=== PATIENT | female | born 1945 | race Caucasian/White ===

== ENCOUNTER 2018-11-07 14:18 | Inpatient (IN) | payer MEDICARE, OTHER ==
[2018-11-07] MEDS ORDERED: DIMETHICONE TP PRN (17:11)
[2018-11-07] MEDS ORDERED: NON-FORMULARY ITEM (Hydrocodone/Apap 5-325 Tab^^^ 1 TAB) PO PRN (17:11)
[2018-11-07] MEDS ORDERED: Oxy-IR 5 MG PO PRN (17:11)
[2018-11-07] MEDS ORDERED: NORCO 5/325 MG PO PRN (17:18)
[2018-11-07] MEDS: VITAMIN D2 PO SCH (17:22)
[2018-11-07] MEDS ORDERED: MEDICATION INTERVENTION PO SCH (17:30)
[2018-11-07] MEDS ORDERED: MEDICATION INTERVENTION MC SCH (17:30)
[2018-11-07] MEDS: Toprol Xl 50 MG PO SCH (21:30)
[2018-11-07] MEDS: Vitamin C 500 MG PO SCH (21:30)
[2018-11-07] MEDS: Apresoline 25 MG TABLET PO SCH (21:30)
[2018-11-07] MEDS: xanAX 0.5 MG PO SCH (21:30)
[2018-11-07] MEDS: TYLENOL EXTRA STRENGTH 500 MG PO PRN (21:32)
[2018-11-08] MEDS: TYLENOL EXTRA STRENGTH 500 MG PO PRN ×2 (05:37→15:08)
[2018-11-08] MEDS: Vitamin C 500 MG PO SCH ×3 (05:37→21:11)
[2018-11-08] MEDS: Cyclobenzaprine 10 MG PO PRN (08:18)
[2018-11-08] MEDS ORDERED: ANASTROZOLE 1 MG PO SCH (10:00)
[2018-11-08] MEDS ORDERED: Aplisol ID ONE (10:00)
[2018-11-08] MEDS ORDERED: NON-FORMULARY ITEM (Potassium Chloride [K-Dur] 20 MEQ) PO SCH (10:00)
[2018-11-08] MEDS: Apresoline 25 MG TABLET PO SCH ×3 (10:24→21:11)
[2018-11-08] MEDS: MAG-OX 400 PO SCH (10:24)
[2018-11-08] MEDS: Colace 100 MG PO SCH ×2 (10:24→21:11)
[2018-11-08] MEDS: ULTRAM 50 MG PO PRN ×3 (10:24→23:24)
[2018-11-08] MEDS: Klor Con 10 MEQ PO SCH (10:25)
[2018-11-08] MEDS: Toprol Xl 50 MG PO SCH ×2 (10:25→21:11)
[2018-11-08] MEDS: ECOTRIN 81 MG PO SCH (10:25)
[2018-11-08] MEDS: Lasix 40 MG PO SCH (10:25)
[2018-11-08] MEDS: xanAX 0.5 MG PO SCH ×2 (10:25→21:11)
[2018-11-08] MEDS: NORVASC 5 MG PO SCH (10:25)
[2018-11-09] MEDS: Vitamin C 500 MG PO SCH ×3 (04:44→21:34)
[2018-11-09] MEDS: ULTRAM 50 MG PO PRN ×2 (04:44→21:34)
--- NOTE | 2018-11-09 08:03 | HP ---
HISTORY OF PRESENT ILLNESS: This is a 73 year-old patient of mine transferred from [facility] to a swing-bed after having a fall outside her house when she was trying to climb up onto the lawnmower. She reports she does not think she lifted her foot up enough and tumbled backwards. She was found to have a right radius fracture which she had surgery on 11/03/2018 as well as a left fifth metatarsal fracture and a lumbar compression fracture. She is right-handed and lives alone. She has a brother and [id number] that [place]. She reports that she is having some trouble with the opioid pain medication as it makes her nauseated. She is asking about having a shoe that she can put on instead of a whole boot when she has to get up and use the bathroom in the middle of the night. She reports she has not had a bowel movement since she went into the hospital at [facility] on and had some abdominal pain from constipation. She reports a good appetite. When she fell she denied hitting her head or any loss of consciousness. She was actually able to get up and walk to the house to call for help as there was no one nearby that saw her fall and she did not have her cell phone with her. REVIEW OF SYSTEMS: No chest pain. No shortness of breath. No nausea. She has constipation. No diarrhea. No dysuria. No rash. No fever. MEDICATIONS: Please see the home medication reconciliation form which I have reviewed. ALLERGIES: CODEINE, MORPHINE, OLMESARTAN MEDOXOMIL. PAST MEDICAL HISTORY: Hypertension. Anxiety. Stage I breast cancer in 2015 [address] follows with [address] Espinosa. PAST SURGICAL HISTORY: Left breast surgery. Tonsillectomy. Left knee surgery with Dr. Moody [place]ay[place]. Colonoscopy in 2013. Hysterectomy for left ovarian cyst and fibroid. Right wrist surgery with Dr. Brand. SOCIAL HISTORY: She lives alone. No tobacco or alcohol use. FAMILY HISTORY: Her mother had congestive heart failure, father had mitral valve regurgitation. Her sister had a malignant tumor of the breast. PHYSICAL EXAMINATION: VITAL SIGNS: Temperature current 98.1F, heart rate 86, respiratory rate 18, blood pressure 118/75, weight 81.7 kg. Oxygen saturation 94% on room air. GENERAL: The patient is a pleasant talkative lady sitting up in no acute distress. CVS: She has a regular rate and rhythm. No murmurs, gallops or rubs are appreciated. CHEST: Clear to auscultation bilaterally. ABDOMEN: Soft, nontender, nondistended with normal bowel sounds. EXTREMITIES: No clubbing, cyanosis or edema. SKIN: She has bruising over her left foot and ankle. She has a splint in place around her right wrist. The soft part of the splint is causing some swelling of her right thumb. She has good capillary refill in all five fingers. LABORATORY DATA AND TESTS: None here although reviewed her labs from [facility]. Her creatinine was very slightly elevated. ASSESSMENT AND PLAN: 1) RIGHT RADIAL FRACTURE: She has a splint in place and follow up scheduled with the orthopedic surgeon that did her surgery. 2) LEFT FIFTH METATARSAL FRACTURE: She has a boot that she is to wear. 3) LUMBAR SPINE COMPRESSION FRACTURE: She is to see neurosurgery in about six weeks. 4) GAIT INSTABILITY: She has PT and OT working with her while here in rehab. 5) HYPERTENSION: Will continue her home antihypertensive. 6) ANXIETY: Will continue her home medication. 7) DEEP VENOUS THROMBOSIS PROPHYLAXIS: Will start Lovenox as it is hard to wear SCD and ALFIE hose with a fracture of her left fifth metatarsal. I discussed this with the patient this morning.
[2018-11-09] MEDS: Toprol Xl 50 MG PO SCH ×2 (08:21→21:34)
[2018-11-09] MEDS: xanAX 0.5 MG PO SCH ×2 (08:21→21:34)
[2018-11-09] MEDS: Colace 100 MG PO SCH ×2 (08:21→21:34)
[2018-11-09] MEDS: TYLENOL EXTRA STRENGTH 500 MG PO PRN ×2 (08:21→14:35)
[2018-11-09] MEDS: Klor Con 10 MEQ PO SCH (08:21)
[2018-11-09] MEDS: MAG-OX 400 PO SCH (08:21)
[2018-11-09] MEDS: Lasix 40 MG PO SCH (08:22)
[2018-11-09] MEDS: ENOXAPARIN SODIUM SQ SCH (08:22)
[2018-11-09] MEDS: NORVASC 5 MG PO SCH (08:22)
[2018-11-09] MEDS: Apresoline 25 MG TABLET PO SCH ×3 (08:22→21:34)
[2018-11-09] MEDS: ECOTRIN 81 MG PO SCH (08:22)
[2018-11-09] MEDS: SENOKOT 8.6 MG PO PRN (08:23)
[2018-11-10] MEDS: Vitamin C 500 MG PO SCH ×3 (06:11→21:32)
--- NOTE | 2018-11-10 08:25 | PCM.NOTE ---
Date and Time: 11/10/18818 Subjective Assessment: Patient reports continued trouble getting packages open like her brown sugar for her oatmeal this AM. She reports back pain this AM after being in bed for 3 hours. She reports sleeping well. She was able to have a stool yesterday but not much. She has a walker with a arm rest for her right arm and states this is working well for her. She is anxious to know when she can go home. - Review of Systems Constitutional: No Symptoms Eyes: No Symptoms Ears, Nose, & Throat: No Symptoms Respiratory: No Symptoms, No Short Of Breath Cardiac: No Symptoms Abdominal/Gastrointestinal: Constipation Genitourinary Symptoms: No Symptoms Musculoskeletal: Other (back pain) Objective Exam General Appearance: no apparent distress, alert Neurologic Exam: alert, cooperative, normal mood/affect Skin Exam: normal color, warm, dry Wound Assessment: Skin/Wound Assessment Wound/Incision Assessment Start: 11/07/18 17: 30 Text: Status: Active Freq: Q12H Protocol: Document 11/09/18 20:00 BW (Rec: 11/09/18 20:46 BW [id number]) Wound/Incision Assessment Left Distal Toe Wound Assessment Shift Assessment Wound Type left 5th toe fracture Wound Stage Non Pressure Wound Drainage Amount None General Appearance Open to air Clean/Dry Comment bruising to bottom lateral aspect of toe-greenish brown in color Right Lower Arm Wound Assessment Shift Assessment Wound Type fracture with splinting Dressing Status Dry & Intact Drainage Amount None Drainage Odor None/Absent Comment Right wrist/arm wrapped in splint/cast Wound Photo Photo Taken No Respiratory Exam: normal breath sounds, lungs clear, No crackles/rales, No rhonchi, No wheezing Cardiovascular Exam: regular rate/rhythm, normal heart sounds, No murmur, No friction rub, No gallop Gastrointestinal/Abdomen Exam: soft, normal bowel sounds, No tenderness, No distention Extremity Exam: other (no c/c/e; brusing over left foot and ankle; right wrist/ forearm in splint) OBJECTIVE DATA Vital Signs: Vital Signs - 24 hr Temp Pulse Resp BP Pulse Ox 11/10/18 07:00 97 11/09/18 19:49 97.9 F 87 18 136/82 96 Oxygen-Last 24 hours O2 Percentage 2 Liters = 28% Pain Assessment - Last Documented Pain Intensity 3 Pain Scale Used 0-10 Pain Scale,FLACC Intake and Output: Intake & Output 11/08/18 11/09/18 11/10/18 11/11/18 06:59 06:59 06:59 06:59 Intake Total 456 877 1118 Balance 558 423 5189 Weight 81.7 kg 81.7 kg Assessment/Plan (1) Right radial fracture Current Visit: Yes Status: Acute Qualifiers: Encounter type: subsequent encounter Assessment & Plan: Management per ortho/trauma surgeon whom patient will follow up with as an outpatient. S/p surgery on 11/03/18. Code(s): S52.91XA - UNSP FRACTURE OF RIGHT FOREARM, INIT FOR CLOS FX (2) Metatarsal fracture Current Visit: Yes Status: Acute Qualifiers: Metatarsal bone: fifth Fracture type: closed Laterality: left Fracture healing: with routine healing Assessment & Plan: Continue boot; follow up with ortho/trauma surgeon as outpatient. (3) Compression fx, lumbar spine Current Visit: Yes Status: Acute Assessment & Plan: Follow up scheduled with neurosurgery. Continue tramadol as needed for pain. (4) Gait instability Current Visit: Yes Status: Acute Assessment & Plan: Has walker with arm rest in room; PT/OT following and treating. Code(s): R26.81 - UNSTEADINESS ON FEET (5) Hypertension Current Visit: Yes Status: Acute Assessment & Plan: well controlled. Code(s): I10 - ESSENTIAL (PRIMARY) HYPERTENSION (6) Anxiety Current Visit: Yes Status: Acute Assessment & Plan: Continue home medication. Code(s): F41.9 - ANXIETY DISORDER, UNSPECIFIED (7) DVT prophylaxis Current Visit: Yes Status: Acute Assessment & Plan: Continue lovenox as SCD And blayne hose difficult to use with 5th metatarsal fx. Code(s): Z29.9 - ENCOUNTER FOR PROPHYLACTIC MEASURES, UNSPECIFIED
[2018-11-10] MEDS: Klor Con 10 MEQ PO SCH (10:10)
[2018-11-10] MEDS: ECOTRIN 81 MG PO SCH (10:11)
[2018-11-10] MEDS: ENOXAPARIN SODIUM SQ SCH (10:11)
[2018-11-10] MEDS: MAG-OX 400 PO SCH (10:11)
[2018-11-10] MEDS: xanAX 0.5 MG PO SCH ×2 (10:11→21:32)
[2018-11-10] MEDS: ULTRAM 50 MG PO PRN (10:11)
[2018-11-10] MEDS: Toprol Xl 50 MG PO SCH ×2 (10:11→21:32)
[2018-11-10] MEDS: Apresoline 25 MG TABLET PO SCH ×3 (10:11→21:32)
[2018-11-10] MEDS: Colace 100 MG PO SCH ×2 (10:11→21:32)
[2018-11-10] MEDS: Lasix 40 MG PO SCH (10:11)
[2018-11-10] MEDS: NORVASC 5 MG PO SCH (10:11)
[2018-11-10] MEDS: TYLENOL EXTRA STRENGTH 500 MG PO PRN ×2 (12:09→21:32)
[2018-11-11] MEDS: Vitamin C 500 MG PO SCH ×3 (06:40→21:01)
[2018-11-11] MEDS: ULTRAM 50 MG PO PRN ×3 (06:40→21:01)
--- NOTE | 2018-11-11 08:20 | PCM.NOTE ---
Date and Time: 11/11/18818 Subjective Assessment: doing ok, stable - Review of Systems Constitutional: No Fever, No Chills Eyes: No Symptoms Ears, Nose, & Throat: No Symptoms Respiratory: No Cough, No Short Of Breath Cardiac: No Chest Pain, No Edema, No Syncope Abdominal/Gastrointestinal: No Abdominal Pain, No Nausea, No Vomiting, No Diarrhea Genitourinary Symptoms: No Dysuria Musculoskeletal: No Back Pain, No Neck Pain Skin: No Rash Neurological: No Dizziness, No Focal Weakness, No Sensory Changes Psychological: No Symptoms Endocrine: No Symptoms Hematologic/Lymphatic: No Symptoms Immunological/Allergic: No Symptoms Objective Exam General Appearance: no apparent distress, alert Neurologic Exam: alert, oriented x 3, cooperative, normal mood/affect, nml cerebellar function, sensation nml, No motor deficits Skin Exam: normal color, warm, dry Wound Assessment: Skin/Wound Assessment Wound/Incision Assessment Start: 11/07/18 17: 30 Text: Status: Active Freq: Q12H Protocol: Document 11/10/18 20:00 MG (Rec: 11/10/18 21:46 MG [id number]) Wound/Incision Assessment Left Distal Toe Wound Assessment Shift Assessment Wound Type left 5th toe fracture Wound Stage Non Pressure Wound Drainage Amount None General Appearance Open to air Clean/Dry Comment bruising to bottom lateral aspect of toe-greenish brown in color Right Lower Arm Wound Assessment Shift Assessment Wound Type fracture with splinting Dressing Status Dry & Intact Drainage Amount None Drainage Odor None/Absent Comment Right wrist/arm wrapped in splint/cast Eye Exam: PERRL, EOMI, eyes nml inspection Ears, Nose, Throat Exam: normal ENT inspection, pharynx normal, moist mucous membranes Neck Exam: normal inspection, non-tender, supple, full range of motion Respiratory Exam: normal breath sounds, lungs clear, No respiratory distress Cardiovascular Exam: regular rate/rhythm, normal heart sounds Gastrointestinal/Abdomen Exam: soft, No tenderness, No mass Extremity Exam: normal inspection, normal range of motion Back Exam: normal inspection, normal range of motion, No CVA tenderness, No vertebral tenderness Pelvic Exam: deferred Rectal Exam: deferred OBJECTIVE DATA Vital Signs: Vital Signs - 24 hr Temp Pulse Resp BP Pulse Ox 11/11/18 08:12 96 11/11/18 07:29 98.6 F 81 18 131/89 92 L 11/10/18 20:00 98.2 F 96 H 18 125/69 92 L 11/10/18 19:52 89 L 11/10/18 15:04 94 L 11/10/18 11:01 93 L Oxygen-Last 24 hours O2 Percentage 2 Liters = 28% Pain Assessment - Last Documented Pain Intensity 3 Pain Scale Used [facility] Intake and Output: Intake & Output 11/08/18 11/09/18 11/10/18 11/11/18 11:59 11:59 11:59 11:59 Intake Total 517 962 1270 800 Balance 905 670 0483 800 Weight 81.7 kg 81.7 kg Multi-Disciplinary Progress Notes: Multi-Disciplinary Progress Notes 11/10/18 15:13 Case Management Note by Adore Hayward VISITED WITH PT AND REVIEWED DISCHARGE PLAN, WANTS TO MAXIMIZE SWING BED DAYS FOR PT AND OT. AGAIN, DISCUSSED HOME WITH [facility] VS HOME WITH OUTPATIENT PT/OT. HOPING FOR OUTPATIENT, BUT WANTS TO WAIT UNTIL CLOSER TO DC TIME TO MAKE DECISION. NO ADDNL NEEDS IDENTIFIED AT PRESENT. WILL FOLLOW. Initialized on 11/10/18 15:13 - END OF NOTE Assessment/Plan (1) Compression fx, lumbar spine Current Visit: Yes Status: Chronic Qualifiers: Encounter type: subsequent encounter Fracture healing: with routine healing Assessment & Plan: Last Vital Signs Temp 98.6 F 11/11/18 07:29 Pulse 81 11/11/18 07:29 Resp 18 11/11/18 07:29 BP 131/89 11/11/18 07:29 Pulse Ox 96 11/11/18 08:12 Allergies codeine [Codeine] Allergy (Severe, Verified 02/16/18 08:50) Nausea morphine Allergy (Intermediate, Verified 02/16/18 08:50) Vomiting olmesartan medoxomil [From Benicar] Allergy (Verified 02/16/18 08:50) Active Medications Acetaminophen (Tylenol Extra Strength 500 Mg) 1,000 mg PO Q6HPRN PRN PRN Reason: PAIN Stop: 12/08/18 08:53 Last Admin: 11/10/18 21:32 Dose: 1,000 mg Hydrocodone Bitart/Acetaminophen ([place] 5/325 Mg) 1 tab PO Q4H PRN PRN PRN Reason: PAIN Stop: 11/12/18 17:17 Alprazolam (Xanax 0.5 Mg) 0.5 mg PO BID [facility] Stop: 12/07/18 21:59 Last Admin: 11/10/18 21:32 Dose: 0.5 mg Amlodipine Besylate (Norvasc 5 Mg) 5 mg PO DAILY [facility] Stop: 12/08/18 09:59 Last Admin: 11/10/18 10:11 Dose: 5 mg Ascorbic Acid (Vitamin C 500 Mg) 500 mg PO Q8HT LANIE Stop: 12/07/18 21:59 Last Admin: 11/11/18 06:40 Dose: 500 mg Aspirin (Ecotrin 81 Mg) 81 mg PO DAILY [facility] Stop: 12/08/18 09:59 Last Admin: 11/10/18 10:11 Dose: 81 mg Cyclobenzaprine HCl (Cyclobenzaprine 10 Mg) 5 mg PO BID PRN PRN PRN Reason: pain Stop: 12/07/18 17:10 Last Admin: 11/08/18 08:18 Dose: 5 mg Docusate Sodium (Colace 100 Mg) 100 mg PO BID [facility] Stop: 12/08/18 09:59 Last Admin: 11/10/18 21:32 Dose: 100 mg Enoxaparin Sodium (Enoxaparin Sodium) 40 mg SQ DAILY [facility] Stop: 12/09/18 09:59 Last Admin: 11/10/18 10:11 Dose: 40 mg Ergocalciferol (Vitamin D2) 50,000 unit PO Q7D [facility] Stop: 12/14/18 09:59 Last Admin: 11/07/18 17:22 Dose: Not Given Furosemide (Lasix 40 Mg) 40 mg PO DAILY [facility] Stop: 12/08/18 09:59 Last Admin: 11/10/18 10:11 Dose: 40 mg Hydralazine HCl (Apresoline 25 Mg Tablet) 25 mg PO TID [facility] Stop: 12/07/18 21:59 Last Admin: 11/10/18 21:32 Dose: 25 mg Magnesium Oxide (Mag-Ox 400) 400 mg PO DAILY [facility] Stop: 12/08/18 09:59 Last Admin: 11/10/18 10:11 Dose: 400 mg Metoprolol Succinate (Toprol Xl 50 Mg) 50 mg PO BID [facility] Stop: 12/07/18 21:59 Last Admin: 11/10/18 21:32 Dose: 50 mg Miscellaneous Information (Medication Intervention) 1 each PO .RN TO CHECK ON LANIE Stop: 12/07/18 17:29 Miscellaneous Information (Medication Intervention) 1 each MC .RN TO CHECK ON LANIE Stop: 12/07/18 17:29 Potassium Chloride (Klor Con 10 Meq) 20 meq PO DAILY LANIE Stop: 12/08/18 09:59 Last Admin: 11/10/18 10:10 Dose: 20 meq Senna (Senokot 8.6 Mg) 8.6 mg PO DAILY PRN PRN PRN Reason: CONSTIPATION Stop: 12/08/18 08:53 Last Admin: 11/09/18 08:23 Dose: 8.6 mg Tramadol HCl (Ultram 50 Mg) 50 mg PO Q6H PRN PRN PRN Reason: PAIN Stop: 12/08/18 08:53 Last Admin: 11/11/18 06:40 Dose: 50 mg Intake & Output 11/10/18 11/11/18 11:59 11:59 Intake Total 1700 800 Balance 1700 800 (2) Gait instability Current Visit: Yes Status: Acute Code(s): R26.81 - UNSTEADINESS ON FEET (3) Hypertension Current Visit: Yes Status: Acute Code(s): I10 - ESSENTIAL (PRIMARY) HYPERTENSION (4) Metatarsal fracture Current Visit: Yes Status: Acute Qualifiers: Metatarsal bone: fifth Fracture type: closed Laterality: left Fracture healing: with routine healing
[2018-11-11] MEDS: TYLENOL EXTRA STRENGTH 500 MG PO PRN (09:04)
[2018-11-11] MEDS: MAG-OX 400 PO SCH (09:24)
[2018-11-11] MEDS: NORVASC 5 MG PO SCH (09:24)
[2018-11-11] MEDS: ENOXAPARIN SODIUM SQ SCH (09:25)
[2018-11-11] MEDS: Colace 100 MG PO SCH ×2 (09:25→21:01)
[2018-11-11] MEDS: ECOTRIN 81 MG PO SCH (09:25)
[2018-11-11] MEDS: xanAX 0.5 MG PO SCH ×2 (09:25→21:01)
[2018-11-11] MEDS: Klor Con 10 MEQ PO SCH (09:26)
[2018-11-11] MEDS: Toprol Xl 50 MG PO SCH ×2 (09:27→21:01)
[2018-11-11] MEDS: Lasix 40 MG PO SCH (09:27)
[2018-11-11] MEDS: Apresoline 25 MG TABLET PO SCH ×3 (09:27→21:00)
[2018-11-12] MEDS: ULTRAM 50 MG PO PRN ×3 (04:33→20:17)
[2018-11-12] MEDS: Vitamin C 500 MG PO SCH ×3 (06:42→21:45)
[2018-11-12] MEDS: Cyclobenzaprine 10 MG PO PRN (08:33)
[2018-11-12] MEDS: ENOXAPARIN SODIUM SQ SCH (09:27)
[2018-11-12] MEDS: xanAX 0.5 MG PO SCH ×2 (09:28→21:39)
[2018-11-12] MEDS: Lasix 40 MG PO SCH (09:28)
[2018-11-12] MEDS: Klor Con 10 MEQ PO SCH (09:28)
[2018-11-12] MEDS: Colace 100 MG PO SCH ×2 (09:28→21:39)
[2018-11-12] MEDS: Toprol Xl 50 MG PO SCH ×2 (09:28→21:40)
[2018-11-12] MEDS: Apresoline 25 MG TABLET PO SCH ×3 (09:28→21:39)
[2018-11-12] MEDS: ECOTRIN 81 MG PO SCH (09:28)
[2018-11-12] MEDS: NORVASC 5 MG PO SCH (09:28)
[2018-11-12] MEDS: MAG-OX 400 PO SCH (09:28)
--- NOTE | 2018-11-12 09:47 | PCM.NOTE ---
Date and Time: 11/12/18946 Subjective Assessment: doing better - Review of Systems Constitutional: No Fever, No Chills Eyes: No Symptoms Ears, Nose, & Throat: No Symptoms Respiratory: No Cough, No Short Of Breath Cardiac: No Chest Pain, No Edema, No Syncope Abdominal/Gastrointestinal: No Abdominal Pain, No Nausea, No Vomiting, No Diarrhea Genitourinary Symptoms: No Dysuria Musculoskeletal: No Back Pain, No Neck Pain Skin: No Rash Neurological: No Dizziness, No Focal Weakness, No Sensory Changes Psychological: No Symptoms Endocrine: No Symptoms Hematologic/Lymphatic: No Symptoms Immunological/Allergic: No Symptoms Objective Exam General Appearance: no apparent distress, alert Neurologic Exam: alert, oriented x 3, cooperative, normal mood/affect, nml cerebellar function, sensation nml, No motor deficits Skin Exam: normal color, warm, dry Wound Assessment: Skin/Wound Assessment Wound/Incision Assessment Start: 11/07/18 17: 30 Text: Status: Active Freq: Q12H Protocol: Document 11/12/18 08:00 [facility] (Rec: 11/12/18 09:06 [id number]) Wound/Incision Assessment Left Distal Toe Wound Assessment Shift Assessment Wound Type left 5th toe fracture Wound Stage Non Pressure Wound Drainage Amount None General Appearance Open to air Clean/Dry Comment bruising to bottom lateral aspect of toe-greenish brown in color, no change noted. Right Lower Arm Wound Assessment Shift Assessment Wound Type fracture with splinting Dressing Status Dry & Intact Drainage Amount None Drainage Odor None/Absent Comment Right wrist/arm wrapped in splint/cast, no change noted. Wound Photo Photo Taken No Eye Exam: PERRL, EOMI, eyes nml inspection Ears, Nose, Throat Exam: normal ENT inspection, pharynx normal, moist mucous membranes Neck Exam: normal inspection, non-tender, supple, full range of motion Respiratory Exam: normal breath sounds, lungs clear, No respiratory distress Cardiovascular Exam: regular rate/rhythm, normal heart sounds Gastrointestinal/Abdomen Exam: soft, No tenderness, No mass Extremity Exam: normal inspection, normal range of motion Back Exam: normal inspection, normal range of motion, No CVA tenderness, No vertebral tenderness Pelvic Exam: deferred Rectal Exam: deferred OBJECTIVE DATA Vital Signs: Vital Signs - 24 hr Temp Pulse Resp BP Pulse Ox 11/12/18 07:56 98.7 F 79 17 149/84 93 L 11/12/18 07:10 93 L 11/11/18 20:10 93 L 11/11/18 19:31 98.4 F 84 18 139/78 93 L 11/11/18 17:00 92 L Pain Assessment - Last Documented Pain Intensity 6 Pain Scale Used 0-10 Pain Scale Intake and Output: Intake & Output 11/09/18 11/10/18 11/11/18 11/12/18 11:59 11:59 11:59 11:59 Intake Total 960 1700 800 660 Balance 960 1700 800 660 Weight 81.7 kg Assessment/Plan (1) Compression fx, lumbar spine Current Visit: Yes Status: Chronic Qualifiers: Encounter type: subsequent encounter Fracture healing: with routine healing Assessment & Plan: Chief Complaint Diagnosis deconditioning r/t fall Allergies Allergy/AdvReac Type Severity Reaction Status Date / Time codeine [Codeine] Allergy Severe Nausea Verified 02/16/18 08:50 morphine Allergy Intermediate Vomiting Verified 02/16/18 08:50 olmesartan medoxomil Allergy Verified 02/16/18 08:50 [facility] Vital Signs (Last 24 hours) Temp Pulse Resp BP Pulse Ox 11/12/18 07:56 98.7 F 79 17 149/84 93 L 11/12/18 07:10 93 L 11/11/18 20:10 93 L 11/11/18 19:31 98.4 F 84 18 139/78 93 L 11/11/18 17:00 92 L Home Medications Medication Instructions Recorded Confirmed Last Taken Type Acetaminophen 325 mg [Tylenol 650 mg PO Q8H 11/07/18 11/07/18 11/07/18 History 325 mg] Acetaminophen [Tylenol Extra 1,000 mg PO Q8H PRN 11/07/18 11/07/18 11/07/18 History Strength] Alprazolam 0.25 mg [xanAX 0.25 0.5 mg PO BID 11/07/18 11/07/18 11/07/18 History MG] Amlodipine Besylate 5 mg 5 mg PO DAILY 11/07/18 11/07/18 11/07/18 History [Norvasc 5 mg] Anastrozole [Arimidex] 1 mg PO DAILY 11/07/18 11/07/1811/07/19 History Ascorbic Acid 500 mg [Vitamin C 500 mg PO Q8H 11/07/18 11/07/18 11/07/18 History 500 MG] Aspirin EC 81 mg [Ecotrin 81 81 mg PO DAILY 11/07/18 11/07/18 11/07/18 History mg] Cyclobenzaprine HCl 10 mg 5 mg PO BID PRN 11/07/18 11/07/18 11/07/18 History [Cyclobenzaprine 10 MG] Dimethicone [Monistat Soothing 42 gm TP BID PRN 11/07/18 11/07/18 Unknown History Care] Ergocalciferol (Vitamin D2) 50,000 unit PO Q7D 11/07/18 11/07/18 11/07/18 History [Vitamin D2] Furosemide 40 mg [Lasix 40 40 mg PO DAILY 11/07/18 11/07/18 11/07/18 History MG] HydrALAzine HCL 25 MG TAB 1 tab PO TID 11/07/18 11/07/18 11/07/18 History [Apresoline 25 MG TABLET] Hydrocodone/APAP 5-325 Tab^^^ 1 tab PO Q4H PRN MDD 6 11/07/18 11/07/18 Unknown History [[place] 5-325 Tablet^^^] Magnesium Oxide 400 mg [Mag-Ox 400 mg PO DAILY 11/07/18 11/07/18 11/07/18 History 400] Metoprolol Succinate 50 mg 1 tab PO BID 11/07/18 11/07/18 11/07/18 History [Toprol Xl 50 MG] Oxycodone HCl 5 mg Ir [Oxy-IR 5 5 mg PO Q6H PRN 11/07/18 11/07/18 11/06/18 History MG] Potassium Chloride [K-Dur] 20 meq PO DAILY 11/07/18 11/07/18 11/07/18 History Current Medications Generic Name Dose Route Start Last Admin Trade Name Freq PRN Reason Stop Dose Admin Acetaminophen 1,000 mg 11/08/18 08:57 11/11/18 09:04 Tylenol Extra Strength 500 Mg PO 12/08/18 08:53 1,000 mg Q6HPRN PRN Administration PAIN Hydrocodone Bitart/Acetaminophen 1 tab 11/07/18 17:18 [place] 5/325 Mg PO 11/12/18 17:17 Q4H PRN PRN PAIN Alprazolam 0.5 mg 11/07/18 22:00 11/12/18 09:28 Xanax 0.5 Mg PO 12/07/18 21:59 0.5 mg BID LANIE Administration Amlodipine Besylate 5 mg 11/08/18 10:00 11/12/18 09:28 Norvasc 5 Mg PO 12/08/18 09:59 5 mg DAILY LANIE Administration Ascorbic Acid 500 mg 11/07/18 22:00 11/12/18 06:42 Vitamin C 500 Mg PO 12/07/18 21:59 500 mg Q8HT LANIE Administration Aspirin 81 mg 11/08/18 10:00 11/12/18 09:28 Ecotrin 81 Mg PO 12/08/18 09:59 81 mg DAILY LANIE Administration Cyclobenzaprine HCl 5 mg 11/07/18 17:11 11/12/18 08:33 Cyclobenzaprine 10 Mg PO 12/07/18 17:10 5 mg BID PRN PRN Administration pain Docusate Sodium 100 mg 11/08/18 10:00 11/12/18 09:28 Colace 100 Mg PO 12/08/18 09:59 100 mg BID LANIE Administration Enoxaparin Sodium 40 mg 11/09/18 10:00 11/12/18 09:27 Enoxaparin Sodium SQ 12/09/18 09:59 40 mg DAILY LANIE Administration Ergocalciferol 50,000 unit 11/14/18 10:00 11/07/18 17:22 Vitamin D2 PO 12/14/18 09:59 Not Given Q7D LANIE Furosemide 40 mg 11/08/18 10:00 11/12/18 09:28 Lasix 40 Mg PO 12/08/18 09:59 40 mg DAILY LANIE Administration Hydralazine HCl 25 mg 11/07/18 22:00 11/12/18 09:28 Apresoline 25 Mg Tablet PO 12/07/18 21:59 25 mg TID LANIE Administration Magnesium Oxide 400 mg 11/08/18 10:00 11/12/18 09:28 Mag-Ox 400 PO 12/08/18 09:59 400 mg DAILY LANIE Administration Metoprolol Succinate 50 mg 11/07/18 22:00 11/12/18 09:28 Toprol Xl 50 Mg PO 12/07/18 21:59 50 mg BID LANIE Administration Miscellaneous Information 1 each 11/07/18 17:30 Medication Intervention PO 12/07/18 17:29 .RN TO CHECK ON LANIE Miscellaneous Information 1 each 11/07/18 17:30 Medication Intervention MC 12/07/18 17:29 .RN TO CHECK ON LANIE Potassium Chloride 20 meq 11/08/18 10:00 11/12/18 09:28 Klor Con 10 Meq PO 12/08/18 09:59 20 meq DAILY LANIE Administration Senna 8.6 mg 11/08/18 08:54 11/09/18 08:23 Senokot 8.6 Mg PO 12/08/18 08:53 8.6 mg DAILY PRN PRN Administration CONSTIPATION Tramadol HCl 50 mg 11/08/18 08:54 11/12/18 04:33 Ultram 50 Mg PO 12/08/18 08:53 50 mg Q6H PRN PRN Administration PAIN Discontinued Medications Generic Name Dose Route Start Last Admin Trade Name Freq PRN Reason Stop Dose Admin Acetaminophen 1,000 mg 11/07/18 17:11 11/08/18 05:37 Tylenol Extra Strength 500 Mg PO 12/07/18 17:10 1,000 mg Q8H/PRN PRN Administration PAIN Oxycodone HCl 5 mg 11/07/18 17:11 Oxy-Ir 5 Mg PO 11/12/18 17:10 Q6H/PRN PRN PAIN Tuberculin PPD 5 unit 11/08/18 10:00 11/08/18 15:37 Aplisol ID 11/08/18 10:01 5 unit ONCE ONE Administration Intake & Output (Last 24 hours) 11/09/18 11/10/18 11/11/18 11/12/18 11:59 11:59 11:59 11:59 Intake Total 960 1700 800 660 Balance 960 1700 800 660 Weight 81.7 kg Orders (Last 24 hours) Category Date Time Status BMP Routine Lab 11/21/18 05:00 Ordered Ergocalciferol (Vitamin D2) [Vitamin D2] Med 11/14/18 10:00 Active 50,000 unit PO Q7D (2) Gait instability Current Visit: Yes Status: Acute Code(s): R26.81 - UNSTEADINESS ON FEET (3) Hypertension Current Visit: Yes Status: Acute Code(s): I10 - ESSENTIAL (PRIMARY) HYPERTENSION (4) Metatarsal fracture Current Visit: Yes Status: Acute Qualifiers: Metatarsal bone: fifth Fracture type: closed Laterality: left Fracture healing: with routine healing
[2018-11-13] MEDS: ULTRAM 50 MG PO PRN (04:43)
[2018-11-13] MEDS: Vitamin C 500 MG PO SCH ×3 (04:46→21:47)
--- NOTE | 2018-11-13 08:15 | PCM.NOTE ---
Date and Time: 11/13/18 08 Subjective Assessment: She reports a small stool yesterday and day before. Offered to add miralax to what she is taking but wants to wait and see how today goes. She reports not sleeping well due to lower back pain from compression fracture. Tramadol does help some. Discussed scheduling tramadol and still having it where she could ask for some too. She is agreeable to this. Occasional sharp pain in her right arm but doesn't bother her much and left foot not bothering her at all. - Review of Systems Constitutional: Other (trouble sleeping due to back pain) Respiratory: No Symptoms Cardiac: No Symptoms Abdominal/Gastrointestinal: Constipation Genitourinary Symptoms: No Symptoms Musculoskeletal: Back Pain Objective Exam General Appearance: no apparent distress, alert, other (right arm in splint; bruising around left ankle) Neurologic Exam: alert, cooperative, normal mood/affect Skin Exam: normal color, warm, dry Respiratory Exam: normal breath sounds, lungs clear, No crackles/rales, No rhonchi, No wheezing Cardiovascular Exam: regular rate/rhythm, normal heart sounds, No murmur, No friction rub, No gallop Gastrointestinal/Abdomen Exam: soft, normal bowel sounds, No tenderness, No distention, No mass Extremity Exam: normal inspection, other (no c/c/e) OBJECTIVE DATA Vital Signs: Vital Signs - 24 hr Temp Pulse Resp BP Pulse Ox 11/13/18 07:13 98.0 F 82 18 134/73 91 L 11/12/18 20:08 91 L 11/12/18 19:26 98.7 F 90 18 132/77 92 L Pain Assessment - Last Documented Pain Intensity 0 Pain Scale Used [facility] Intake and Output: Intake & Output 11/11/18 11/12/18 11/13/18 11/14/18 06:59 06:59 06:59 06:59 Intake Total 1300 660 660 Balance 1300 660 660 Assessment/Plan (1) Compression fx, lumbar spine Current Visit: Yes Status: Chronic Qualifiers: Encounter type: subsequent encounter Fracture healing: with routine healing Assessment & Plan: Will schedule tramadol and then also have tramadol prn. She reports this does not adversely affect her like other pain medication has in the past. Follow up already scheduled as outpatient with Neurosurgery. Continue PT. Ice as needed to help with pain also. (2) Right radial fracture Current Visit: Yes Status: Acute Qualifiers: Encounter type: subsequent encounter Assessment & Plan: s/p surgery. Follow up scheduled with ortho. Continue PT/OT. Code(s): S52.91XA - UNSP FRACTURE OF RIGHT FOREARM, INIT FOR CLOS FX (3) Metatarsal fracture Current Visit: Yes Status: Acute Qualifiers: Metatarsal bone: fifth Fracture type: closed Laterality: left Fracture healing: with routine healing Assessment & Plan: Continue boot when up walking. OK to use foot splint if just getting up to the bathroom at night. (4) Gait instability Current Visit: Yes Status: Acute Assessment & Plan: Continue PT. Code(s): R26.81 - UNSTEADINESS ON FEET (5) Hypertension Current Visit: Yes Status: Acute Assessment & Plan: Well controlled. Continue current medication. Code(s): I10 - ESSENTIAL (PRIMARY) HYPERTENSION (6) Anxiety Current Visit: Yes Status: Acute Assessment & Plan: well controlled. Code(s): F41.9 - ANXIETY DISORDER, UNSPECIFIED (7) DVT prophylaxis Current Visit: Yes Status: Acute Assessment & Plan: Continue lovenox. Code(s): Z29.9 - ENCOUNTER FOR PROPHYLACTIC MEASURES, UNSPECIFIED
[2018-11-13] MEDS: Colace 100 MG PO SCH ×2 (10:18→21:47)
[2018-11-13] MEDS: Klor Con 10 MEQ PO SCH (10:18)
[2018-11-13] MEDS: Lasix 40 MG PO SCH (10:18)
[2018-11-13] MEDS: Apresoline 25 MG TABLET PO SCH ×3 (10:18→21:48)
[2018-11-13] MEDS: NORVASC 5 MG PO SCH (10:18)
[2018-11-13] MEDS: xanAX 0.5 MG PO SCH ×2 (10:18→21:47)
[2018-11-13] MEDS: MAG-OX 400 PO SCH (10:18)
[2018-11-13] MEDS: ENOXAPARIN SODIUM SQ SCH (10:19)
[2018-11-13] MEDS: Toprol Xl 50 MG PO SCH ×2 (10:19→21:47)
[2018-11-13] MEDS: ECOTRIN 81 MG PO SCH (10:19)
[2018-11-13] MEDS: ULTRAM 50 MG PO SCH ×4 (10:19→21:47)
[2018-11-13] MEDS: PATIENT OWN MEDICATION PO SCH (10:20)
[2018-11-13] MEDS: TYLENOL EXTRA STRENGTH 500 MG PO PRN (12:20)
[2018-11-14] MEDS: ULTRAM 50 MG PO PRN ×2 (02:35→06:53)
[2018-11-14] MEDS: Vitamin C 500 MG PO SCH ×3 (05:27→21:36)
[2018-11-14] MEDS: Colace 100 MG PO SCH ×2 (10:46→21:35)
[2018-11-14] MEDS: Apresoline 25 MG TABLET PO SCH ×3 (10:47→21:35)
[2018-11-14] MEDS: NORVASC 5 MG PO SCH (10:47)
[2018-11-14] MEDS: ECOTRIN 81 MG PO SCH (10:47)
[2018-11-14] MEDS: MAG-OX 400 PO SCH (10:47)
[2018-11-14] MEDS: xanAX 0.5 MG PO SCH ×2 (10:47→21:36)
[2018-11-14] MEDS: Toprol Xl 50 MG PO SCH ×2 (10:47→21:36)
[2018-11-14] MEDS: ULTRAM 50 MG PO SCH ×4 (10:47→21:36)
[2018-11-14] MEDS: Lasix 40 MG PO SCH (10:47)
[2018-11-14] MEDS: Klor Con 10 MEQ PO SCH (10:47)
[2018-11-14] MEDS: PATIENT OWN MEDICATION PO SCH (10:48)
[2018-11-14] MEDS: ENOXAPARIN SODIUM SQ SCH (10:48)
[2018-11-14] MEDS: VITAMIN D2 PO SCH (13:48)
[2018-11-14] MEDS: TYLENOL EXTRA STRENGTH 500 MG PO PRN (21:36)
[2018-11-15] MEDS: Vitamin C 500 MG PO SCH ×3 (05:45→21:15)
[2018-11-15] MEDS: TYLENOL EXTRA STRENGTH 500 MG PO PRN ×3 (05:48→21:15)
[2018-11-15] MEDS: Klor Con 10 MEQ PO SCH (09:33)
[2018-11-15] MEDS: Apresoline 25 MG TABLET PO SCH ×3 (09:33→21:14)
[2018-11-15] MEDS: PATIENT OWN MEDICATION PO SCH (09:33)
[2018-11-15] MEDS: ENOXAPARIN SODIUM SQ SCH (09:33)
[2018-11-15] MEDS: MAG-OX 400 PO SCH (09:33)
[2018-11-15] MEDS: Colace 100 MG PO SCH ×2 (09:33→21:15)
[2018-11-15] MEDS: Toprol Xl 50 MG PO SCH ×2 (09:33→21:15)
[2018-11-15] MEDS: NORVASC 5 MG PO SCH (09:33)
[2018-11-15] MEDS: ECOTRIN 81 MG PO SCH (09:33)
[2018-11-15] MEDS: xanAX 0.5 MG PO SCH ×2 (09:34→21:15)
[2018-11-15] MEDS: Lasix 40 MG PO SCH (09:34)
[2018-11-15] MEDS: ULTRAM 50 MG PO SCH ×4 (09:39→21:15)
[2018-11-16] MEDS: Cyclobenzaprine 10 MG PO PRN ×2 (01:57→23:33)
[2018-11-16] MEDS: TYLENOL EXTRA STRENGTH 500 MG PO PRN ×3 (03:11→23:33)
[2018-11-16] MEDS: Vitamin C 500 MG PO SCH ×3 (06:47→20:36)
[2018-11-16] MEDS: MOTRIN 400 MG PO PRN (08:21)
[2018-11-16] MEDS: ENOXAPARIN SODIUM SQ SCH (09:08)
[2018-11-16] MEDS: Lasix 40 MG PO SCH (09:08)
[2018-11-16] MEDS: NORVASC 5 MG PO SCH (09:08)
[2018-11-16] MEDS: MAG-OX 400 PO SCH (09:09)
[2018-11-16] MEDS: PATIENT OWN MEDICATION PO SCH (09:09)
[2018-11-16] MEDS: Colace 100 MG PO SCH ×2 (09:09→20:35)
[2018-11-16] MEDS: Toprol Xl 50 MG PO SCH ×2 (09:09→20:35)
[2018-11-16] MEDS: xanAX 0.5 MG PO SCH ×2 (09:09→20:35)
[2018-11-16] MEDS: Apresoline 25 MG TABLET PO SCH ×3 (09:09→20:36)
[2018-11-16] MEDS: ECOTRIN 81 MG PO SCH (09:09)
[2018-11-16] MEDS: Klor Con 10 MEQ PO SCH (09:09)
[2018-11-16] MEDS: ULTRAM 50 MG PO SCH ×4 (09:10→20:32)
[2018-11-16] MEDS: Protonix 40MG Tablet PO SCH (18:03)
[2018-11-17] MEDS: Vitamin C 500 MG PO SCH ×3 (08:10→22:17)
[2018-11-17] MEDS: Cyclobenzaprine 10 MG PO PRN ×2 (08:14→22:18)
[2018-11-17] MEDS: MOTRIN 400 MG PO PRN ×2 (08:14→22:16)
--- NOTE | 2018-11-17 08:58 | PCM.NOTE ---
Date and Time: 11/17/18 0853 Subjective Assessment: Patient reports nausea with tramadol; pain from her back down her left leg to her knee. She is asking how long the pain will last. She is using a crutch now for ambulation as she reports she almost fell with the walker. Discussed with PT over the phone as they write notes once a week on swing bed patients. They report she is moving well despite the pain but her bathroom is small at home. Patient reports still having some trouble wiping after toileting. Patient reports vomiting yesterday and generally feeling down. Reviewed [facility] notes she had CT scan of lumbar spine that read as compression fracture and also retropulsed fragment that reduces spinal canal. Tried to call Dr. Encinas office and had to leave voicemail from him to call back as no one answered. His office number is [phone] and her appointment with him for follow up is not until 12/21/18. His note mentions possible kyphoplasty and patient states he did talk to her about this option but that he told her he didn't think it was a good option for her. His note states she not a canidate for bracing due to large body habitus. She also reports developing a cough since yesterday. Objective Exam General Appearance: no apparent distress, alert Neurologic Exam: alert, cooperative, normal mood/affect Skin Exam: normal color, warm, dry, other (bruising on left ankle) Respiratory Exam: normal breath sounds, lungs clear, No crackles/rales, No rhonchi, No wheezing Cardiovascular Exam: regular rate/rhythm, No murmur, No friction rub, No gallop Gastrointestinal/Abdomen Exam: soft, normal bowel sounds, No tenderness, No distention, No mass Extremity Exam: other (no c/c/e) OBJECTIVE DATA Vital Signs: Vital Signs - 24 hr Temp Pulse Resp BP Pulse Ox 11/17/18 07:30 97.9 F 90 20 146/86 95 11/16/18 19:11 98.0 F 87 18 140/78 94 L 11/16/18 18:30 94 L Pain Assessment - Last Documented Pain Intensity 3 Pain Scale Used 0-10 Pain Scale Intake and Output: Intake & Output 11/15/18 11/16/18 11/17/18 11/18/18 06:59 06:59 06:59 06:59 Intake Total 100 1060 1080 Balance 100 1060 1080 Weight 82 kg Assessment/Plan (1) Compression fx, lumbar spine Current Visit: Yes Status: Chronic Qualifiers: Encounter type: subsequent encounter Fracture healing: with routine healing Assessment & Plan: Call placed to Dr. Sanabria's office to discuss patient and see about sooner follow up. Will start cymbalta. I was going to start 20 mg but that dose is not available here so will start 30 mg. Continue tylenol. (2) Right radial fracture Current Visit: Yes Status: Acute Qualifiers: Encounter type: subsequent encounter Assessment & Plan: Continue splint and follow up planned with ortho. Code(s): S52.91XA - UNSP FRACTURE OF RIGHT FOREARM, INIT FOR CLOS FX (3) Metatarsal fracture Current Visit: Yes Status: Acute Qualifiers: Metatarsal bone: fifth Fracture type: closed Laterality: left Fracture healing: with routine healing Assessment & Plan: Continue boot and follow up with othro. (4) Gait instability Current Visit: Yes Status: Acute Assessment & Plan: Continue PT/OT. Code(s): R26.81 - UNSTEADINESS ON FEET (5) Hypertension Current Visit: Yes Status: Acute Assessment & Plan: Continue home medication. Code(s): I10 - ESSENTIAL (PRIMARY) HYPERTENSION (6) Anxiety Current Visit: Yes Status: Acute Assessment & Plan: Continue home medication. Code(s): F41.9 - ANXIETY DISORDER, UNSPECIFIED (7) DVT prophylaxis Current Visit: Yes Status: Acute Assessment & Plan: on lovenox. Code(s): Z29.9 - ENCOUNTER FOR PROPHYLACTIC MEASURES, UNSPECIFIED
[2018-11-17] MEDS: Klor Con 10 MEQ PO SCH (09:54)
[2018-11-17] MEDS: Cymbalta 30 MG Capsule PO SCH (09:54)
[2018-11-17] MEDS: Lasix 40 MG PO SCH (09:54)
[2018-11-17] MEDS: Protonix 40MG Tablet PO SCH (09:55)
[2018-11-17] MEDS: MAG-OX 400 PO SCH (09:55)
[2018-11-17] MEDS: ECOTRIN 81 MG PO SCH (09:55)
[2018-11-17] MEDS: NORVASC 5 MG PO SCH (09:55)
[2018-11-17] MEDS: Colace 100 MG PO SCH ×2 (09:55→22:17)
[2018-11-17] MEDS: Toprol Xl 50 MG PO SCH ×2 (09:55→22:17)
[2018-11-17] MEDS: Apresoline 25 MG TABLET PO SCH ×3 (09:55→22:16)
[2018-11-17] MEDS: xanAX 0.5 MG PO SCH ×2 (09:55→22:18)
[2018-11-17] MEDS: PATIENT OWN MEDICATION PO SCH (09:56)
[2018-11-17] MEDS: ENOXAPARIN SODIUM SQ SCH (10:04)
[2018-11-17] MEDS: ULTRAM 50 MG PO SCH ×3 (10:18→16:03)
[2018-11-17] MEDS ORDERED: Zofran 4 MG/2 ML VIAL IV PRN (13:46)
[2018-11-17] MEDS: ZOFRAN ODT 4 MG PO PRN ×2 (14:36→19:39)
[2018-11-18] MEDS: ULTRAM 50 MG PO SCH ×5 (01:47→21:46)
[2018-11-18] MEDS: Vitamin C 500 MG PO SCH ×3 (06:52→21:45)
[2018-11-18] MEDS: MOTRIN 400 MG PO PRN ×2 (07:08→21:45)
[2018-11-18] MEDS: ENOXAPARIN SODIUM SQ SCH (09:20)
[2018-11-18] MEDS: ZOFRAN ODT 4 MG PO PRN ×3 (09:20→21:45)
[2018-11-18] MEDS: Cymbalta 30 MG Capsule PO SCH (09:21)
[2018-11-18] MEDS: Apresoline 25 MG TABLET PO SCH ×3 (09:21→21:44)
[2018-11-18] MEDS: Protonix 40MG Tablet PO SCH (09:21)
[2018-11-18] MEDS: NORVASC 5 MG PO SCH (09:21)
[2018-11-18] MEDS: ECOTRIN 81 MG PO SCH (09:21)
[2018-11-18] MEDS: MAG-OX 400 PO SCH (09:21)
[2018-11-18] MEDS: xanAX 0.5 MG PO SCH ×2 (09:21→21:45)
[2018-11-18] MEDS: Klor Con 10 MEQ PO SCH (09:21)
[2018-11-18] MEDS: Toprol Xl 50 MG PO SCH ×2 (09:22→21:44)
[2018-11-18] MEDS: Colace 100 MG PO SCH ×2 (09:22→21:44)
[2018-11-18] MEDS: PATIENT OWN MEDICATION PO SCH (09:22)
[2018-11-18] MEDS: Lasix 40 MG PO SCH (09:22)
[2018-11-19] MEDS: Vitamin C 500 MG PO SCH ×3 (06:25→21:28)
[2018-11-19] MEDS: ZOFRAN ODT 4 MG PO PRN ×2 (07:53→14:51)
[2018-11-19] MEDS: MOTRIN 400 MG PO PRN ×3 (07:55→21:34)
[2018-11-19] MEDS: Cymbalta 30 MG Capsule PO SCH (09:20)
[2018-11-19] MEDS: Colace 100 MG PO SCH ×2 (09:20→21:29)
[2018-11-19] MEDS: Protonix 40MG Tablet PO SCH (09:20)
[2018-11-19] MEDS: Toprol Xl 50 MG PO SCH ×2 (09:20→21:28)
[2018-11-19] MEDS: Klor Con 10 MEQ PO SCH (09:20)
[2018-11-19] MEDS: xanAX 0.5 MG PO SCH ×2 (09:20→21:28)
[2018-11-19] MEDS: NORVASC 5 MG PO SCH (09:20)
[2018-11-19] MEDS: MAG-OX 400 PO SCH (09:20)
[2018-11-19] MEDS: Apresoline 25 MG TABLET PO SCH ×3 (09:20→21:28)
[2018-11-19] MEDS: Lasix 40 MG PO SCH (09:20)
[2018-11-19] MEDS: ENOXAPARIN SODIUM SQ SCH (09:21)
[2018-11-19] MEDS: ECOTRIN 81 MG PO SCH (09:28)
[2018-11-19] MEDS: PATIENT OWN MEDICATION PO SCH (09:29)
[2018-11-19] MEDS: ULTRAM 50 MG PO SCH ×4 (09:31→21:29)
[2018-11-19] MEDS: Cyclobenzaprine 10 MG PO PRN (21:34)
[2018-11-20] MEDS: Vitamin C 500 MG PO SCH ×3 (06:16→21:39)
[2018-11-20] MEDS: MOTRIN 400 MG PO PRN ×3 (06:19→21:39)
[2018-11-20] MEDS: ZOFRAN ODT 4 MG PO PRN ×3 (06:19→21:41)
--- NOTE | 2018-11-20 08:59 | PCM.NOTE ---
Date and Time: 11/20/18 0855 Subjective Assessment: PT note from Tuesday notes progress. She feels like the cymbalta is helping.She reports she is also taking ibuprofen and zofran and this helps with the pain. She continues to have pain from her left lower back down the lateral aspect of her leg to her knee which is worse first thing in the morning. She reports no pain her now as she just had pain medication. I left a message with Dr. Sanabria' s office Tuesday and Tuesday to see if he could see her sooner than 12/21/18 for follow up as she continues to have back pain. Objective Exam General Appearance: no apparent distress, other (right arm in splint; left foot/ ankle with mild bruising) Neurologic Exam: alert, cooperative Skin Exam: normal color, warm, dry, No rash Respiratory Exam: normal breath sounds, lungs clear Cardiovascular Exam: regular rate/rhythm, normal heart sounds, No murmur, No friction rub, No gallop Gastrointestinal/Abdomen Exam: soft, normal bowel sounds, No tenderness, No distention, No mass Extremity Exam: other (no c/c/e; neg straight leg raise on left) OBJECTIVE DATA Vital Signs: Vital Signs - 24 hr Temp Pulse Resp BP Pulse Ox 11/20/18 07:10 98.1 F 87 18 126/78 92 L 11/19/18 19:00 97.9 F 85 18 121/73 93 L Pain Assessment - Last Documented Pain Intensity 2 Pain Scale Used [facility] Intake and Output: Intake & Output 11/18/18 11/19/18 11/20/18 11/21/18 06:59 06:59 06:59 06:59 Intake Total 720 720 360 Balance 720 720 360 Assessment/Plan (1) Compression fx, lumbar spine Current Visit: Yes Status: Chronic Qualifiers: Encounter type: subsequent encounter Fracture healing: with routine healing Assessment & Plan: Continue cymbalta. Will see if her appointment with Dr. Encinas can be moved to a closer time. (2) Right radial fracture Current Visit: Yes Status: Acute Qualifiers: Encounter type: subsequent encounter Assessment & Plan: Following up with ortho tomorrow. Code(s): S52.91XA - UNSP FRACTURE OF RIGHT FOREARM, INIT FOR CLOS FX (3) Metatarsal fracture Current Visit: Yes Status: Acute Qualifiers: Metatarsal bone: fifth Fracture type: closed Laterality: left Fracture healing: with routine healing Assessment & Plan: Following up with ortho tomorrow. (4) Gait instability Current Visit: Yes Status: Acute Assessment & Plan: Continue PT/OT. Code(s): R26.81 - UNSTEADINESS ON FEET (5) Hypertension Current Visit: Yes Status: Acute Assessment & Plan: Well controlled. Code(s): I10 - ESSENTIAL (PRIMARY) HYPERTENSION (6) Anxiety Current Visit: Yes Status: Acute Assessment & Plan: Well controlled. Code(s): F41.9 - ANXIETY DISORDER, UNSPECIFIED (7) DVT prophylaxis Current Visit: Yes Status: Acute Assessment & Plan: On lovenox. Code(s): Z29.9 - ENCOUNTER FOR PROPHYLACTIC MEASURES, UNSPECIFIED
--- NOTE | 2018-11-20 10:07 | XRAY ---
Indication: Fracture. Comparison: None 3 views of the right wrist demonstrates distal radius fixation plate/screws fixating corner fracture in good apposition/alignment without obvious healing/bridging. Elsewhere mild osteopenia, advanced 1st metacarpal multangular scaphoid degenerative changes, and anterior splint.
--- NOTE | 2018-11-20 10:08 | XRAY ---
Indication: Fracture. Comparison: None 2 views of the right forearm demonstrates distal radius fixation plate/screws fixating corner fracture in good apposition/alignment without obvious healing/bridging. Elsewhere mild osteopenia, advanced 1st metacarpal multangular degenerative changes, and anterior splint material.
--- NOTE | 2018-11-20 10:09 | XRAY ---
Indication: 5th metatarsal fracture. Comparison: None 3 views of the right foot demonstrates nondisplaced 5th metatarsal proximal shaft fracture without obvious healing/bridging. Elsewhere mild osteopenia, moderate ankle degenerative arthropathy, tiny cuboid accessory ossicle, anterior ankle soft tissue swelling, and Achilles tendon/plantar aponeurosis calcifications presumed from old injury/inflammation.
[2018-11-20] MEDS: Cymbalta 30 MG Capsule PO SCH (10:14)
[2018-11-20] MEDS: Klor Con 10 MEQ PO SCH (10:37)
[2018-11-20] MEDS: xanAX 0.5 MG PO SCH ×2 (10:37→21:40)
[2018-11-20] MEDS: ECOTRIN 81 MG PO SCH (10:38)
[2018-11-20] MEDS: NORVASC 5 MG PO SCH (10:39)
[2018-11-20] MEDS: MAG-OX 400 PO SCH (10:39)
[2018-11-20] MEDS: Lasix 40 MG PO SCH (10:39)
[2018-11-20] MEDS: Protonix 40MG Tablet PO SCH (10:39)
[2018-11-20] MEDS: Apresoline 25 MG TABLET PO SCH ×3 (10:40→21:38)
[2018-11-20] MEDS: Colace 100 MG PO SCH ×2 (10:40→21:38)
[2018-11-20] MEDS: Toprol Xl 50 MG PO SCH ×2 (10:40→21:40)
[2018-11-20] MEDS: ENOXAPARIN SODIUM SQ SCH (10:41)
[2018-11-20] MEDS: PATIENT OWN MEDICATION PO SCH (10:42)
--- NOTE | 2018-11-20 11:18 | XRAY ---
Indication: Pain following fall 2 weeks ago. Comparison: None 5 views of the lumbar spine demonstrates 5 lumbar vertebral segments with mild levoscoliosis centered at L3, subacute to chronic appearing L4 superior endplate fracture with 25% height loss, mild/moderate L3-S1 degenerative spondylosis, and incompletely visualized intrathoracic stomach.
[2018-11-21] MEDS: Vitamin C 500 MG PO SCH ×3 (04:43→21:28)
[2018-11-21 05:09] LABS: BLOOD UREA NITROGEN 15 mg/dL (7-17); CHLORIDE 97 mmol/L (98-107); Calcium 9.1 mg/dL (8.4-10.2); Carbon Dioxide 33 mmol/L (22-30); Creatinine 1 0.78 mg/dL (0.52-1.04); Glucose 121 mg/dL (74-106); Potassium 3.2 mmol/L (3.5-5.1); SODIUM 139 mmol/L (137-145)
[2018-11-21] MEDS: ZOFRAN ODT 4 MG PO PRN (05:52)
[2018-11-21] MEDS: ULTRAM 50 MG PO PRN ×2 (05:52→21:26)
[2018-11-21] MEDS: TYLENOL EXTRA STRENGTH 500 MG PO PRN ×2 (08:24→14:55)
[2018-11-21] MEDS ORDERED: Klor Con 10 MEQ PO ONE (08:27)
[2018-11-21] MEDS: Apresoline 25 MG TABLET PO SCH ×3 (09:07→21:28)
[2018-11-21] MEDS: Klor Con 10 MEQ PO SCH (09:08)
[2018-11-21] MEDS: Cymbalta 30 MG Capsule PO SCH (09:08)
[2018-11-21] MEDS: Lasix 40 MG PO SCH (09:08)
[2018-11-21] MEDS: Colace 100 MG PO SCH ×2 (09:08→21:27)
[2018-11-21] MEDS: ECOTRIN 81 MG PO SCH (09:08)
[2018-11-21] MEDS: MAG-OX 400 PO SCH (09:08)
[2018-11-21] MEDS: Toprol Xl 50 MG PO SCH ×2 (09:09→21:26)
[2018-11-21] MEDS: Protonix 40MG Tablet PO SCH (09:09)
[2018-11-21] MEDS: VITAMIN D2 PO SCH (09:09)
[2018-11-21] MEDS: NORVASC 5 MG PO SCH (09:09)
[2018-11-21] MEDS: xanAX 0.5 MG PO SCH ×2 (09:10→21:28)
[2018-11-21] MEDS: ENOXAPARIN SODIUM SQ SCH (09:13)
[2018-11-21] MEDS: PATIENT OWN MEDICATION PO SCH (09:13)
[2018-11-21] MEDS: MOTRIN 400 MG PO PRN (19:34)
[2018-11-21] MEDS: SENOKOT 8.6 MG PO PRN (21:27)
[2018-11-22] MEDS: MOTRIN 400 MG PO PRN (06:03)
[2018-11-22] MEDS: Vitamin C 500 MG PO SCH ×3 (06:03→21:38)
[2018-11-22] MEDS: Miralax Powder 17GM PACKET PO SCH (09:36)
[2018-11-22] MEDS: ENOXAPARIN SODIUM SQ SCH (09:36)
[2018-11-22] MEDS: Apresoline 25 MG TABLET PO SCH ×3 (09:37→21:38)
[2018-11-22] MEDS: MAG-OX 400 PO SCH (09:37)
[2018-11-22] MEDS: Protonix 40MG Tablet PO SCH (09:37)
[2018-11-22] MEDS: Lasix 40 MG PO SCH (09:37)
[2018-11-22] MEDS: xanAX 0.5 MG PO SCH ×2 (09:37→21:38)
[2018-11-22] MEDS: Cymbalta 30 MG Capsule PO SCH (09:37)
[2018-11-22] MEDS: Colace 100 MG PO SCH ×2 (09:37→21:38)
[2018-11-22] MEDS: Klor Con 10 MEQ PO SCH (09:37)
[2018-11-22] MEDS: ECOTRIN 81 MG PO SCH (09:37)
[2018-11-22] MEDS: NORVASC 5 MG PO SCH (09:37)
[2018-11-22] MEDS: Toprol Xl 50 MG PO SCH ×2 (09:37→21:38)
[2018-11-22] MEDS: PATIENT OWN MEDICATION PO SCH (09:38)
[2018-11-22] MEDS: ZOFRAN ODT 4 MG PO PRN ×3 (10:29→21:39)
[2018-11-22] MEDS: ULTRAM 50 MG PO PRN ×3 (10:30→21:39)
[2018-11-22] MEDS: TYLENOL EXTRA STRENGTH 500 MG PO PRN (12:52)
[2018-11-23] MEDS: Vitamin C 500 MG PO SCH ×3 (05:48→21:59)
[2018-11-23] MEDS: ZOFRAN ODT 4 MG PO PRN ×4 (05:48→22:01)
[2018-11-23] MEDS: ULTRAM 50 MG PO PRN ×4 (05:49→22:01)
[2018-11-23] MEDS: Cymbalta 30 MG Capsule PO SCH (07:51)
[2018-11-23] MEDS: MAG-OX 400 PO SCH (07:51)
[2018-11-23] MEDS: NORVASC 5 MG PO SCH (07:51)
[2018-11-23] MEDS: Apresoline 25 MG TABLET PO SCH ×3 (07:51→21:58)
[2018-11-23] MEDS: Klor Con 10 MEQ PO SCH (07:52)
[2018-11-23] MEDS: xanAX 0.5 MG PO SCH ×2 (07:52→21:58)
[2018-11-23] MEDS: Lasix 40 MG PO SCH (07:52)
[2018-11-23] MEDS: Toprol Xl 50 MG PO SCH ×2 (07:52→21:59)
[2018-11-23] MEDS: Colace 100 MG PO SCH ×2 (07:52→21:58)
[2018-11-23] MEDS: ECOTRIN 81 MG PO SCH (07:52)
[2018-11-23] MEDS: ENOXAPARIN SODIUM SQ SCH (07:52)
[2018-11-23] MEDS: Protonix 40MG Tablet PO SCH (07:52)
[2018-11-23] MEDS: Miralax Powder 17GM PACKET PO SCH (07:53)
[2018-11-23] MEDS: PATIENT OWN MEDICATION PO SCH (07:55)
[2018-11-23] MEDS: Cyclobenzaprine 10 MG PO PRN (15:36)
[2018-11-24] MEDS ORDERED: Dulcolax 10 MG SUPP PR PRN (08:02)
[2018-11-24] MEDS ORDERED: Dulcolax 10 MG SUPP PR ONE (08:02)
--- NOTE | 2018-11-24 08:08 | PCM.NOTE ---
Date and Time: 11/24/18 0802 Subjective Assessment: Patient reports continued pain in her left hip that goes down her leg to her calf. She saw the Neurosurgeon yesterday and he has ordered a MRI of her lumbar spine today and told her that she will need surgery to help with the pain. Therapy note says patient is not wanting to go to SNF. She is not making stools well and feels constipated despite being on miralax and docusate. She reports a poor appetite. - Review of Systems Constitutional: No Symptoms Respiratory: No Symptoms Cardiac: No Symptoms Abdominal/Gastrointestinal: No Symptoms Genitourinary Symptoms: No Symptoms Musculoskeletal: Back Pain, Other (left hip pain) Skin: No Symptoms Objective Exam General Appearance: no apparent distress, alert, obese, other (right wrist in splint; left ankle with minimal bruising.) Neurologic Exam: alert, cooperative, normal mood/affect Skin Exam: other Respiratory Exam: normal breath sounds, lungs clear, No crackles/rales, No rhonchi, No wheezing Cardiovascular Exam: regular rate/rhythm, normal heart sounds, No murmur, No friction rub, No gallop Gastrointestinal/Abdomen Exam: soft, normal bowel sounds, No tenderness, No distention, No mass Extremity Exam: other (no c/c/e) OBJECTIVE DATA Vital Signs: Vital Signs - 24 hr Temp Pulse Resp BP Pulse Ox 11/23/18 19:00 98.3 F 97 H 19 128/75 92 L Pain Assessment - Last Documented Pain Intensity 5 Pain Scale Used [facility] Intake and Output: Intake & Output 11/22/18 11/23/18 11/24/18 11/25/18 06:59 06:59 06:59 06:59 Intake Total 860 480 480 Output Total 600 Balance 860 -120 480 Weight 82.6 kg Radiology Exams: Radiology Procedures Category Date Time Status MRI L-SPINE WITHOUT CONTRAST [MRI] Routine Exams 11/24/18 15:35 Ordered Multi-Disciplinary Progress Notes: Multi-Disciplinary Progress Notes 11/23/18 17:38 Physical Therapy Note by Verna Paul P.T. PLACED ON HOLD BY NEURO CONSULT TODAY. AWAITING RESULT OF L-SPINE MRI WHICH IS TO OCCCUR 10/11 AM. WILL FOLLOW M.D. DIRECTION AFTER MRI RESULT OBTAINED. VERNA PAUL PT Initialized on 11/23/18 17:38 - END OF NOTE 11/23/18 13:21 Physical Therapy Note by Junior Ramirez PT attempted. Pt was getting ready to leave for appt in [place]. Initialized on 11/23/18 13:21 - END OF NOTE Assessment/Plan (1) Compression fx, lumbar spine Current Visit: Yes Status: Chronic Qualifiers: Encounter type: subsequent encounter Fracture healing: with routine healing Assessment & Plan: lumbar spine MRI planned today per Neurosurgeon. He has held PT while awaiting these results. (2) Right radial fracture Current Visit: Yes Status: Acute Qualifiers: Encounter type: subsequent encounter Assessment & Plan: Continue splint and follow up as scheduled with ortho. Code(s): S52.91XA - UNSP FRACTURE OF RIGHT FOREARM, INIT FOR CLOS FX (3) Metatarsal fracture Current Visit: Yes Status: Acute Qualifiers: Metatarsal bone: fifth Fracture type: closed Laterality: left Fracture healing: with routine healing Assessment & Plan: Continue boot and follow up with ortho. (4) Gait instability Current Visit: Yes Status: Acute Assessment & Plan: Patient is having trouble with stability due to pain in back and left hip and back to using walker per PT notes. She could not use the crutch safely. Code(s): R26.81 - UNSTEADINESS ON FEET (5) Hypertension Current Visit: Yes Status: Acute Assessment & Plan: Well controlled on her home medications. Code(s): I10 - ESSENTIAL (PRIMARY) HYPERTENSION (6) Anxiety Current Visit: Yes Status: Acute Assessment & Plan: Well controlled. Code(s): F41.9 - ANXIETY DISORDER, UNSPECIFIED (7) DVT prophylaxis Current Visit: Yes Status: Acute Assessment & Plan: On lovenox. Code(s): Z29.9 - ENCOUNTER FOR PROPHYLACTIC MEASURES, UNSPECIFIED
--- NOTE | 2018-11-24 10:02 | XRAY ---
Indication: Low back pain radiating left leg. Recent fall. L4 fracture on lumbar radiograph November 20, 2018. Sagittal and axial MRI lumbar spine performed using T1 and T2 weighted sequences. Comparison: None Sagittal images demonstrates normal lumbar lordosis with minimal levoscoliosis centered at L4. There is superior endplate fracture of L4 with approximately 25% height loss. It demonstrates low signal on T1 and intermediate to high signal on T2 favoring acute to subacute fracture. Fracture minimally effaces the thecal sac. Mild L2-S1 degenerative disc desiccation signal with L4-L5 disc space loss. L4-L5 opposing endplate and lesser degree L5-S1 degenerative discogenic signal changes, Modic type II. L1-L3 vertebral hemangiomas. Conus medullaris terminates at the inferior L1 level. Incidental 1.4 cm left S3 perineural cyst. Sagittal images through the T12-L3 levels negative for disc herniation or spinal canal stenosis. Axial images at the L3-L4 level demonstrates minimal annular disc bulge minimally effacing the thecal sac and producing minimal bilateral foraminal narrowing. Also moderate bilateral degenerative facet and ligamentum flavum hypertrophy further effaces the thecal sac. Mean AP thecal sac diameter is 9 mm. At the L4-L5 level, there is left foraminal stenosis due to broad-based disc osteophyte complex. No central disc herniation. Moderate bilateral degenerative facet and ligamentum flavum hypertrophy narrows the spinal canal. Mean AP thecal sac diameter is 10 mm. At the L5-S1 level, there is bilateral foraminal stenosis, right greater than left due to broad-based disc osteophyte complex. Slight impingement of the exiting right L5 nerve root. No central disc herniation or canal stenosis. Moderate bilateral degenerative facet hypertrophy. Visualized soft tissues demonstrates partially visualized 2 cm left pelvic cystic mass. Impression: 1. Acute to subacute appearing L4 superior endplate fracture with approximately 25% height loss. No spinal canal or foraminal stenosis. 2. L3-S1 degenerative disc disease detailed level by level. 3. Incidental L1-L3 vertebral hemangiomas and left S3 perineural cyst. 4. Incompletely visualized 2 cm left pelvis cystic mass. Query ovary cyst. Pelvic sonogram may yield further information.
[2018-11-24] MEDS: ENOXAPARIN SODIUM SQ SCH (10:03)
[2018-11-24] MEDS: Colace 100 MG PO SCH ×2 (10:05→21:20)
[2018-11-24] MEDS: Vitamin C 500 MG PO SCH ×3 (10:05→21:20)
[2018-11-24] MEDS: MAG-OX 400 PO SCH (10:05)
[2018-11-24] MEDS: ECOTRIN 81 MG PO SCH (10:05)
[2018-11-24] MEDS: xanAX 0.5 MG PO SCH ×2 (10:05→21:20)
[2018-11-24] MEDS: Toprol Xl 50 MG PO SCH ×2 (10:05→21:20)
[2018-11-24] MEDS: Miralax Powder 17GM PACKET PO SCH ×2 (10:05→21:20)
[2018-11-24] MEDS: Klor Con 10 MEQ PO SCH (10:05)
[2018-11-24] MEDS: Cymbalta 30 MG Capsule PO SCH (10:05)
[2018-11-24] MEDS: NORVASC 5 MG PO SCH (10:06)
[2018-11-24] MEDS: Lasix 40 MG PO SCH (10:06)
[2018-11-24] MEDS: Apresoline 25 MG TABLET PO SCH ×3 (10:06→21:20)
[2018-11-24] MEDS: Protonix 40MG Tablet PO SCH (10:11)
[2018-11-24] MEDS: PATIENT OWN MEDICATION PO SCH (10:11)
[2018-11-24] MEDS: TYLENOL EXTRA STRENGTH 500 MG PO PRN (10:16)
[2018-11-24] MEDS: ZOFRAN ODT 4 MG PO PRN ×2 (13:35→21:20)
[2018-11-24] MEDS: ULTRAM 50 MG PO PRN ×2 (13:36→21:20)
[2018-11-25] MEDS: TYLENOL EXTRA STRENGTH 500 MG PO PRN ×2 (00:23→22:18)
[2018-11-25] MEDS: Vitamin C 500 MG PO SCH ×3 (06:55→22:17)
[2018-11-25] MEDS: ULTRAM 50 MG PO PRN ×3 (06:55→17:50)
[2018-11-25] MEDS: ZOFRAN ODT 4 MG PO PRN ×3 (06:55→17:50)
[2018-11-25] MEDS: Cymbalta 30 MG Capsule PO SCH (09:23)
[2018-11-25] MEDS: ECOTRIN 81 MG PO SCH (09:23)
[2018-11-25] MEDS: xanAX 0.5 MG PO SCH ×2 (09:23→22:18)
[2018-11-25] MEDS: Apresoline 25 MG TABLET PO SCH ×3 (09:23→22:17)
[2018-11-25] MEDS: Protonix 40MG Tablet PO SCH (09:23)
[2018-11-25] MEDS: Klor Con 10 MEQ PO SCH (09:23)
[2018-11-25] MEDS: MAG-OX 400 PO SCH (09:23)
[2018-11-25] MEDS: Toprol Xl 50 MG PO SCH ×2 (09:23→22:17)
[2018-11-25] MEDS: Lasix 40 MG PO SCH (09:23)
[2018-11-25] MEDS: Miralax Powder 17GM PACKET PO SCH ×2 (09:23→22:20)
[2018-11-25] MEDS: Colace 100 MG PO SCH ×2 (09:23→22:17)
[2018-11-25] MEDS: PATIENT OWN MEDICATION PO SCH (09:24)
[2018-11-25] MEDS: NORVASC 5 MG PO SCH (09:24)
[2018-11-25] MEDS: ENOXAPARIN SODIUM SQ SCH (09:24)
[2018-11-26] MEDS: Vitamin C 500 MG PO SCH ×3 (05:12→22:33)
[2018-11-26] MEDS: ULTRAM 50 MG PO PRN ×3 (05:12→18:21)
[2018-11-26] MEDS: ZOFRAN ODT 4 MG PO PRN ×3 (05:13→18:21)
[2018-11-26] MEDS: ENOXAPARIN SODIUM SQ SCH (10:22)
[2018-11-26] MEDS: ECOTRIN 81 MG PO SCH (10:23)
[2018-11-26] MEDS: Apresoline 25 MG TABLET PO SCH ×3 (10:23→22:32)
[2018-11-26] MEDS: Lasix 40 MG PO SCH (10:23)
[2018-11-26] MEDS: Toprol Xl 50 MG PO SCH ×2 (10:23→22:33)
[2018-11-26] MEDS: xanAX 0.5 MG PO SCH ×2 (10:23→22:33)
[2018-11-26] MEDS: Cymbalta 30 MG Capsule PO SCH (10:23)
[2018-11-26] MEDS: Protonix 40MG Tablet PO SCH (10:23)
[2018-11-26] MEDS: NORVASC 5 MG PO SCH (10:23)
[2018-11-26] MEDS: Klor Con 10 MEQ PO SCH (10:23)
[2018-11-26] MEDS: MAG-OX 400 PO SCH (10:24)
[2018-11-26] MEDS: Miralax Powder 17GM PACKET PO SCH ×2 (10:24→22:33)
[2018-11-26] MEDS: Colace 100 MG PO SCH ×2 (10:24→22:32)
[2018-11-26] MEDS: PATIENT OWN MEDICATION PO SCH (11:12)
[2018-11-26] MEDS: TYLENOL EXTRA STRENGTH 500 MG PO PRN ×2 (13:51→22:33)
[2018-11-27] MEDS: Vitamin C 500 MG PO SCH ×3 (06:28→21:45)
[2018-11-27] MEDS: ZOFRAN ODT 4 MG PO PRN ×2 (06:28→12:03)
[2018-11-27] MEDS: ULTRAM 50 MG PO PRN ×2 (06:28→12:03)
[2018-11-27] MEDS: Cymbalta 30 MG Capsule PO SCH (09:30)
[2018-11-27] MEDS: MAG-OX 400 PO SCH (09:30)
[2018-11-27] MEDS: Klor Con 10 MEQ PO SCH (09:30)
[2018-11-27] MEDS: xanAX 0.5 MG PO SCH ×2 (09:30→21:45)
[2018-11-27] MEDS: Toprol Xl 50 MG PO SCH ×2 (09:30→21:45)
[2018-11-27] MEDS: NORVASC 5 MG PO SCH (09:30)
[2018-11-27] MEDS: Protonix 40MG Tablet PO SCH (09:30)
[2018-11-27] MEDS: ECOTRIN 81 MG PO SCH (09:30)
[2018-11-27] MEDS: Colace 100 MG PO SCH ×2 (09:30→21:45)
[2018-11-27] MEDS: Apresoline 25 MG TABLET PO SCH ×3 (09:31→21:45)
[2018-11-27] MEDS: Lasix 40 MG PO SCH (09:31)
[2018-11-27] MEDS: PATIENT OWN MEDICATION PO SCH (09:32)
[2018-11-27] MEDS: Miralax Powder 17GM PACKET PO SCH ×2 (09:32→21:45)
[2018-11-27] MEDS: ENOXAPARIN SODIUM SQ SCH (09:39)
[2018-11-27] MEDS: Cyclobenzaprine 10 MG PO PRN (15:46)
[2018-11-28] MEDS: Vitamin C 500 MG PO SCH (06:08)
[2018-11-28 07:40] VITALS: BP 149/90; PULSE 90; O2SAT 93
[2018-11-28] MEDS: ZOFRAN ODT 4 MG PO PRN ×2 (08:16→12:28)
[2018-11-28] MEDS: ULTRAM 50 MG PO PRN ×2 (08:19→12:28)
[2018-11-28] MEDS: xanAX 0.5 MG PO SCH (09:08)
[2018-11-28] MEDS: Protonix 40MG Tablet PO SCH (09:08)
[2018-11-28] MEDS: Toprol Xl 50 MG PO SCH (09:08)
[2018-11-28] MEDS: NORVASC 5 MG PO SCH (09:08)
[2018-11-28] MEDS: MAG-OX 400 PO SCH (09:08)
[2018-11-28] MEDS: Cymbalta 30 MG Capsule PO SCH (09:08)
[2018-11-28] MEDS: Apresoline 25 MG TABLET PO SCH (09:09)
[2018-11-28] MEDS: ECOTRIN 81 MG PO SCH (09:09)
[2018-11-28] MEDS: Klor Con 10 MEQ PO SCH (09:09)
[2018-11-28] MEDS: Colace 100 MG PO SCH (09:09)
[2018-11-28] MEDS: ENOXAPARIN SODIUM SQ SCH (09:09)
[2018-11-28] MEDS: PATIENT OWN MEDICATION PO SCH (09:10)
[2018-11-28] MEDS: VITAMIN D2 PO SCH (09:11)
[2018-11-28] MEDS: Miralax Powder 17GM PACKET PO SCH (09:17)
[2018-11-28] MEDS: Lasix 40 MG PO SCH (09:21)
== END 2018-11-28 14:30 | disposition home health service (06) | DRG 560 ==
LOC: MED SURG 15:44
PROVIDERS: ADMIT Internal Medicine; ATTEND Internal Medicine
DX: S52.91XD Unspecified fracture of right forearm, subsequent encounter for closed fracture with routine healing (principal); M48.56XA Collapsed vertebra, not elsewhere classified, lumbar region, initial encounter for fracture; S92.352D Displaced fracture of fifth metatarsal bone, left foot, subsequent encounter for fracture with routine healing; R26.9 Unspecified abnormalities of gait and mobility; I10 Essential (primary) hypertension; F41.9 Anxiety disorder, unspecified; Z85.3 Personal history of malignant neoplasm of breast; Z79.899 Other long term (current) drug therapy
CPT/HCPCS: 36415; 72110; 72148; 73090; 73110; 73630; 80048; 94760; J1650; L3908; Q0162; 97110-GP; A9270-GY

== ENCOUNTER 2020-03-01 16:50 | Inpatient (IN) | payer MEDICARE, OTHER ==
[2020-03-01 17:39] LABS: Absolute Neutrophil Ct (ANC) 2.89 (1.4-6.9); BASOPHIL % 0.6 % (0.0-0.4); Basophil (Absolute #) 0.03 (0-0.4); Eosinophil % 0.4 % (0.00-5.0); Eosinophil (Absolute #) 0.02 (0-0.5); Hematocrit 43.2 % (35-47); Hemoglobin 13.6 gm/dl (12.0-16.0); Lymphocyte (Absolute #) 1.19 (1.0-4.6); Lymphocytes % 25.2 % (24.0-44.0); Mean Cell Volume 95.8 fl (78-100); Mean Corpuscular Hemoglobin 30.2 pg (26-32); Mean Corpuscular Hgb Concent. 31.5 g/dl (32-36); Mean Platelet Volume 10.8 fl (7.5-11.0); Monocyte (Absolute #) 0.59 (0.0-1.3); Monocytes % 12.5 % (0.0-12.0); Neutrophil % 61.3 % (36.0-66.0); Platelet Count 221 K/mm3 (150-450); Red Blood Count 4.51 M/mm3 (4.1-5.4); Red Cell Distribution Width 13.7 % (11.5-14.0); White Blood Count 4.7 K/mm3 (4.0-10.5)
[2020-03-01 17:42] LABS: Appearance CLEAR (CLEAR); Bilirubin NEGATIVE (NEGATIVE); Blood NEGATIVE Ery/ul (0-5); Glucose NEGATIVE (NEGATIVE); Hyaline Casts 0-2 /LPF (0-2); Ketones NEGATIVE (NEGATIVE); Leukocyte Esterase NEGATIVE (NEGATIVE); Nitrite NEGATIVE (NEGATIVE); Protein,Urine Dip NEGATIVE (Negative); Specific Gravity 1.006 (1.005-1.025); Urobilinogen NEGATIVE mg/dL (0-1); WBC 0-2 /HPF (0-5)
[2020-03-01 17:42] LABS: ALBUMIN 4.2 g/dL (3.5-5.0); ANION GAP 12.7 MEQ/L (5-15); BILIRUBIN,TOTAL 0.4 mg/dL (0.2-1.3); Calcium 9.6 mg/dL (8.4-10.2); Creatinine 1 1.05 mg/dL (0.52-1.04); EST GLOMERULAR FILTRATION RATE 54.6 ML/MIN; Potassium 3.4 mmol/L (3.5-5.1); Total Protein 7.3 g/dL (6.3-8.2)
[2020-03-01] MEDS ORDERED: ROCEPHIN 1 Gm-D5w 50 ml Bag** 1 G/50 ML IVPB IV STA (17:48)
[2020-03-01] MEDS ORDERED: Zithromax 500 MG/ 250 ML NaCl Premix 500 MG/250 ML IVPB IV STA (17:48)
--- NOTE | 2020-03-01 17:52 | ERPHSYRPT ---
- History of Present Illness Source: patient Exam Limitations: no limitations Patient Subjective Stated Complaint: fever Triage Nursing Assessment: Patient ambulated back to ED and transferred self to bed. Patient A+O X 3. Patient's skin pink, warm and dry. Patient complains of fever as high as 99.9, occasional SOB, cough, weakness, N/V for one week. Patient was COVID tested on Tuesday which was negative. Lungs clear a/p eliud. Timing/Duration: week(s) (1), gradual onset, worse Cough Quality/Degree: mild, dry cough Modifying Factors: Worsens With: coughing Associated Symptoms: fever, chills, chest pain/soreness, cough, muscle aches, nasal congestion, shortness of breath Hx Tetanus, Diphtheria Vaccination/Date Given: No Hx Influenza Vaccination/Date Given: Yes Hx Pneumococcal Vaccination/Date Given: Yes Immunizations Up to Date: Yes <DARRYL MARES - Last Filed: 03/01/20 18:16> <PETR RODNEY - Last Filed: 03/01/20 20:45> - History of Present Illness Time Seen by Provider: 03/01/20 16:56 Physician History: 74 years old female with multiple medical problems presented in the ER with 1 week history of off and on subjective fever chills with nonproductive cough with progressive worsening. She has been taking [id number] pain medication for symptomatic relief. She was tested negative for COVID-19 almost a week ago. Patient reports she started to feel better until yesterday and is getting worse today. She is feeling weak tired fatigued and lethargic with no energy and gets short of breath with activity. She denies any known sick contact. She also has nausea but no abdominal pain vomiting or diarrhea reported. (DARRYL MARES) Allergies/Adverse Reactions: codeine [Codeine] Allergy (Severe, Verified 03/01/20 17:01) Nausea morphine Allergy (Intermediate, Verified 03/01/20 17:01) Vomiting olmesartan medoxomil [From Benicar] Allergy (Verified 03/01/20 17:01) Androgenic Anabolic Steroid Adverse Reaction (Verified 03/01/20 17:01) Home Medications: Acetaminophen 325 mg [Tylenol 325 mg] 650 mg PO Q8H 11/07/18 [History] Acetaminophen [Tylenol Extra Strength] 1,000 mg PO Q8H PRN 11/07/18 [History] Alprazolam 0.25 mg [xanAX 0.25 MG] 0.5 mg PO BID 11/07/18 [History] Amlodipine Besylate 5 mg [Norvasc 5 mg] 5 mg PO DAILY 11/07/18 [History] Anastrozole [Arimidex] 1 mg PO DAILY 11/07/18 [History] Ascorbic Acid 500 mg [Vitamin C 500 MG] 500 mg PO Q8H 11/07/18 [History] Aspirin EC 81 mg [Ecotrin 81 mg] 81 mg PO DAILY 11/07/18 [History] Cyclobenzaprine HCl 10 mg [Cyclobenzaprine 10 MG] 5 mg PO BID PRN 11/07/18 [History] Dimethicone [Monistat Soothing Care] 42 gm TP BID PRN 11/07/18 [History] Ergocalciferol (Vitamin D2) [Vitamin D2] 50,000 unit PO Q7D 11/07/18 [History] Furosemide 40 mg [Lasix 40 MG] 40 mg PO DAILY 11/07/18 [History] HydrALAzine HCL 25 MG TAB [Apresoline 25 MG TABLET] 1 tab PO TID 11/07/18 [History] Hydrocodone/APAP 5-325 Tab^^^ [[place] 5-325 Tablet^^^] 1 tab PO Q4H PRN MDD 6 11/07/18 [History] Magnesium Oxide 400 mg [Mag-Ox 400] 400 mg PO DAILY 11/07/18 [History] Metoprolol Succinate 50 mg [Toprol Xl 50 MG] 1 tab PO BID 11/07/18 [History] Oxycodone HCl 5 mg Ir [Oxy-IR 5 MG] 5 mg PO Q6H PRN 11/07/18 [History] Potassium Chloride [K-Dur] 20 meq PO DAILY 11/07/18 [History] Travel Risk - International Travel Have you traveled outside of the country in past 3 weeks: No - Coronavirus Screening Are you exhibiting any of the following symptoms?: Yes Symptoms: Fever, Shortness of Breath, Vomiting/Diarrhea, Headaches/Body Aches/Fatigue Close contact with a COVID-19 positive Pt in past 14-21 Days: Yes <DARRYL MARES - Last Filed: 03/01/20 18:16> - Review of Systems Constitutional: Fever, Chills, Fatigue, Malaise Eyes: No Symptoms Ears, Nose, & Throat: Nose Congestion Respiratory: Cough Cardiac: No Symptoms Abdominal/Gastrointestinal: Nausea Genitourinary Symptoms: No Symptoms Musculoskeletal: Myalgias Skin: No Symptoms Neurological: No Symptoms Psychological: No Symptoms Endocrine: No Symptoms Hematologic/Lymphatic: No Symptoms Immunological/Allergic: No Symptoms <DARRYL MRAES - Last Filed: 03/01/20 18:16> - Past Medical History Pertinent Past Medical History: Yes Neurological History: No Pertinent History ENT History: No Pertinent History Cardiac History: Hypertension Respiratory History: No Pertinent History Endocrine Medical History: No Pertinent History Musculoskeletal History: Arthritis, Fractures GI Medical History: Colitis, Diverticulitis, Polyps, Irritable Bowel, Hemorrhoids History: No Pertinent History Psycho-Social History: Anxiety Female Reproductive Disorders: Fibroids Other Medical History: tonsillectomy and addenectomy (childhood), hysterectomy, L knee meniscus repair, breast cancer (L) with lumpectomy x3 (2016), R foot fracture (2007) - Past Surgical History Past Surgical History: Yes Neuro Surgical History: No Pertinent History Cardiac: No Pertinent History Respiratory: No Pertinent History Gastrointestinal: No Pertinent History Genitourinary: No Pertinent History Musculoskeletal: No Pertinent History Female Surgical History: Hysterectomy, Tubal Ligation Other Surgical History: T&A as a child, - Social History Smoking Status: Never smoker Exposure to second hand smoke: No Drug Use: none Patient Lives Alone: Yes - Female History Hx Now: No <DARRYL MARES - Last Filed: 03/01/20 18:16> - Physical Exam General Appearance: no apparent distress, alert Eye Exam: PERRL/EOMI, eyes nml inspection Ears, Nose, Throat Exam: pharyngeal erythema Neck Exam: normal inspection, non-tender, supple, full range of motion Respiratory Exam: normal breath sounds, crackles/rales Cardiovascular Exam: regular rate/rhythm, normal heart sounds Gastrointestinal/Abdomen Exam: soft, normal bowel sounds, No tenderness Back Exam: normal inspection, normal range of motion Extremity Exam: normal inspection, normal range of motion Neurologic Exam: alert, oriented x 3, cooperative Skin Exam: normal color SpO2 Interpretation: normal SpO2: 95 O2 Delivery: Room Air <DARRYL MARES - Last Filed: 03/01/20 18:16> - Nursing Vital Signs Nursing Vital Signs: Initial Vital Signs Temperature 98.5 F 03/01/20 17:01 Pulse Rate 106 H 03/01/20 17:01 Respiratory Rate 20 03/01/20 17:01 Blood Pressure 137/82 03/01/20 17:01 O2 Sat by Pulse Oximetry 95 03/01/20 17:01 Pain Scale Pain Intensity 0 - Course Nursing assessment & vital signs reviewed: Yes EKG Interpreted by Me: RATE (101), Sinus Tach, Left Triplett Deviation, NORMAL INTERVALS, Q-wave (anteroinferior leads) <DARRYL MARES - Last Filed: 03/01/20 18:16> - CT Exams Chest CT Interpretation: Tele-radiologist Report, No PE, Pneumonia <PETR RODNEY - Last Filed: 03/01/20 20:45> Ordered Tests: Active Orders 24 hr Category Date Time Status IV Insertion STAT Care 03/01/20 17:20 Active Oxygen-ED Only Nasal Cannula 2 lpm Care 03/01/20 17:46 Active CHEST 1 VIEW (PORTABLE) Stat Exams 03/01/20 17:20 Taken CHEST WITH CONTRAST [CT] Stat Exams 03/01/20 19:09 Taken BLOOD CULTURE Stat Lab 03/01/20 18:05 Received CBC W DIFF Stat Lab 03/01/20 17:00 Completed CMP Stat Lab 03/01/20 17:00 Completed D-DIMER QUANTITATIVE Stat Lab 03/01/20 17:30 Completed INFLUENZA A+B CASE Stat Lab 03/01/20 17:00 Completed LIPASE Stat Lab 03/01/20 17:00 Completed Lactic Acid Stat Lab 03/01/20 17:26 Completed Lactic Acid Stat Lab 03/01/20 19:37 Received TROPONIN Q3H Lab 03/01/20 17:00 Completed TROPONIN Q3H Lab 03/01/20 20:40 Received TROPONIN Q3H Lab 03/01/20 23:30 Ordered TROPONIN Q3H Lab 03/02/20 02:30 Ordered TROPONIN Q3H Lab 03/02/20 05:30 Ordered UA W/RFX UR CULTURE Stat Lab 03/01/20 17:23 Completed Medication Summary Discontinued Medications Generic Name Dose Route Start Last Admin Trade Name Lauri PRN Reason Stop Dose Admin Azithromycin 500 mg in 250 mls @ 250 mls/hr 03/01/20 17:48 03/01/20 18:59 Zithromax 500 Mg/ 250 Ml Nacl Premix IV 03/01/20 18:47 Infused STAT STA Infusion Ceftriaxone Sodium/Dextrose 1 g in 50 mls @ 100 mls/hr 03/01/20 17:48 03/01/20 18:28 Rocephin 1 Gm-D5w 50 Ml Bag IV 03/01/20 18:17 Infused STAT STA Infusion Azithromycin Confirm 03/01/20 17:55 Zithromax 500 Mg/ 250 Ml Nacl Premix Administered 03/01/20 17:56 Dose 500 mg in 250 mls @ ud IV .STK-MED ONE Ceftriaxone Sodium/Dextrose Confirm 03/01/20 17:55 Rocephin 1 Gm-D5w 50 Ml Bag Administered 03/01/20 17:56 Dose 1 g in 50 mls @ ud IV .STK-MED ONE Lab/Rad Data: Laboratory Result Diagrams 03/01/20 17:00 03/01/20 17:00 Laboratory Results 03/01/20 03/01/20 03/01/20 Range/Units 18:12 17:30 17:26 WBC (4.0-10.5) K/mm3 RBC (4.1-5.4) M/mm3 Hgb (12.0-16.0) gm/dl Hct (35-47) % MCV (78-100) fl MCH (26-32) pg MCHC (32-36) g/dl RDW (11.5-14.0) % Plt Count (150-450) K/mm3 MPV (7.5-11.0) fl Gran % (36.0-66.0) % Eos # (Auto) (0-0.5) Absolute Lymphs (auto) (1.0-4.6) Absolute Monos (auto) (0.0-1.3) Lymphocytes % (24.0-44.0) % Monocytes % (0.0-12.0) % Eosinophils % (0.00-5.0) % Basophils % (0.0-0.4) % Absolute Granulocytes (1.4-6.9) Basophils # (0-0.4) D-Dimer 762 H* (215-500) ng/mL Sodium (137-145) mmol/L Potassium (3.5-5.1) mmol/L Chloride (98-107) mmol/L Carbon Dioxide (22-30) mmol/L Anion Gap (5-15) MEQ/L BUN (7-17) mg/dL Creatinine (0.52-1.04) mg/dL Estimated GFR ML/MIN Glucose (74-106) mg/dL Lactic Acid 2.4 H (0.4-2.0) Calcium (8.4-10.2) mg/dL Total Bilirubin (0.2-1.3) mg/dL AST (14-36) U/L ALT (0-35) U/L Alkaline Phosphatase (38-126) U/L Troponin I (0.000-0.034) ng/mL Serum Total Protein (6.3-8.2) g/dL Albumin (3.5-5.0) g/dL Lipase (23-300) U/L Urine Color (YELLOW) Urine Appearance (CLEAR) Urine pH (5-6) Ur Specific Avery (1.005-1.025) Urine Protein (Negative) Urine Ketones (NEGATIVE) Urine Blood (0-5) Mehrdad/ul Urine Nitrite (NEGATIVE) Urine Bilirubin (NEGATIVE) Urine Urobilinogen (0-1) mg/dL Ur Leukocyte Esterase (NEGATIVE) Urine WBC (Auto) (0-5) /HPF Urine RBC (Auto) (0-2) /HPF U Hyaline Cast (Auto) (0-2) /LPF U Epithel Cells (Auto) (FEW) /HPF Urine Bacteria (Auto) (NEGATIVE) /HPF Urine Culture Reflexed (NO) Urine Glucose (NEGATIVE) mg/dL Influenza Type A Ag (NEGATIVE) Influenza Type B Ag (NEGATIVE) SARS-CoV-2 (PCR) POSITIVE A (NEGATIVE) 03/01/20 03/01/20 03/01/20 Range/Units 17:23 17:00 17:00 WBC (4.0-10.5) K/mm3 RBC (4.1-5.4) M/mm3 Hgb (12.0-16.0) gm/dl Hct (35-47) % MCV (78-100) fl MCH (26-32) pg MCHC (32-36) g/dl RDW (11.5-14.0) % Plt Count (150-450) K/mm3 MPV (7.5-11.0) fl Gran % (36.0-66.0) % Eos # (Auto) (0-0.5) Absolute Lymphs (auto) (1.0-4.6) Absolute Monos (auto) (0.0-1.3) Lymphocytes % (24.0-44.0) % Monocytes % (0.0-12.0) % Eosinophils % (0.00-5.0) % Basophils % (0.0-0.4) % Absolute Granulocytes (1.4-6.9) Basophils # (0-0.4) D-Dimer (215-500) ng/mL Sodium (137-145) mmol/L Potassium (3.5-5.1) mmol/L Chloride (98-107) mmol/L Carbon Dioxide (22-30) mmol/L Anion Gap (5-15) MEQ/L BUN (7-17) mg/dL Creatinine (0.52-1.04) mg/dL Estimated GFR ML/MIN Glucose (74-106) mg/dL Lactic Acid (0.4-2.0) Calcium (8.4-10.2) mg/dL Total Bilirubin (0.2-1.3) mg/dL AST (14-36) U/L ALT (0-35) U/L Alkaline Phosphatase (38-126) U/L Troponin I < 0.012 (0.000-0.034) ng/mL Serum Total Protein (6.3-8.2) g/dL Albumin (3.5-5.0) g/dL Lipase (23-300) U/L Urine Color STRAW (YELLOW) Urine Appearance CLEAR (CLEAR) Urine pH 6.0 (5-6) Ur Specific Avery 1.006 (1.005-1.025) Urine Protein NEGATIVE (Negative) Urine Ketones NEGATIVE (NEGATIVE) Urine Blood NEGATIVE (0-5) Mehrdad/ul Urine Nitrite NEGATIVE (NEGATIVE) Urine Bilirubin NEGATIVE (NEGATIVE) Urine Urobilinogen NEGATIVE (0-1) mg/dL Ur Leukocyte Esterase NEGATIVE (NEGATIVE) Urine WBC (Auto) 0-2 (0-5) /HPF Urine RBC (Auto) NONE (0-2) /HPF U Hyaline Cast (Auto) 0-2 (0-2) /LPF U Epithel Cells (Auto) NONE (FEW) /HPF Urine Bacteria (Auto) NONE (NEGATIVE) /HPF Urine Culture Reflexed NO (NO) Urine Glucose NEGATIVE (NEGATIVE) mg/dL Influenza Type A Ag NEGATIVE (NEGATIVE) Influenza Type B Ag NEGATIVE (NEGATIVE) SARS-CoV-2 (PCR) (NEGATIVE) 03/01/20 03/01/20 Range/Units 17:00 17:00 WBC 4.7 (4.0-10.5) K/mm3 RBC 4.51 (4.1-5.4) M/mm3 Hgb 13.6 (12.0-16.0) gm/dl Hct 43.2 (35-47) % MCV 95.8 (78-100) fl MCH 30.2 (26-32) pg MCHC 31.5 L (32-36) g/dl RDW 13.7 (11.5-14.0) % Plt Count 221 (150-450) K/mm3 MPV 10.8 (7.5-11.0) fl Gran % 61.3 (36.0-66.0) % Eos # (Auto) 0.02 (0-0.5) Absolute Lymphs (auto) 1.19 (1.0-4.6) Absolute Monos (auto) 0.59 (0.0-1.3) Lymphocytes % 25.2 (24.0-44.0) % Monocytes % 12.5 H (0.0-12.0) % Eosinophils % 0.4 (0.00-5.0) % Basophils % 0.6 (0.0-0.4) % Absolute Granulocytes 2.89 (1.4-6.9) Basophils # 0.03 (0-0.4) D-Dimer (215-500) ng/mL Sodium 135 L (137-145) mmol/L Potassium 3.4 L (3.5-5.1) mmol/L Chloride 97 L (98-107) mmol/L Carbon Dioxide 29 (22-30) mmol/L Anion Gap 12.7 (5-15) MEQ/L BUN 18 H (7-17) mg/dL Creatinine 1.05 H (0.52-1.04) mg/dL Estimated GFR 54.6 ML/MIN Glucose 130 H (74-106) mg/dL Lactic Acid (0.4-2.0) Calcium 9.6 (8.4-10.2) mg/dL Total Bilirubin 0.40 (0.2-1.3) mg/dL AST 35 (14-36) U/L ALT 19 (0-35) U/L Alkaline Phosphatase 89 (38-126) U/L Troponin I (0.000-0.034) ng/mL Serum Total Protein 7.3 (6.3-8.2) g/dL Albumin 4.2 (3.5-5.0) g/dL Lipase 309 H (23-300) U/L Urine Color (YELLOW) Urine Appearance (CLEAR) Urine pH (5-6) Ur Specific Avery (1.005-1.025) Urine Protein (Negative) Urine Ketones (NEGATIVE) Urine Blood (0-5) Mehrdad/ul Urine Nitrite (NEGATIVE) Urine Bilirubin (NEGATIVE) Urine Urobilinogen (0-1) mg/dL Ur Leukocyte Esterase (NEGATIVE) Urine WBC (Auto) (0-5) /HPF Urine RBC (Auto) (0-2) /HPF U Hyaline Cast (Auto) (0-2) /LPF U Epithel Cells (Auto) (FEW) /HPF Urine Bacteria (Auto) (NEGATIVE) /HPF Urine Culture Reflexed (NO) Urine Glucose (NEGATIVE) mg/dL Influenza Type A Ag (NEGATIVE) Influenza Type B Ag (NEGATIVE) SARS-CoV-2 (PCR) (NEGATIVE) - Progress Air Movement: fair Blood Culture(s) Obtained: Yes Antibiotics given: Yes Counseled pt/family regarding: lab results, diagnosis, rad results <DARRYL MARES - Last Filed: 03/01/20 18:16> - Progress Progress: improved, re-examined Air Movement: good Discussed with Dr.: Other (Dr Knowles) Will see patient in: hospital (full admit) Counseled pt/family regarding: need for follow-up <PETR RODNEY - Last Filed: 03/01/20 20:45> - Progress Progress Note: 03/01/20 17:32 Patient has left lower lobe pneumonia. Her oxygen saturation is dropping to 89% while sitting. I believe patient would desat with activity. She is placed on 2 L oxygen. She has a normal white count. She started on Rocephin and Zithromax. COVID-19 testing is obtained and is pending. Care is transferred to Dr. Frost at shift change for final disposition to admission to regular floor versus Covid depending upon COVID-19 test result. (DARRYL MARES) 03/01/20 19:10 pt received at change of shift from Dr. Mares after intro to pt , discussion of pending studies/labs and DDX; Pt is Covid + and has elevated D Dimer- will do PE protocol - pt wishes this after discussion of risk/benefits. 03/01/20 20:44 discussed with Pt and Dr. Knowles and will admit to begin Tx for COvid. including lovenox proph (PETR RODNEY) - Departure Departure Disposition: Observation <DARRYL MARES - Last Filed: 03/01/20 18:16> - Departure Departure Disposition: In-patient Admission Critical Care Time: Yes Critical Care Time(excluding separately billable procedures): Critical 30-74 mins (initial O2 sat required Oxygen , tachycardia - close observation approx 30 minutes) <PETR RODNEY - Last Filed: 03/01/20 20:45> - Departure Clinical Impression: COVID-19, Elevated d-dimer Left lower lobe pneumonia Qualifiers: Pneumonia type: due to unspecified organism Qualified Code(s): J18.9 - Pneumonia, unspecified organism Respiratory failure Qualifiers: Chronicity: acute Respiratory failure complication: hypoxia Qualified Code(s): J96.01 - Acute respiratory failure with hypoxia Condition: Good Referrals: DOCTOR,NO FAMILY [Primary Care Provider] -
[2020-03-01] MEDS ORDERED: Zithromax 500 MG/ 250 ML NaCl Premix 500 MG/250 ML IVPB IV ONE (17:55)
[2020-03-01] MEDS ORDERED: ROCEPHIN 1 Gm-D5w 50 ml Bag** 1 G/50 ML IVPB IV ONE (17:55)
[2020-03-01 18:48] LABS: INFLUENZA A NEGATIVE (NEGATIVE); INFLUENZA B NEGATIVE (NEGATIVE)
--- NOTE | 2020-03-01 21:14 | XRAY ---
Indication: Chest pain, short of breath, and weakness. Positive COVID 19. Elevated d-dimer. Multiple contiguous axial images obtained through the chest using 80 cc Isovue 370 contrast and PE protocol. Comparison: December 14, 2011. There is good opacification of the pulmonary arteries to include the lobar and segmental branches. No pulmonary embolus. Heart is not enlarged. Aorta is normal in course and caliber without aneurysm/dissection. No pathologic mediastinal/hilar lymphadenopathy. New moderate sized hiatal hernia with partial intrathoracic stomach. Lungs demonstrates new bilateral patchy airspace disease greatest in the right upper lobe. No consolidations/effusion. Bony thorax intact. Limited upper abdomen again demonstrates a few hepatic cysts, largest 2.4 cm. Impression: 1. Again negative pulmonary embolus. 2. New bilateral patchy airspace disease. 3. New moderate sized hiatal hernia. 4. Again incidental hepatic cysts. Comment: Preliminary interpretation was made by [facility]. No critical discrepancy.
--- NOTE | 2020-03-01 21:17 | XRAY ---
Indication: Chest pain, short of breath, and weakness. Positive COVID 19. Comparison: February 13, 2012. Portable chest demonstrates new hazy patchy groundglass airspace disease bilaterally without consolidation/large effusion. Heart is not enlarged. Bony thorax intact.
[2020-03-01] MEDS ORDERED: REMDESIVIR 200 MG in Sodium Chloride 0.9% 250 ML 250 ML IV ONE (21:18)
[2020-03-01] MEDS ORDERED: HUMULIN R SQ PRN (21:18)
[2020-03-01] MEDS ORDERED: TYLENOL 325 MG PO PRN (21:18)
[2020-03-01] MEDS ORDERED: VENTOLIN COMMON CANISTER IH PRN (21:18)
[2020-03-01] MEDS ORDERED: REMDESIVIR 100 MG in Sodium Chloride 0.9% 100 ML IVPB 100 ML IV SCH (21:18)
[2020-03-01] MEDS ORDERED: Sodium Chloride 0.9% 250 ML 250 ML IV ONE (21:44)
[2020-03-01] MEDS ORDERED: REMDESIVIR IV ONE (21:45)
[2020-03-01] MEDS: Pepcid 20 MG VIAL IV SCH (22:22)
[2020-03-01] MEDS ORDERED: Decadron 4 MG INJ ONE (23:53)
[2020-03-02] MEDS: Apresoline 25 MG TABLET PO SCH ×4 (00:06→21:29)
[2020-03-02] MEDS: Toprol Xl 50 MG PO SCH ×3 (00:06→21:30)
[2020-03-02] MEDS: Klor Con 10 MEQ PO SCH ×4 (00:06→21:30)
[2020-03-02 06:48] LABS: Absolute Neutrophil Ct (ANC) 2.13 (1.4-6.9); BASOPHIL % 0.6 % (0.0-0.4); Basophil (Absolute #) 0.02 (0-0.4); Eosinophil % 0.6 % (0.00-5.0); Eosinophil (Absolute #) 0.02 (0-0.5); Hematocrit 38.3 % (35-47); Hemoglobin 12.2 gm/dl (12.0-16.0); Lymphocyte (Absolute #) 0.74 (1.0-4.6); Lymphocytes % 21.6 % (24.0-44.0); Mean Cell Volume 96.7 fl (78-100); Mean Corpuscular Hemoglobin 30.8 pg (26-32); Mean Corpuscular Hgb Concent. 31.9 g/dl (32-36); Mean Platelet Volume 10.8 fl (7.5-11.0); Monocyte (Absolute #) 0.52 (0.0-1.3); Monocytes % 15.2 % (0.0-12.0); Platelet Count 181 K/mm3 (150-450); Red Blood Count 3.96 M/mm3 (4.1-5.4); Red Cell Distribution Width 13.7 % (11.5-14.0); White Blood Count 3.4 K/mm3 (4.0-10.5)
[2020-03-02 07:00] LABS: INR 1.12 (0.8-3.0); PROTIME 12.7 SECONDS (9.95-12.35)
[2020-03-02 07:12] LABS: ALBUMIN 3.5 g/dL (3.5-5.0); ALKALINE PHOSPHATASE 78 U/L (38-126); ANION GAP 8.3 MEQ/L (5-15); BLOOD UREA NITROGEN 14 mg/dL (7-17); CHLORIDE 102 mmol/L (98-107); Calcium 8.5 mg/dL (8.4-10.2); Carbon Dioxide 29 mmol/L (22-30); Creatinine 1 0.96 mg/dL (0.52-1.04); EST GLOMERULAR FILTRATION RATE > 60.0 ML/MIN; Glucose 107 mg/dL (74-106); NT PRO BNP 179 pg/mL (0-900); Potassium 3.5 mmol/L (3.5-5.1); SGOT/AST 34 U/L (14-36); SGPT/ALT 15 U/L (0-35); SODIUM 136 mmol/L (137-145); Total Protein 6.2 g/dL (6.3-8.2)
[2020-03-02] MEDS: ENOXAPARIN SODIUM SQ SCH (09:04)
[2020-03-02] MEDS: DECADRON 10MG INJ. IV SCH (09:04)
[2020-03-02] MEDS: Pepcid 20 MG VIAL IV SCH ×2 (09:04→21:30)
[2020-03-02] MEDS ORDERED: MEDICATION INTERVENTION PO SCH (12:00)
[2020-03-02] MEDS: Lasix 40 MG PO SCH (12:23)
[2020-03-02] MEDS: NORVASC 5 MG PO SCH (12:23)
[2020-03-02] MEDS: REMDESIVIR 100 MG in Sodium Chloride 0.9% 100 ML IVPB 100 ML IV SCH (15:56)
[2020-03-02] MEDS: Zofran 4 MG/2 ML VIAL IV PRN (15:56)
[2020-03-02] MEDS ORDERED: Zithromax 500 MG/ 250 ML NaCl Premix 500 MG/250 ML IVPB IV SCH (18:00)
[2020-03-03 07:09] LABS: ALBUMIN 3.6 g/dL (3.5-5.0); ALKALINE PHOSPHATASE 74 U/L (38-126); ANION GAP 10.2 MEQ/L (5-15); BLOOD UREA NITROGEN 23 mg/dL (7-17); CHLORIDE 105 mmol/L (98-107); Calcium 8.6 mg/dL (8.4-10.2); Carbon Dioxide 25 mmol/L (22-30); Creatinine 1 0.96 mg/dL (0.52-1.04); EST GLOMERULAR FILTRATION RATE > 60.0 ML/MIN; Glucose 121 mg/dL (74-106); INR 1.11 (0.8-3.0); PROTIME 12.6 SECONDS (9.95-12.35); Potassium 3.8 mmol/L (3.5-5.1); SGOT/AST 44 U/L (14-36); SGPT/ALT 17 U/L (0-35); SODIUM 137 mmol/L (137-145); Total Protein 6.5 g/dL (6.3-8.2)
[2020-03-03] MEDS: ECOTRIN 81 MG PO SCH (09:46)
[2020-03-03] MEDS: DECADRON 10MG INJ. IV SCH (09:46)
[2020-03-03] MEDS: Apresoline 25 MG TABLET PO SCH ×3 (09:46→21:27)
[2020-03-03] MEDS: NORVASC 5 MG PO SCH (09:47)
[2020-03-03] MEDS: Klor Con 10 MEQ PO SCH ×3 (09:47→21:27)
[2020-03-03] MEDS: Lasix 40 MG PO SCH (09:47)
[2020-03-03] MEDS: Pepcid 20 MG VIAL IV SCH ×2 (09:47→21:27)
[2020-03-03] MEDS: Toprol Xl 50 MG PO SCH ×2 (09:48→21:27)
[2020-03-03] MEDS: ENOXAPARIN SODIUM SQ SCH (09:54)
[2020-03-03] MEDS ORDERED: ANASTROZOLE 1 MG PO SCH (10:00)
--- NOTE | 2020-03-03 14:15 | HP ---
CHIEF COMPLAINT: Shortness of breath, extreme fatigue, muscle aches. HISTORY OF PRESENT ILLNESS: The patient had the above complaints for about five days. She had a negative test on Tuesday and came back in the hospital last night (Tuesday night) and tested positive. She said she was exposed to two people probably at work. She works at an insurance company. Temperature as high as 99.9F the day she was admitted. She said she has no lung disease, no heart problems other than hypertension. She is normally healthy and strong for 74. She feels better this morning. MEDICATIONS: Tylenol, vitamin C 500 q.d., aspirin 81 q.d., Xanax 0.25 b.i.d., Norvasc 5 mg q.d., Flexeril 10 q.d., vitamin D2 50,000 q.d., Lasix 20 q.d., Apresoline 25 b.i.d., hydrocodone 5 every four hours PRN, Mag-Ox 400 q.d., metoprolol 50 b.i.d., Oxy-IR 5 mg every six hours PRN, KCL 20 q.d., Monistat Soothing Care b.i.d. to radiation area. Arimidex 1 mg q.d. for breast cancer. ALLERGIES: CODEINE. MORPHINE. OLMESARTAN. IMMUNIZATIONS: No tetanus. She had influenza and pneumococcal vaccine. PAST MEDICAL HISTORY: Anxiety. Hypertension. History of colitis. Irritable bowel syndrome. Hemorrhoids. PAST SURGICAL HISTORY: Tonsillectomy. Tubal ligation. Hysterectomy. Left knee meniscal repair. Left breast cancer lumpectomy x3 in 2016. REVIEW OF SYSTEMS: HEENT: No problems hearing or seeing. CHEST: A little bit short of breath but nothing striking. Chest x-ray showed early COVID pneumonia. ABDOMEN: She was a little nauseated this morning. No pain. No gallbladder attacks. No constipation. She did have a little diarrhea yesterday. EXTREMITIES: She is aching all over including headache. SOCIAL HISTORY: Nonsmoker. PHYSICAL EXAMINATION: The patient is alert, orientated and looks healthy today. She is appropriately age, a very healthy looking 74 year old female. O2 saturation normal. Temperature 98F, pulse 60, respiratory rate 18, blood pressure 120/70. HEENT: Pupils equal and reactive to light. Hearing is normal. NECK: Supple without adenopathy. CHEST: Clear. CVS: No murmurs or gallops. ABDOMEN: Soft. No masses or organomegaly. EXTREMITIES: Scar over the left knee. LAB DATA AND TESTS: Her blood work and CBC were normal. CT scan showed a little bit of pneumonia typical for COVID and other tests were negative. Creatinine 1.05, glucose 130. Lipase minimally elevated at 309. IMPRESSION: 1) COVID pneumonia. 2) Hypertension. 3) History of breast cancer. PLAN: The patient will be treated with Remdesivir, Decadron. She should be anticoagulated with Lovenox. Rocephin and Zithromax will be discontinued. PROGNOSIS: [place] to be good.
[2020-03-03] MEDS: REMDESIVIR 100 MG in Sodium Chloride 0.9% 100 ML IVPB 100 ML IV SCH (17:46)
[2020-03-04 05:43] LABS: INR 1.11 (0.8-3.0); PROTIME 12.6 SECONDS (9.95-12.35)
[2020-03-04 05:57] LABS: ALBUMIN 3.4 g/dL (3.5-5.0); ANION GAP 7.7 MEQ/L (5-15); BILIRUBIN,TOTAL 0.3 mg/dL (0.2-1.3); Calcium 8.6 mg/dL (8.4-10.2); Creatinine 1 0.97 mg/dL (0.52-1.04); EST GLOMERULAR FILTRATION RATE 59.8 ML/MIN; Potassium 3.8 mmol/L (3.5-5.1)
[2020-03-04] MEDS: Zofran 4 MG/2 ML VIAL IV PRN ×2 (07:37→21:30)
[2020-03-04] MEDS: Apresoline 25 MG TABLET PO SCH ×3 (08:44→21:31)
[2020-03-04] MEDS: DECADRON 10MG INJ. IV SCH (08:45)
[2020-03-04] MEDS: Klor Con 10 MEQ PO SCH ×3 (08:46→21:31)
[2020-03-04] MEDS: ENOXAPARIN SODIUM SQ SCH (08:46)
[2020-03-04] MEDS: Pepcid 20 MG VIAL IV SCH ×2 (08:46→21:31)
[2020-03-04] MEDS: Toprol Xl 50 MG PO SCH ×2 (08:46→21:31)
[2020-03-04] MEDS: Lasix 40 MG PO SCH (08:47)
[2020-03-04] MEDS: NORVASC 5 MG PO SCH (08:47)
[2020-03-04] MEDS: xanAX 0.5 MG PO PRN ×2 (08:53→21:31)
--- NOTE | 2020-03-04 09:01 | PROG NOTE ---
DATE: 03/03/2020 HISTORY: Chief complaint of fatigue, slight cough, feeling better, eating okay, temperature down. O2 saturation drops into the 80's if she takes off her oxygen. She is still requiring 5 liters of O2. They tried a mask on her last night when it dropped into the 70's when she was sleeping. The D-dimer is 777. She is anticoagulated, on Remdesivir and Decadron. IMPRESSION: Slightly better, COVID pneumonia moderate.
[2020-03-04] MEDS: REMDESIVIR 100 MG in Sodium Chloride 0.9% 100 ML IVPB 100 ML IV SCH (15:59)
[2020-03-05 05:36] LABS: INR 1.14 (0.8-3.0); PROTIME 12.9 SECONDS (9.95-12.35)
[2020-03-05 05:41] LABS: ALBUMIN 3.3 g/dL (3.5-5.0); ALKALINE PHOSPHATASE 68 U/L (38-126); ANION GAP 8.6 MEQ/L (5-15); BLOOD UREA NITROGEN 30 mg/dL (7-17); CHLORIDE 101 mmol/L (98-107); Calcium 8.7 mg/dL (8.4-10.2); Carbon Dioxide 30 mmol/L (22-30); Creatinine 1 0.95 mg/dL (0.52-1.04); EST GLOMERULAR FILTRATION RATE > 60.0 ML/MIN; Glucose 127 mg/dL (74-106); Potassium 3.9 mmol/L (3.5-5.1); SGOT/AST 25 U/L (14-36); SGPT/ALT 18 U/L (0-35); SODIUM 136 mmol/L (137-145)
[2020-03-05] MEDS: Lasix 40 MG PO SCH (09:17)
[2020-03-05] MEDS: Pepcid 20 MG VIAL IV SCH (09:17)
[2020-03-05] MEDS: ECOTRIN 81 MG PO SCH (09:17)
[2020-03-05] MEDS: Klor Con 10 MEQ PO SCH (09:17)
[2020-03-05] MEDS: NORVASC 5 MG PO SCH (09:17)
[2020-03-05] MEDS: Toprol Xl 50 MG PO SCH (09:17)
[2020-03-05] MEDS: Apresoline 25 MG TABLET PO SCH (09:17)
[2020-03-05] MEDS: DECADRON 10MG INJ. IV SCH ×2 (09:18→09:48)
[2020-03-05] MEDS: ENOXAPARIN SODIUM SQ SCH (09:28)
[2020-03-05 12:22] VITALS: BP 107/65; PULSE 73; O2SAT 93
--- NOTE | 2020-03-05 15:02 | DS ---
ADMISSION DIAGNOSIS: COVID pneumonia. DISCHARGE DIAGNOSES: 1) COVID PNEUMONIA. 2) COVID GASTRITIS. 3) HYPERTENSION. 4) CHRONIC PAIN. HOSPITAL COURSE: The patient came to the emergency room on 03/01/2020 because of shortness of breath, extreme fatigue, muscle aches. She has no history of lung disease. Chest x-ray showed early COVID pneumonia. She had some hypertension, distant history of breast cancer. The patient was treated with Remdesivir and Decadron. She was fully anticoagulated with Lovenox. In the emergency room she was given Rocephin and Zithromax and that was discontinued because of a normal white count. D-dimer was elevated which is usually seen with this viral pneumonia. We kept her O2 saturations above 90 and we gradually got her O2 down to 2 liters. However at night time she drops and I think it was increased to 3 last night. She is not very short of breath. She is not coughing. She has been eating well for the last three or four days although she did have nausea and threw up day before last. The last D-dimer on 03/03/2020 was down to 597 have of what it was when she came in on. IMPRESSION: The patient is much improved from COVID pneumonia. She will be sent home on her usual medicines plus prednisone 40 x5, 20 x5 and some antiemetic, Zofran use if needed. Follow up with her doctor in two weeks. PROGNOSIS: Good.
== END 2020-03-05 13:30 | disposition home or self-care (01) | DRG 177 ==
LOC: ED 16:50 → MED SURG 21:12
PROVIDERS: ADMIT Family Medicine; ATTEND Family Medicine
DX: U07.1 COVID-19 (principal); J12.82 Pneumonia due to coronavirus disease 2019; A08.39 Other viral enteritis; R50.9 Fever, unspecified; R53.1 Weakness; R53.83 Other fatigue; R11.2 Nausea with vomiting, unspecified; R10.9 Unspecified abdominal pain; Z79.899 Other long term (current) drug therapy; I10 Essential (primary) hypertension; G89.29 Other chronic pain; Z85.3 Personal history of malignant neoplasm of breast
CPT/HCPCS: 36000; 36415; 71045; 71260; 80053; 81001; 83036; 83605; 83690; 83880; 84484; 85025; 85379; 85610; 87040; 87400; 94762; 96365; 99285; 99291; U0003; 94760; J0456; J0696; J1100; J1650; J2405; A9270-GY

== ENCOUNTER 2020-05-24 11:13 | Emergency (ER) | payer MEDICARE, OTHER ==
[2020-05-24] MEDS ORDERED: DUONEB 0.5-3 MG/3 ml Neb IH ONE (12:10)
[2020-05-24] MEDS: DUONEB 0.5-3 MG/3 ml Neb IH ONE (12:13)
[2020-05-24 12:24] VITALS: PULSE 78
--- NOTE | 2020-05-24 12:25 | XRAY ---
Indication: Short of breath. Comparison: April 04, 2020. Portable chest remains clear with chronic right hemidiaphragm elevation. Heart not enlarged again with small hiatal hernia. Bony thorax intact again with mild osteopenia and degenerative changes. Impression: Stable nonacute chest with chronic features.
[2020-05-24 12:38] LABS: MAGNESIUM 2.3 mg/dL (1.6-2.3)
[2020-05-24 12:43] LABS: Appearance CLEAR (CLEAR); Bilirubin NEGATIVE (NEGATIVE); Blood NEGATIVE Ery/ul (0-5); Glucose NEGATIVE (NEGATIVE); Ketones NEGATIVE (NEGATIVE); Leukocyte Esterase TRACE (NEGATIVE); Mucus SLIGHT /HPF (NEGATIVE); Nitrite NEGATIVE (NEGATIVE); Protein,Urine Dip NEGATIVE (Negative); Specific Gravity 1.008 (1.005-1.025); Urobilinogen NEGATIVE mg/dL (0-1); WBC 0-2 /HPF (0-5)
[2020-05-24 14:04] LABS: Absolute Neutrophil Ct (ANC) 4.76 (1.4-6.9); BASOPHIL % 1.2 % (0.0-0.4); Basophil (Absolute #) 0.08 (0-0.4); Eosinophil % 2.7 % (0.00-5.0); Eosinophil (Absolute #) 0.18 (0-0.5); Hematocrit 39.8 % (35-47); Hemoglobin 12.3 gm/dl (12.0-16.0); Lymphocyte (Absolute #) 1.02 (1.0-4.6); Mean Cell Volume 99.7 fl (78-100); Mean Corpuscular Hemoglobin 30.8 pg (26-32); Mean Corpuscular Hgb Concent. 30.9 g/dl (32-36); Monocyte (Absolute #) 0.75 (0.0-1.3); Neutrophil % 70.1 % (36.0-66.0); Platelet Count 283 K/mm3 (150-450); Red Blood Count 3.99 M/mm3 (4.1-5.4); Red Cell Distribution Width 13.5 % (11.5-14.0); White Blood Count 6.8 K/mm3 (4.0-10.5)
[2020-05-24 14:25] LABS: ALBUMIN 4.4 g/dL (3.5-5.0); ANION GAP 14.7 MEQ/L (5-15); BILIRUBIN,TOTAL 0.5 mg/dL (0.2-1.3); Calcium 10.2 mg/dL (8.4-10.2); Creatinine 1 1.07 mg/dL (0.52-1.04); EST GLOMERULAR FILTRATION RATE 53.4 ML/MIN; Potassium 3.7 mmol/L (3.5-5.1); Total Protein 7.2 g/dL (6.3-8.2)
--- NOTE | 2020-05-24 14:36 | ERPHSYRPT ---
- History of Present Illness Time Seen by Provider: 05/24/20 11:52 Patient Subjective Stated Complaint: SOB, nausea, heart burn, loose stools Triage Nursing Assessment: pt to ED c/o SOB, nausea without emesis, heart burn without CP, and loose stool about since starting symbicort on May 03. pt states she has discuess sx with PCP and was told it may take time for her body to adjust to new meds. pt recently called pharmacy to see if she had any changes of meds, she did not. pt states taht since sx have not subsided she wanted to be evaulated in ED. pt wears 2L NC PRN post COVID in February. pt does not appear in resp distress. lungs clear and equal bilat, heart sounds clear. ambulatory wit hout assist. A&Ox3. Physician History: 74 years old female with history of hypertension, COPD with respiratory failure needing oxygen 2 L as needed since recent COVID-19 presented in the ER with chief complaint of shortness of breath off and on for the last 2 weeks and some shakiness and arms which wakes her up from sleep occasionally. Reports symptoms started after she was placed on Symbicort. Denies any exertional dyspnea but oxygen does help her relieve symptoms. Patient also report feeling nauseated early in the morning with heartburns and no vomiting. She denies any abdominal pain but does have some semisolid stools more frequently since she has been started on Symbicort. Patient reports earlier today she was sitting in the couch and started to feel shakiness, mild shortness of breath like her routine symptoms, took Xanax and her symptoms were resolved. She does have history of anxiety and takes Xanax as needed. Denies any chest pain or palpitations. No recent fever chills reported. She has a mild chronic cough which is not any worse than usual. Denies lower extremity swelling. Timing/Duration: week(s) (2), intermittent, resolved prior to arrival, improved Activities at Onset: rest Severity of Dyspnea-Max: moderate Severity of Dyspnea-Current: none Possible Cause: occasional episodes Modifying Factors: Improves With: oxygen Associated Symptoms: anxiety, No chest pain/discomfort, No edema, No fever, No insomnia, No loss of appetite, No lightheadedness, No wheezing, No weakness, No ankle swelling, No chills, No hemoptysis, No calf pain, No heaviness, No heart racing, No lightheadedness, No muscle spasms hands, No painful breathing, No productive cough, No tightness, No tingling face, No tingling hands Allergies/Adverse Reactions: codeine [Codeine] Allergy (Severe, Verified 05/24/20 11:45) Nausea morphine Allergy (Intermediate, Verified 05/24/20 11:45) Vomiting olmesartan medoxomil [From Benicar] Allergy (Verified 05/24/20 11:45) Androgenic Anabolic Steroid Adverse Reaction (Verified 05/24/20 11:45) Home Medications: ALPRAZolam 0.25 MG [xanAX 0.25 MG] 0.5 mg PO BID PRN PRN 11/07/18 [History] Acetaminophen 325 mg [Tylenol 325 mg] 650 mg PO Q6H PRN PRN 11/07/18 [History] Amlodipine Besylate 5 mg [Norvasc 5 mg] 5 mg PO DAILY 11/07/18 [History] Anastrozole [Arimidex] 1 mg PO DAILY 11/07/18 [History] Ascorbic Acid 500 mg [Vitamin C 500 MG] 500 mg PO DAILY 11/07/18 [History] Aspirin EC 81 mg [Ecotrin 81 mg] 81 mg PO UD 11/07/18 [History] Ergocalciferol (Vitamin D2) [Vitamin D2] 50,000 unit PO DAILY 11/07/18 [History] Furosemide 40 mg [Lasix 40 MG] 40 mg PO DAILY 11/07/18 [History] HydrALAzine HCL 25 MG TAB [Apresoline 25 MG TABLET] 1 tab PO TID 11/07/18 [History] Metoprolol Succinate 50 mg [Toprol Xl 50 MG] 1 tab PO BID 11/07/18 [H istory] Potassium Chloride [K-Dur] 20 meq PO TID 11/07/18 [History] Hx Tetanus, Diphtheria Vaccination/Date Given: Yes Hx Influenza Vaccination/Date Given: Yes Hx Pneumococcal Vaccination/Date Given: Yes Travel Risk - International Travel Have you traveled outside of the country in past 3 weeks: No - Coronavirus Screening Are you exhibiting any of the following symptoms?: Yes Symptoms: Shortness of Breath Close contact with a COVID-19 positive Pt in past 14-21 Days: No - Vaccine Status Have you recieved a Covid-19 vaccination: No - Review of Systems Constitutional: Fatigue, Weakness Eyes: No Symptoms Ears, Nose, & Throat: No Symptoms Respiratory: Cough, Dyspnea, Wheezing Cardiac: No Symptoms Abdominal/Gastrointestinal: Nausea Genitourinary Symptoms: No Symptoms Musculoskeletal: No Symptoms Skin: No Symptoms Neurological: No Symptoms Psychological: Anxiety Endocrine: No Symptoms Hematologic/Lymphatic: No Symptoms Immunological/Allergic: No Symptoms - Past Medical History Pertinent Past Medical History: Yes Neurological History: No Pertinent History ENT History: No Pertinent History Cardiac History: Hypertension Respiratory History: COPD, Sleep Apnea, Other Endocrine Medical History: No Pertinent History Musculoskeletal History: Arthritis, Fractures GI Medical History: Colitis, Diverticulitis, Polyps, Irritable Bowel, Hemorrhoids History: No Pertinent History Psycho-Social History: Anxiety Female Reproductive Disorders: Fibroids Other Medical History: tonsillectomy and addenectomy (childhood), hysterectomy, L knee meniscus repair, breast cancer (L) with lumpectomy x3 (2016), R foot fracture (2006). COVID Feb 2020 - Past Surgical History Past Surgical History: Yes Neuro Surgical History: No Pertinent History Cardiac: No Pertinent History Respiratory: No Pertinent History Gastrointestinal: No Pertinent History Genitourinary: No Pertinent History Musculoskeletal: Orthopedic Surgery Female Surgical History: Hysterectomy, Tubal Ligation Other Surgical History: T&A as a child,. Feb 2019 pin removed from R wrist - Social History Smoking Status: Never smoker Exposure to second hand smoke: No Drug Use: none Patient Lives Alone: No - Female History Hx Now: No - Nursing Vital Signs Nursing Vital Signs: Initial Vital Signs Temperature 98.2 F 05/24/20 11:37 Pulse Rate 87 05/24/20 11:37 Respiratory Rate 18 05/24/20 11:37 Blood Pressure 123/74 05/24/20 11:37 O2 Sat by Pulse Oximetry 97 05/24/20 11:37 Pain Scale Pain Intensity 0 - Physical Exam General Appearance: no apparent distress, alert, anxiety Eye Exam: PERRL/EOMI, eyes nml inspection Ears, Nose, Throat Exam: hearing grossly normal, normal ENT inspection, normal pharynx Neck Exam: normal inspection, non-tender, supple, carotid bruit Respiratory Exam: normal breath sounds, lungs clear Cardiovascular/Chest Exam: normal heart sounds, regular rate/rhythm Abdominal/Gastrointestinal Exam: soft, normal bowel sounds, No tenderness Extremity Exam: non-tender, normal range of motion Neurologic Exam: alert, oriented x 3, cooperative, hydroblaster II-XII nml as tested, sensation nml, No motor deficits, No sensory deficit Skin Exam: normal color SpO2 Interpretation: normal SpO2: 98 O2 Delivery: Nasal Cannula - Course EKG Interpreted by Me: RATE, Sinus Rhythm, Left [place] Deviation (LAFB), NORMAL QRS, Q-wave Ordered Tests: Active Orders 24 hr Category Date Time Status Sharepoint Application Developer STAT Care 05/24/20 12:03 Active EKG-ER Only STAT Care 05/24/20 12:02 Active IV Insertion STAT Care 05/24/20 12:02 Active CHEST 1 VIEW (PORTABLE) Stat Exams 05/24/20 12:02 Completed CBC W DIFF Stat Lab 05/24/20 11:50 Completed CMP Stat Lab 05/24/20 14:13 Completed D-DIMER QUANTITATIVE Stat Lab 05/24/20 11:50 Completed LIPASE Stat Lab 05/24/20 11:50 Completed Lactic Acid Stat Lab 05/24/20 12:25 Completed MAGNESIUM Stat Lab 05/24/20 11:50 Completed NT PRO BNP Stat Lab 05/24/20 11:50 Completed TROPONIN Q3H Lab 05/24/20 11:50 Completed TROPONIN Q3H Lab 05/24/20 15:15 Ordered TROPONIN Q3H Lab 05/24/20 18:15 Ordered TROPONIN Q3H Lab 05/24/20 21:15 Ordered TROPONIN Q3H Lab 05/25/20 00:15 Ordered UA W/RFX UR CULTURE Stat Lab 05/24/20 12:04 Completed Respiratory Therapy Assessment DAILY RT 05/24/20 12:16 Active Medication Summary Discontinued Medications Generic Name Dose Route Start Last Admin Trade Name Freq PRN Reason Stop Dose Admin Albuterol/Ipratropium 3 ml 05/24/20 12:02 05/24/20 12:13 Duoneb 0.5-3 Mg/3 Ml Neb IH 05/24/20 12:03 3 ml STAT ONE Administration Albuterol/Ipratropium Confirm 05/24/20 12:10 Duoneb 0.5-3 Mg/3 Ml Neb Administered 05/24/20 12:11 Dose 3 ml IH .STK-MED ONE Lab/Rad Data: Laboratory Result Diagrams 05/24/20 11:50 05/24/20 14:13 Laboratory Results 05/24/20 05/24/20 05/24/20 Range/Units 14:13 12:25 12:04 WBC (4.0-10.5) K/mm3 RBC (4.1-5.4) M/mm3 Hgb (12.0-16.0) gm/dl Hct (35-47) % MCV (78-100) fl MCH (26-32) pg MCHC (32-36) g/dl RDW (11.5-14.0) % Plt Count (150-450) K/mm3 MPV (7.5-11.0) fl Gran % (36.0-66.0) % Eos # (Auto) (0-0.5) Absolute Lymphs (auto) (1.0-4.6) Absolute Monos (auto) (0.0-1.3) Lymphocytes % (24.0-44.0) % Monocytes % (0.0-12.0) % Eosinophils % (0.00-5.0) % Basophils % (0.0-0.4) % Absolute Granulocytes (1.4-6.9) Basophils # (0-0.4) D-Dimer (215-500) ng/mL Sodium 139 (137-145) mmol/L Potassium 3.7 (3.5-5.1) mmol/L Chloride 102 (98-107) mmol/L Carbon Dioxide 26 (22-30) mmol/L Anion Gap 14.7 (5-15) MEQ/L BUN 16 (7-17) mg/dL Creatinine 1.07 H (0.52-1.04) mg/dL Estimated GFR 53.4 ML/MIN Glucose 131 H (74-106) mg/dL Lactic Acid 1.7 (0.4-2.0) Calcium 10.2 (8.4-10.2) mg/dL Magnesium (1.6-2.3) mg/dL Total Bilirubin 0.50 (0.2-1.3) mg/dL AST 27 (14-36) U/L ALT 14 (0-35) U/L Alkaline Phosphatase 78 (38-126) U/L Troponin I (0.000-0.034) ng/mL NT-Pro-B Natriuret Pep (0-900) pg/mL Serum Total Protein 7.2 (6.3-8.2) g/dL Albumin 4.4 (3.5-5.0) g/dL Lipase (23-300) U/L Urine Color STRAW (YELLOW) Urine Appearance CLEAR (CLEAR) Urine pH 6.0 (5-6) Ur Specific [place] 1.008 (1.005-1.025) Urine Protein NEGATIVE (Negative) Urine Ketones NEGATIVE (NEGATIVE) Urine Blood NEGATIVE (0-5) Mehrdad/ul Urine Nitrite NEGATIVE (NEGATIVE) Urine Bilirubin NEGATIVE (NEGATIVE) Urine Urobilinogen NEGATIVE (0-1) mg/dL Ur Leukocyte Esterase TRACE (NEGATIVE) Urine WBC (Auto) 0-2 (0-5) /HPF Urine RBC (Auto) NONE (0-2) /HPF U Epithel Cells (Auto) NONE (FEW) /HPF Urine Bacteria (Auto) NONE (NEGATIVE) /HPF Urine Mucus (Auto) SLIGHT (NEGATIVE) /HPF Urine Culture Reflexed NO (NO) Urine Glucose NEGATIVE (NEGATIVE) mg/dL 05/24/20 05/24/20 05/24/20 Range/Units 11:50 11:50 11:50 WBC (4.0-10.5) K/mm3 RBC (4.1-5.4) M/mm3 Hgb (12.0-16.0) gm/dl Hct (35-47) % MCV (78-100) fl MCH (26-32) pg MCHC (32-36) g/dl RDW (11.5-14.0) % Plt Count (150-450) K/mm3 MPV (7.5-11.0) fl Gran % (36.0-66.0) % Eos # (Auto) (0-0.5) Absolute Lymphs (auto) (1.0-4.6) Absolute Monos (auto) (0.0-1.3) Lymphocytes % (24.0-44.0) % Monocytes % (0.0-12.0) % Eosinophils % (0.00-5.0) % Basophils % (0.0-0.4) % Absolute Granulocytes (1.4-6.9) Basophils # (0-0.4) D-Dimer 543 H* (215-500) ng/mL Sodium (137-145) mmol/L Potassium (3.5-5.1) mmol/L Chloride (98-107) mmol/L Carbon Dioxide (22-30) mmol/L Anion Gap (5-15) MEQ/L BUN (7-17) mg/dL Creatinine (0.52-1.04) mg/dL Estimated GFR ML/MIN Glucose (74-106) mg/dL Lactic Acid (0.4-2.0) Calcium (8.4-10.2) mg/dL Magnesium 2.3 (1.6-2.3) mg/dL Total Bilirubin (0.2-1.3) mg/dL AST (14-36) U/L ALT (0-35) U/L Alkaline Phosphatase (38-126) U/L Troponin I < 0.012 (0.000-0.034) ng/mL NT-Pro-B Natriuret Pep 356 (0-900) pg/mL Serum Total Protein (6.3-8.2) g/dL Albumin (3.5-5.0) g/dL Lipase 212 (23-300) U/L Urine Color (YELLOW) Urine Appearance (CLEAR) Urine pH (5-6) Ur Specific [place] (1.005-1.025) Urine Protein (Negative) Urine Ketones (NEGATIVE) Urine Blood (0-5) Mehrdad/ul Urine Nitrite (NEGATIVE) Urine Bilirubin (NEGATIVE) Urine Urobilinogen (0-1) mg/dL Ur Leukocyte Esterase (NEGATIVE) Urine WBC (Auto) (0-5) /HPF Urine RBC (Auto) (0-2) /HPF U Epithel Cells (Auto) (FEW) /HPF Urine Bacteria (Auto) (NEGATIVE) /HPF Urine Mucus (Auto) (NEGATIVE) /HPF Urine Culture Reflexed (NO) Urine Glucose (NEGATIVE) mg/dL 05/24/20 Range/Units 11:50 WBC 6.8 (4.0-10.5) K/mm3 RBC 3.99 L (4.1-5.4) M/mm3 Hgb 12.3 (12.0-16.0) gm/dl Hct 39.8 (35-47) % MCV 99.7 (78-100) fl MCH 30.8 (26-32) pg MCHC 30.9 L (32-36) g/dl RDW 13.5 (11.5-14.0) % Plt Count 283 (150-450) K/mm3 MPV 12.0 H (7.5-11.0) fl Gran % 70.1 H (36.0-66.0) % Eos # (Auto) 0.18 (0-0.5) Absolute Lymphs (auto) 1.02 (1.0-4.6) Absolute Monos (auto) 0.75 (0.0-1.3) Lymphocytes % 15.0 L (24.0-44.0) % Monocytes % 11.0 (0.0-12.0) % Eosinophils % 2.7 (0.00-5.0) % Basophils % 1.2 (0.0-0.4) % Absolute Granulocytes 4.76 (1.4-6.9) Basophils # 0.08 (0-0.4) D-Dimer (215-500) ng/mL Sodium (137-145) mmol/L Potassium (3.5-5.1) mmol/L Chloride (98-107) mmol/L Carbon Dioxide (22-30) mmol/L Anion Gap (5-15) MEQ/L BUN (7-17) mg/dL Creatinine (0.52-1.04) mg/dL Estimated GFR ML/MIN Glucose (74-106) mg/dL Lactic Acid (0.4-2.0) Calcium (8.4-10.2) mg/dL Magnesium (1.6-2.3) mg/dL Total Bilirubin (0.2-1.3) mg/dL AST (14-36) U/L ALT (0-35) U/L Alkaline Phosphatase (38-126) U/L Troponin I (0.000-0.034) ng/mL NT-Pro-B Natriuret Pep (0-900) pg/mL Serum Total Protein (6.3-8.2) g/dL Albumin (3.5-5.0) g/dL Lipase (23-300) U/L Urine Color (YELLOW) Urine Appearance (CLEAR) Urine pH (5-6) Ur Specific [place] (1.005-1.025) Urine Protein (Negative) Urine Ketones (NEGATIVE) Urine Blood (0-5) Mehrdad/ul Urine Nitrite (NEGATIVE) Urine Bilirubin (NEGATIVE) Urine Urobilinogen (0-1) mg/dL Ur Leukocyte Esterase (NEGATIVE) Urine WBC (Auto) (0-5) /HPF Urine RBC (Auto) (0-2) /HPF U Epithel Cells (Auto) (FEW) /HPF Urine Bacteria (Auto) (NEGATIVE) /HPF Urine Mucus (Auto) (NEGATIVE) /HPF Urine Culture Reflexed (NO) Urine Glucose (NEGATIVE) mg/dL - Progress Progress: improved, re-examined Air Movement: good Progress Note: 05/24/20 14:43 74 years old with recent COVID-19, COPD needing oxygen, recently diagnosed sleep apnea not on CPAP yet, anxiety presented in the ER with waking up in the middle of night with shaking in the arms and some shortness of breath early in the morning with nausea. She is not in any distress currently maintaining oxygen saturation around 98% on 2 L. Not tachypneic or tachycardic. EKG did not show any acute ischemic changes and has negative troponins. I have obtained D-dimer which are in the 500s and is age-adjusted negative. Do not think she needs CTA. Chest x-ray negative for any acute cardiopulmonary findings. Patient does have anxiety and her symptoms improved with taking Xanax. Could be having some side effects from inhalers. Recommended continue with Xanax regularly and outpatient follow-up. Do not think cardiac in nature at all and do not think needs second troponin as patient symptoms been going on for quite some time and one negative troponin rules it out. It is quite possible she is waking up in the middle of night because of obstructive sleep apnea problem. Discussed signs symptoms of worsening needing return to ER which she seems understanding. Stable for discharge. Blood Culture(s) Obtained: No Antibiotics given: No Counseled pt/family regarding: lab results, diagnosis, need for follow-up, rad results - Departure Departure Disposition: Home Clinical Impression: Anxiety COPD (chronic obstructive pulmonary disease) Qualifiers: COPD type: unspecified COPD Qualified Code(s): J44.9 - Chronic obstructive pulmonary disease, unspecified Condition: Stable Critical Care Time: No Referrals: RAMONA HARDING MD [Primary Care Provider] - (In 2 days for reevaluation.) Instructions: Chronic Obstructive Pulmonary Disease, Shortness of Breath (Dyspnea) (DC) Additional Instructions: Continue with Symbicort and use rescue inhaler as needed. Use your Xanax regularly. Follow-up with primary care physician for reevaluation. Use oxygen as recommended. Return to ER for worsening work of breathing/cough or if develop fever chills/chest pain etc.
[2020-05-24 15:06] VITALS: BP 143/68; O2SAT 96
== END 2020-05-24 15:05 | disposition home or self-care (01) ==
LOC: ED 11:13
DX: F41.9 Anxiety disorder, unspecified (principal); J44.9 Chronic obstructive pulmonary disease, unspecified; G47.30 Sleep apnea, unspecified; F51.9 Sleep disorder not due to a substance or known physiological condition, unspecified; R06.02 Shortness of breath; Z79.899 Other long term (current) drug therapy; I10 Essential (primary) hypertension
CPT/HCPCS: 36000; 36415; 71045; 80053; 81001; 83605; 83690; 83735; 83880; 84484; 85025; 85379; 93005; 93041; 94640; 99284; A9270-GY

== ENCOUNTER 2021-03-25 19:30 | Emergency (ER) | payer MEDICARE, OTHER ==
[2021-03-25] MEDS ORDERED: XYLOCAINE 1% HCL 20 ML MDV IJ ONE (19:31)
[2021-03-25 19:47] LABS: Appearance CLEAR (CLEAR); Bilirubin NEGATIVE (NEGATIVE); Blood NEGATIVE Ery/ul (0-5); Epithelial Cells RARE /HPF (FEW); Glucose NEGATIVE (NEGATIVE); Ketones NEGATIVE (NEGATIVE); Leukocyte Esterase SMALL (NEGATIVE); Mucus SLIGHT /HPF (NEGATIVE); Nitrite NEGATIVE (NEGATIVE); Protein,Urine Dip NEGATIVE (Negative); RBC 0-2 /HPF (0-2); Specific Gravity 1.011 (1.005-1.025); Urobilinogen NEGATIVE mg/dL (0-1)
[2021-03-25] MEDS ORDERED: Rocephin 500 MG INJ IM ONE (20:19)
--- NOTE | 2021-03-25 20:30 | ERPHSYRPT ---
- History of Present Illness Time Seen by Provider: 03/25/21 19:40 Historian: patient Exam Limitations: no limitations Patient Subjective Stated Complaint: "My side hurts and it hurts when I pee." Triage Nursing Assessment: Pt reported being treated in January 2021 for a yeast infection. Since then, she reported intermittent dysuria, frequency, and hesitation. Tonight, she developed left sided flank/abdomen pain. Denied headache, dizziness, chest pain, shortness of breath, N/V/D. Symmetrical chest expansion. Heart tones S1/S2 RRR without extra sounds. Lungs vesicular with adequate airflow. Patient is on supplemental oxygen 2 L/min via [place] with she wears PRN for COPD. Abdomen obese non-distended, non-surgical, and without peritoneal signs. Bowel sounds present in all quadrants. No CVA tenderness. No voluntary/involuntary guarding. No palpable organomegaly/pulsatile masses. Peripheral pulses +3 bilateral. Physician History: Patient is a 75-year-old female presents to emergency department with complaints of left flank pain and urinary symptomology. Patient states left flank pain started this evening. Patient has been experiencing dysuria urinary frequency and hesitancy since January. Subjective fevers. No nausea or vomiting. No diarrhea. No rash. Symptoms are constant. Symptoms are moderate in intensity. No specific worsening or improving factors. Patient voices no other complaints or concerns at this time. Timing/Duration: today Activities at Onset: none Quality: aching Abdominal Pain Onset Location: flank (Left flank) Pain Radiation: no radiation Severity of Pain-Max: moderate Severity of Pain-Current: mild Modifying Factors: Improves With: nothing Associated Symptoms: denies symptoms Previous symptoms: no prior history Allergies/Adverse Reactions: codeine [Codeine] Allergy (Severe, Verified 03/25/21 19:41) Nausea morphine Allergy (Intermediate, Verified 03/25/21 19:41) Vomiting olmesartan medoxomil [From Benicar] Allergy (Verified 03/25/21 19:41) Androgenic Anabolic Steroid Adverse Reaction (Verified 03/25/21 19:41) Home Medications: ALPRAZolam 0.25 MG [xanAX 0.25 MG] 0.5 mg PO BID PRN PRN 11/07/18 [History] Acetaminophen 325 mg [Tylenol 325 mg] 650 mg PO Q6H PRN PRN 11/07/18 [History] Amlodipine Besylate 5 mg [Norvasc 5 mg] 5 mg PO DAILY 11/07/18 [History] Ascorbic Acid 500 mg [Vitamin C 500 MG] 500 mg PO DAILY 11/07/18 [History] Aspirin EC 81 mg [Ecotrin 81 mg] 81 mg PO UD 11/07/18 [History] Ergocalciferol (Vitamin D2) [Vitamin D2] 50,000 unit PO DAILY 11/07/18 [History] Furosemide 40 mg [Lasix 40 MG] 40 mg PO DAILY 11/07/18 [History] HydrALAzine HCL 25 MG TAB [Apresoline 25 MG TABLET] 1 tab PO TID 11/07/18 [History] Metoprolol Succinate 50 mg [Toprol Xl 50 MG] 1 tab PO BID 11/07/18 [History] Potassium Chloride [K-Dur] 20 meq PO TID 11/07/18 [History] Hx Tetanus, Diphtheria Vaccination/Date Given: Yes Hx Influenza Vaccination/Date Given: No Hx Pneumococcal Vaccination/Date Given: Yes Travel Risk - International Travel Have you traveled outside of the country in past 3 weeks: No - Coronavirus Screening Are you exhibiting any of the following symptoms?: No Close contact with a COVID-19 positive Pt in past 14-21 Days: No - Vaccine Status Have you recieved a Covid-19 vaccination: No - Review of Systems Constitutional: No Symptoms, No Fever, No Chills Eyes: No Symptoms Ears, Nose, & Throat: No Symptoms Respiratory: No Symptoms, No Cough, No Dyspnea Cardiac: No Symptoms, No Chest Pain, No Edema, No Syncope Abdominal/Gastrointestinal: No Symptoms, No Abdominal Pain, No Nausea, No Vomiting, No Diarrhea Genitourinary Symptoms: No Symptoms, No Dysuria Musculoskeletal: No Symptoms, No Back Pain, No Neck Pain Skin: No Symptoms, No Rash Neurological: No Symptoms, No Dizziness, No Focal Weakness, No Sensory Changes Psychological: No Symptoms Endocrine: No Symptoms Hematologic/Lymphatic: No Symptoms Immunological/Allergic: No Symptoms All Other Systems: Reviewed and Negative - Past Medical History Pertinent Past Medical History: Yes Neurological History: No Pertinent History ENT History: No Pertinent History Cardiac History: Hypertension Respiratory History: COPD, Sleep Apnea, Other Endocrine Medical History: No Pertinent History Musculoskeletal History: Arthritis, Fractures GI Medical History: Colitis, Diverticulitis, Polyps, Irritable Bowel, Hemorrhoids History: No Pertinent History Psycho-Social History: Anxiety Female Reproductive Disorders: Fibroids Other Medical History: tonsillectomy and addenectomy (childhood), hysterectomy, L knee meniscus repair, breast cancer (L) with lumpectomy x3 (2016), R foot fracture (2006). COVID Feb 2020 - Past Surgical History Past Surgical History: Yes Neuro Surgical History: No Pertinent History Cardiac: No Pertinent History Respiratory: No Pertinent History Gastrointestinal: No Pertinent History Genitourinary: No Pertinent History Musculoskeletal: Orthopedic Surgery Female Surgical History: Hysterectomy, Tubal Ligation Other Surgical History: T&A as a child,. Feb 2019 pin removed from R wrist - Social History Smoking Status: Never smoker Exposure to second hand smoke: No Drug Use: none Patient Lives Alone: No - Nursing Vital Signs Nursing Vital Signs: Initial Vital Signs Temperature 99.4 F 03/25/21 19:30 Pulse Rate 95 H 03/25/21 19:30 Respiratory Rate 18 03/25/21 19:30 Blood Pressure 148/81 03/25/21 19:30 O2 Sat by Pulse Oximetry 96 03/25/21 19:30 Pain Scale Pain Intensity 3 - Physical Exam General Appearance: no apparent distress, alert Eye Exam: PERRL/EOMI, eyes nml inspection Ears, Nose, Throat Exam: normal ENT inspection, pharynx normal, moist mucous membranes Neck Exam: normal inspection, non-tender, supple, full range of motion Respiratory Exam: normal breath sounds, lungs clear, airway intact, No respiratory distress Cardiovascular Exam: regular rate/rhythm, normal heart sounds, normal peripheral pulses Gastrointestinal/Abdomen Exam: soft, other (Mild tenderness palpation left flank.), No tenderness, No mass Back Exam: normal inspection, normal range of motion, No CVA tenderness, No vertebral tenderness Extremity Exam: normal inspection, normal range of motion, pelvis stable Neurologic Exam: alert, oriented x 3, cooperative, normal mood/affect, nml cerebellar function, sensation nml, No motor deficits Skin Exam: normal color, warm, dry Lymphatic Exam: No adenopathy SpO2 Interpretation: normal SpO2: 96 O2 Delivery: Room Air - Course Nursing assessment & vital signs reviewed: Yes - CT Exams Abdomen/Pelvis CT Interpretation: Tele-radiologist Report (No comps. Negative renal stone. No evidence of obstructive uropathy. Diffuse colonic diverticulosis with mild di verticulitis proximal descending colon with free fluid. Moderate hiatal hernia with partial intrathoracic stomach and hepatic cysts largest 2.3 cm) Ordered Tests: Active Orders 24 hr Category Date Time Status ABDOMEN AND PELVIS W/0 CONTRAS [CT] Stat Exams 03/25/21 19:39 Taken CBC W DIFF Stat Lab 03/25/21 21:40 Completed CMP Stat Lab 03/25/21 21:40 Completed LIPASE Stat Lab 03/25/21 21:40 Completed TROPONIN Q3H Lab 03/25/21 21:40 Completed TROPONIN Q3H Lab 03/26/21 00:00 Ordered TROPONIN Q3H Lab 03/26/21 03:00 Ordered TROPONIN Q3H Lab 03/26/21 06:00 Ordered TROPONIN Q3H Lab 03/26/21 09:00 Ordered UA W/RFX UR CULTURE Stat Lab 03/25/21 19:42 Completed Medication Summary Discontinued Medications Generic Name Dose Route Start Last Admin Trade Name Lauri PRN Reason Stop Dose Admin Acetaminophen 975 mg 03/25/21 20:37 03/25/21 21:16 Acetaminophen 325 Mg Tablet PO 03/25/21 20:38 Not Given STAT ONE Ceftriaxone Sodium 500 mg 03/25/21 20:19 03/25/21 20:37 Ceftriaxone Sodium 500 Mg Vial IM 03/25/21 20:20 500 mg STAT ONE Administration Ceftriaxone Sodium Confirm 03/25/21 20:34 Ceftriaxone Sodium 500 Mg Vial Administered 03/25/21 20:35 Dose 500 mg .ROUTE .[employer]-MED ONE Lab/Rad Data: Laboratory Result Diagrams 03/25/21 21:40 03/25/21 21:40 Laboratory Results 03/25/21 03/25/21 03/25/21 Range/Units 21:40 21:40 21:40 WBC 10.4 (4.0-10.5) K/mm3 RBC 3.85 L (4.1-5.4) M/mm3 Hgb 12.3 (12.0-16.0) gm/dl Hct 37.4 (35-47) % MCV 97.1 (78-100) fl MCH 31.9 (26-32) pg MCHC 32.9 (32-36) g/dl RDW 14.2 H (11.5-14.0) % Plt Count 239 (150-450) K/mm3 MPV 11.1 H (7.5-11.0) fl Gran % 78.6 H (36.0-66.0) % Eos # (Auto) 0.19 (0-0.5) Absolute Lymphs (auto) 0.91 L (1.0-4.6) Absolute Monos (auto) 1.09 (0.0-1.3) Lymphocytes % 8.8 L (24.0-44.0) % Monocytes % 10.5 (0.0-12.0) % Eosinophils % 1.8 (0.00-5.0) % Basophils % 0.3 (0.0-0.4) % Absolute Granulocytes 8.13 H (1.4-6.9) Basophils # 0.03 (0-0.4) Sodium 137 (137-145) mmol/L Potassium 3.9 (3.5-5.1) mmol/L Chloride 101 (98-107) mmol/L Carbon Dioxide 28 (22-30) mmol/L Anion Gap 12.1 (5-15) MEQ/L BUN 19 H (7-17) mg/dL Creatinine 1.17 H (0.52-1.04) mg/dL Estimated GFR 48.1 ML/MIN Glucose 131 H (74-106) mg/dL Calcium 9.1 (8.4-10.2) mg/dL Total Bilirubin 0.70 (0.2-1.3) mg/dL AST 27 (14-36) U/L ALT 16 (0-35) U/L Alkaline Phosphatase 106 (38-126) U/L Troponin I < 0.012 (0.000-0.034) ng/mL Serum Total Protein 6.9 (6.3-8.2) g/dL Albumin 4.2 (3.5-5.0) g/dL Lipase 224 (23-300) U/L Urine Color (YELLOW) Urine Appearance (CLEAR) Urine pH (5-6) Ur Specific [place] (1.005-1.025) Urine Protein (Negative) Urine Ketones (NEGATIVE) Urine Blood (0-5) Mehrdad/ul Urine Nitrite (NEGATIVE) Urine Bilirubin (NEGATIVE) Urine Urobilinogen (0-1) mg/dL Ur Leukocyte Esterase (NEGATIVE) Urine WBC (Auto) (0-5) /HPF Urine RBC (Auto) (0-2) /HPF U Epithel Cells (Auto) (FEW) /HPF Urine Mucus (Auto) (NEGATIVE) /HPF Urine Culture Reflexed (NO) Urine Glucose (NEGATIVE) mg/dL 03/25/21 Range/Units 19:42 WBC (4.0-10.5) K/mm3 RBC (4.1-5.4) M/mm3 Hgb (12.0-16.0) gm/dl Hct (35-47) % MCV (78-100) fl MCH (26-32) pg MCHC (32-36) g/dl RDW (11.5-14.0) % Plt Count (150-450) K/mm3 MPV (7.5-11.0) fl Gran % (36.0-66.0) % Eos # (Auto) (0-0.5) Absolute Lymphs (auto) (1.0-4.6) Absolute Monos (auto) (0.0-1.3) Lymphocytes % (24.0-44.0) % Monocytes % (0.0-12.0) % Eosinophils % (0.00-5.0) % Basophils % (0.0-0.4) % Absolute Granulocytes (1.4-6.9) Basophils # (0-0.4) Sodium (137-145) mmol/L Potassium (3.5-5.1) mmol/L Chloride (98-107) mmol/L Carbon Dioxide (22-30) mmol/L Anion Gap (5-15) MEQ/L BUN (7-17) mg/dL Creatinine (0.52-1.04) mg/dL Estimated GFR ML/MIN Glucose (74-106) mg/dL Calcium (8.4-10.2) mg/dL Total Bilirubin (0.2-1.3) mg/dL AST (14-36) U/L ALT (0-35) U/L Alkaline Phosphatase (38-126) U/L Troponin I (0.000-0.034) ng/mL Serum Total Protein (6.3-8.2) g/dL Albumin (3.5-5.0) g/dL Lipase (23-300) U/L Urine Color YELLOW (YELLOW) Urine Appearance CLEAR (CLEAR) Urine pH 6.0 (5-6) Ur Specific [place] 1.011 (1.005-1.025) Urine Protein NEGATIVE (Negative) Urine Ketones NEGATIVE (NEGATIVE) Urine Blood NEGATIVE (0-5) Mehrdad/ul Urine Nitrite NEGATIVE (NEGATIVE) Urine Bilirubin NEGATIVE (NEGATIVE) Urine Urobilinogen NEGATIVE (0-1) mg/dL Ur Leukocyte Esterase SMALL (NEGATIVE) Urine WBC (Auto) 6-10 (0-5) /HPF Urine RBC (Auto) 0-2 (0-2) /HPF U Epithel Cells (Auto) RARE (FEW) /HPF Urine Mucus (Auto) SLIGHT (NEGATIVE) /HPF Urine Culture Reflexed NO (NO) Urine Glucose NEGATIVE (NEGATIVE) mg/dL - Progress Progress: improved Progress Note: Patient reassessed. She feels well. Patient is not in pain. No leukocytosis. Patient has a mild urinary tract infection. Patient received a dose of Rocephin in our ED. Patient requesting discharge. She prefers not to be adm itted. Patient lives alone. Case discussed with Dr. Cruz covering Dr. Dobbs. We both feel be appropriate to discharge patient home with early follow-up. A prescription for Augmentin was forwarded to patient's pharmacy. Patient agrees to follow-up with Dr. Dobbs tomorrow morning for reevaluation. Patient voices no other complaints or concerns at this time. Will discharge home. [id number] analgesics as needed Portions of this note were created with voice recognition technology. There may be grammatical, spelling, punctuation or sound alike errors 03/25/21 22:45 03/25/21 22:49 Discussed with .: Melissa Will see patient in: office Counseled pt/family regarding: lab results, diagnosis, need for follow-up, rad results - Departure Departure Disposition: Home Clinical Impression: Diverticulosis, Diverticulitis, Hiatal hernia, Hepatic cyst Condition: Stable Critical Care Time: No Referrals: FLORIDALMA BELLAMY DO [Primary Care Provider] - Follow up/PCP as directed Additional Instructions: Discharge/Care Plan LASHONDAISHA RANDHAWA was seen on 03/25/21 in the Emergency Room. The patient was counseled regarding Diagnosis,Lab results, Imaging studies, need for follow up and when to return to the Emergency Room. Prescriptions given: Discharge Note I have spoken with the patient and/or caregivers. I have explained the patient's condition, diagnosis and treatment plan based on the information available to me at this time. I have answered the patient's and/or caregiver's questions and addressed any concerns. The patient and/or caregivers have as good understanding of the patient's diagnosis, condition and treatment plan as can be expected at this point. The vital signs have been stable. The patient's condition is stable and appropriate for discharge from the emergency department. The patient will pursue further outpatient evaluation with the primary care physician or other designated or consulting physician as outlined in the discharge instructions. The patient and/or caregivers are agreeable to this plan of care and follow-up instructions have been explained in detail. The patient and/or caregivers have received these instruction. The patient/and or caregivers are aware that any significant change in condition or worsening of symptoms should prompt an immediate return to this or the closest emergency department or call 911. Prescriptions: Amox Tr/Potass Clav. 875 mg [Augmentin 875-125 Tablet] 1 each PO BID 7 Days #14 tablet
[2021-03-25] MEDS ORDERED: Rocephin 500 MG INJ ONE (20:34)
[2021-03-25] MEDS ORDERED: TYLENOL 325 MG PO ONE (20:37)
[2021-03-25 22:05] LABS: Absolute Neutrophil Ct (ANC) 8.13 (1.4-6.9); Basophil (Absolute #) 0.03 (0-0.4); Eosinophil % 1.8 % (0.00-5.0); Eosinophil (Absolute #) 0.19 (0-0.5); Hematocrit 37.4 % (35-47); Hemoglobin 12.3 gm/dl (12.0-16.0); Lymphocyte (Absolute #) 0.91 (1.0-4.6); Lymphocytes % 8.8 % (24.0-44.0); Mean Cell Volume 97.1 fl (78-100); Mean Corpuscular Hemoglobin 31.9 pg (26-32); Mean Corpuscular Hgb Concent. 32.9 g/dl (32-36); Mean Platelet Volume 11.1 fl (7.5-11.0); Monocyte (Absolute #) 1.09 (0.0-1.3); Monocytes % 10.5 % (0.0-12.0); Neutrophil % 78.6 % (36.0-66.0); Platelet Count 239 K/mm3 (150-450); Red Blood Count 3.85 M/mm3 (4.1-5.4); Red Cell Distribution Width 14.2 % (11.5-14.0); White Blood Count 10.4 K/mm3 (4.0-10.5)
[2021-03-25 22:19] LABS: ALBUMIN 4.2 g/dL (3.5-5.0); ANION GAP 12.1 MEQ/L (5-15); BILIRUBIN,TOTAL 0.7 mg/dL (0.2-1.3); Calcium 9.1 mg/dL (8.4-10.2); Creatinine 1 1.17 mg/dL (0.52-1.04); EST GLOMERULAR FILTRATION RATE 48.1 ML/MIN; Potassium 3.9 mmol/L (3.5-5.1); Total Protein 6.9 g/dL (6.3-8.2)
[2021-03-25 23:09] VITALS: BP 143/83; PULSE 78; O2SAT 98
--- NOTE | 2021-03-26 08:49 | XRAY ---
Indication: Left flank pain, headache, and fever. Renal stone versus UTI. Multiple contiguous images obtained through the abdomen and pelvis without contrast using renal stone protocol. Comparison: None Lung bases demonstrates minimal bibasilar subsegmental atelectasis/scarring. No infiltrate or effusion. Heart not enlarged. Moderate-sized hiatal hernia with partial intrathoracic stomach. No renal calculus or evidence for obstructive uropathy in either system. Left upper kidney demonstrates two 1 cm round exophytic lesions slightly increased in attenuation, possible complex viscus cysts with masses not completely excluded on this noncontrast exam. Previous hysterectomy. Noncontrasted stomach and bowel loops appear nonobstructed with normal appendix. Mild scattered colonic diverticulosis greatest in the sigmoid. Mid to proximal descending colon demonstrates moderate pericolonic stranding favoring diverticulitis with small free fluid in the colic gutter. No walled off fluid collection or free air. Liver demonstrates a few cysts, largest in the right lobe measuring 2.4 cm. Remaining liver, gallbladder, pancreas, spleen, adrenal glands, kidneys, ureters, and bladder are unremarkable for noncontrast exam. Minimal scattered aortic calcifications without AAA. Osseous structures intact with osteopenia, minimal levoscoliosis centered at L3, moderate L3-S1 degenerative disc disease, and remote L4 superior endplate fracture with approximately 25% height loss. Impression: 1. Negative renal calculus or evidence for obstructive uropathy. 2. Diffuse scattered colonic diverticulosis with descending diverticulitis and small free fluid. 3. Small left renal slightly dense exophytic lesions, possible complex viscus cysts. CT or MRI with contrast exam may yield further information. 4. Hiatal hernia with partial intrathoracic stomach and chronic bony findings.
== END 2021-03-25 23:05 | disposition home or self-care (01) ==
LOC: ED 19:30
DX: K57.30 Diverticulosis of large intestine without perforation or abscess without bleeding (principal); K57.32 Diverticulitis of large intestine without perforation or abscess without bleeding; K44.9 Diaphragmatic hernia without obstruction or gangrene; K76.89 Other specified diseases of liver; R10.9 Unspecified abdominal pain; R30.0 Dysuria; R35.0 Frequency of micturition; I10 Essential (primary) hypertension; J44.9 Chronic obstructive pulmonary disease, unspecified; K58.9 Irritable bowel syndrome, unspecified; Z86.16 Personal history of COVID-19; Z79.899 Other long term (current) drug therapy; N39.0 Urinary tract infection, site not specified
CPT/HCPCS: 36415; 74176; 80053; 81001; 83690; 84484; 85025; 96372; 99284; J0696

== ENCOUNTER 2021-03-28 13:38 | Emergency (ER) | payer MEDICARE, OTHER ==
[2021-03-28] MEDS ORDERED: solu-MEDROL 125 MG, Sterile H2O 10 ml 2 ML IV ONE ×2 (14:06)
[2021-03-28] MEDS ORDERED: BENADRYL 50 MG/ML IV ONE (14:06)
[2021-03-28] MEDS ORDERED: Pepcid 20 MG VIAL IV ONE ×2 (14:06→14:18)
[2021-03-28] MEDS ORDERED: PROVENTIL 2.5 MG/3 ML NEB IH ONE ×2 (14:07→14:30)
[2021-03-28] MEDS ORDERED: DUONEB 0.5-3 MG/3 ml Neb IH ONE (14:11)
[2021-03-28] MEDS ORDERED: Sterile H2O 10 ml IJ ONE (14:18)
[2021-03-28] MEDS ORDERED: solu-MEDROL ONE (14:18)
[2021-03-28] MEDS ORDERED: BENADRYL 50 MG/ML ONE (14:18)
--- NOTE | 2021-03-28 14:39 | ERPHSYRPT ---
- History of Present Illness Time Seen by Provider: 03/28/21 13:46 Source: patient Exam Limitations: no limitations Patient Subjective Stated Complaint: pt here for a possible reaction to her medication given to her on 03/25/21. Triage Nursing Assessment: pt walked in, with home o2 at 2 lnc, resp easy, face mask in place, she states she had swelling of bottom lip and burning of mouth after taking med Physician History: 75 years old female with history of chronic respiratory failure secondary to COPD on 2 L oxygen, was evaluated 3 days ago for abdominal pain, diagnosed with UTI, diverticulitis was started on Augmentin presented in the ER with chief complaint of lip swelling, mild swelling of tongue and mouth every time she takes Augmentin. It lasted for couple of hours and started to improve. She does have chronic difficulty breathing which is not any worse than usual. She took her medication this morning and had similar symptoms. She is on 2 L with oxygen saturation around 97%. Not in any distress. Timing/Duration: day(s) (2), intermittent, worse Severity: moderate Modifying Factors: Improves With: other Associated Symptoms: shortness of breath Allergies/Adverse Reactions: codeine [Codeine] Allergy (Severe, Verified 03/28/21 13:42) Nausea morphine Allergy (Intermediate, Verified 03/28/21 13:42) Vomiting olmesartan medoxomil [From Benicar] Allergy (Verified 03/28/21 13:42) Androgenic Anabolic Steroid Adverse Reaction (Verified 03/28/21 13:42) Home Medications: ALPRAZolam 0.25 MG [xanAX 0.25 MG] 0.5 mg PO BID PRN PRN 11/07/18 [History] Acetaminophen 325 mg [Tylenol 325 mg] 650 mg PO Q6H PRN PRN 11/07/18 [History] Amlodipine Besylate 5 mg [Norvasc 5 mg] 5 mg PO DAILY 11/07/18 [History] Ascorbic Acid 500 mg [Vitamin C 500 MG] 500 mg PO DAILY 11/07/18 [History] Aspirin EC 81 mg [Ecotrin 81 mg] 81 mg PO UD 11/07/18 [History] Ergocalciferol (Vitamin D2) [Vitamin D2] 50,000 unit PO DAILY 11/07/18 [History] Furosemide 40 mg [Lasix 40 MG] 40 mg PO DAILY 11/07/18 [History] HydrALAzine HCL 25 MG TAB [Apresoline 25 MG TABLET] 1 tab PO TID 11/07/18 [History] Metoprolol Succinate 50 mg [Toprol Xl 50 MG] 1 tab PO BID 11/07/18 [History] Potassium Chloride [K-Dur] 20 meq PO TID 11/07/18 [History] Hx Tetanus, Diphtheria Vaccination/Date Given: Yes Hx Influenza Vaccination/Date Given: No Hx Pneumococcal Vaccination/Date Given: Yes Immunizations Up to Date: Yes Travel Risk - International Travel Have you traveled outside of the country in past 3 weeks: No - Coronavirus Screening Are you exhibiting any of the following symptoms?: No - Vaccine Status Have you recieved a - vaccination: No - Review of Systems Constitutional: No Symptoms Eyes: No Symptoms Ears, Nose, & Throat: Mouth Swelling, Throat Swelling Respiratory: Dyspnea Cardiac: No Symptoms Abdominal/Gastrointestinal: No Symptoms Musculoskeletal: No Symptoms Skin: No Symptoms Neurological: No Symptoms Psychological: No Symptoms Endocrine: No Symptoms Hematologic/Lymphatic: No Symptoms Immunological/Allergic: No Symptoms - Past Medical History Pertinent Past Medical History: Yes Neurological History: No Pertinent History ENT History: No Pertinent History Cardiac History: Hypertension Respiratory History: COPD, Sleep Apnea, Other Endocrine Medical History: No Pertinent History Musculoskeletal History: Arthritis, Fractures GI Medical History: Colitis, Diverticulitis, Polyps, Irritable Bowel, Hemorrhoids History: No Pertinent History Psycho-Social History: Anxiety Female Reproductive Disorders: Fibroids Other Medical History: tonsillectomy and addenectomy (childhood), hysterectomy, L knee meniscus repair, breast cancer (L) with lumpectomy x3 (2016), R foot fracture (2006). COVID Feb 2020 - Past Surgical History Past Surgical History: Yes Neuro Surgical History: No Pertinent History Cardiac: No Pertinent History Respiratory: No Pertinent History Gastrointestinal: No Pertinent History Genitourinary: No Pertinent History Musculoskeletal: Orthopedic Surgery Female Surgical History: Hysterectomy, Tubal Ligation Other Surgical History: T&A as a child,. Feb 2019 pin removed from R wrist - Social History Smoking Status: Never smoker Exposure to second hand smoke: No Drug Use: none Patient Lives Alone: No - Female History Hx Last Menstrual Period: pre - Nursing Vital Signs Nursing Vital Signs: Initial Vital Signs Temperature 98.4 F 03/28/21 13:40 Pulse Rate 101 H 03/28/21 13:40 Respiratory Rate 18 03/28/21 13:40 Blood Pressure 130/75 03/28/21 13:40 O2 Sat by Pulse Oximetry 98 03/28/21 13:40 Pain Scale Pain Intensity 0 - Physical Exam General Appearance: no apparent distress, alert Eye Exam: PERRL/EOMI Ears, Nose, Throat Exam: moist mucous membranes, pharyngeal erythema, other (Minimal swelling of lower lip. Posterior pharynx well visible. No tongue swelling. No swelling floor of mouth.) Neck Exam: normal inspection, non-tender, supple, full range of motion Respiratory Exam: normal breath sounds, lungs clear Cardiovascular Exam: regular rate/rhythm, normal heart sounds Back Exam: normal inspection, normal range of motion Extremity Exam: normal inspection, normal range of motion Neurologic Exam: alert, oriented x 3, cooperative Skin Exam: normal color SpO2 Interpretation: normal SpO2: 98 O2 Delivery: Nasal Cannula Ordered Tests: Active Orders 24 hr Category Date Time Status Respiratory Therapy Assessment DAILY RT 03/28/21 14:27 Completed Medication Summary Discontinued Medications Generic Name Dose Route Start Last Admin Trade Name Lauri PRN Reason Stop Dose Admin Albuterol Sulfate 2.5 mg 03/28/21 14:07 03/28/21 14:10 Albuterol Sulfate 2.5 Mg/3 Ml Neb IH 03/28/21 14:08 2.5 mg STAT ONE Administration Albuterol Sulfate Confirm 03/28/21 14:30 Albuterol Sulfate 2.5 Mg/3 Ml Neb Administered 03/28/21 14:31 Dose 2.5 mg IH .STK-MED ONE Albuterol/Ipratropium Confirm 03/28/21 14:11 Ipratropium/Albuterol Sulfate 3 Ml Ampul.Neb Administered 03/28/21 14:12 Dose 3 ml IH .STK-MED ONE Methylprednisolone Sodium 0 mg 03/28/21 14:06 03/28/21 14:21 Succinate 125 mg/ Sterile IV 03/28/21 14:07 125 mg Water 2 ml STAT ONE Administration Diphenhydramine HCl 25 mg 03/28/21 14:06 03/28/21 14:21 Diphenhydramine Hcl 50 Mg/Ml Vial IV 03/28/21 14:07 25 mg STAT ONE Administration Diphenhydramine HCl Confirm 03/28/21 14:18 Diphenhydramine Hcl 50 Mg/Ml Vial Administered 03/28/21 14:19 Dose 50 mg .ROUTE .STK-MED ONE Famotidine 20 mg 03/28/21 14:06 03/28/21 14:21 Famotidine 20 Mg/1 Vial IV 03/28/21 14:07 20 mg STAT ONE Administration Famotidine Confirm 03/28/21 14:18 Famotidine 20 Mg/1 Vial Administered 03/28/21 14:19 Dose 20 mg IV .STK-MED ONE Methylprednisolone Sodium Succinate Confirm 03/28/21 14:18 Methylprednis Sod Succ 125 Mg/2 Ml Vial Administered 03/28/21 14:19 Dose 125 mg .ROUTE .STK-MED ONE Sterile Water Confirm 03/28/21 14:18 Water For Injection,Sterile 10 Ml Vial Administered 03/28/21 14:19 Dose 10 ml IJ .STK-MED ONE - Progress Progress: improved Progress Note: 03/28/21 15:33 Does not have any obvious difficulty breathing and maintaining oxygen saturation on 2 L which she normally is on around 97%. Given Solu-Medrol, Benadryl, Pepcid and albuterol neb treatment, on reevaluation her swelling is improved. Do not think she needs imaging or any work-up. I have recommended stopping Augmentin and starting Levaquin and Flagyl for diverticulitis and will give steroid/Benadryl/Pepcid as well. Outpatient follow-up recommended. Discussed signs symptoms of worsening needing return to ER which she seems understanding. Counseled pt/family regarding: diagnosis, need for follow-up - Departure Departure Disposition: Home Clinical Impression: Allergic reaction Condition: Stable Critical Care Time: No Referrals: FLORIDALMA BELLAMY DO [Primary Care Provider] - Follow up/PCP as directed (In 2 days for reevaluation) Instructions: Anaphylaxis (DC), Adverse Drug Reactions, Adult (DC) Additional Instructions: Use EpiPen as needed. Follow-up with primary care physician for reevaluation. Return to ER for any worsening swelling, difficulty breathing etc. stop taking Augmentin and start Levaquin/Flagyl. Prescriptions: Diphenhydramine HCl 25 mg [Benadryl 25 mg Capsule] 25 mg PO Q4H PRN PRN #20 cap PRN Reason: Allergies Prednisone 20 mg [Deltasone 20 mg] 60 mg PO DAILY 5 Days #15 tablet Metronidazole 500 mg [Flagyl 500 MG] 500 mg PO TID #21 tablet Levofloxacin [Levaquin 500 MG Tablet] 500 mg PO DAILY #7 tablet Famotidine 20 mg [Pepcid 20 MG] 20 mg PO BID #10 tablet EPINEPHrine [Symjepi] 0.3 mg IJ DIRECTIONS UNKNOWN PRN 1 Days #1 unit PRN Reason: Allergies
[2021-03-28 15:09] VITALS: BP 146/88; PULSE 87
[2021-03-28 15:41] VITALS: O2SAT 98
== END 2021-03-28 15:57 | disposition home or self-care (01) ==
LOC: ED 13:38
DX: R60.0 Localized edema (principal); T36.0X5A Adverse effect of penicillins, initial encounter; T36.1X5A Adverse effect of cephalosporins and other beta-lactam antibiotics, initial encounter; J96.10 Chronic respiratory failure, unspecified whether with hypoxia or hypercapnia; Z99.81 Dependence on supplemental oxygen; J44.9 Chronic obstructive pulmonary disease, unspecified; I10 Essential (primary) hypertension; K57.92 Diverticulitis of intestine, part unspecified, without perforation or abscess without bleeding; Z86.16 Personal history of COVID-19; Z79.52 Long term (current) use of systemic steroids; Z79.899 Other long term (current) drug therapy
CPT/HCPCS: 36000; 94640; 96374; 96375; 99284; J1200; J2930; J7609; A9270-GY

== ENCOUNTER 2021-10-16 20:01 | Emergency (ER) | payer MEDICARE, OTHER ==
[2021-10-16] MEDS ORDERED: TYLENOL 325 MG PO STA (20:26)
[2021-10-16] MEDS ORDERED: TYLENOL 325 MG ONE (20:29)
--- NOTE | 2021-10-16 20:37 | ERPHSYRPT ---
- History of Present Illness Time Seen by Provider: 10/16/21 20:14 Source: patient Exam Limitations: no limitations Patient Subjective Stated Complaint: I just finished mowing the yard and was putting everything back and I rolled my right ankle and went down on my left kne e. Triage Nursing Assessment: Pt ambulated back into ER using crutches. Pt was mowing this evening and had just finished and was putting everything back when she rolled her right ankle and fell on her left knee. Left knee is swollen, has a few bruises to left lower leg and small scrape to left knee. Physician History: 76-year-old female presented in the ER with chief complaint of left knee and upper leg pain and swelling after she twisted her right ankle and fell on left knee. Did not hit her head, no loss of consciousness. Complaining of mild to moderate pain with swelling in the upper tibia. Moderate pain with ambulation. No ankle pain. No injury anywhere else. Method of Injury: fell, twisted Occurred: just prior to arrival Quality: sharpness Severity of Pain-Max: moderate Severity of Pain-Current: mild Lower Extremities Pain: leg: left, knee: left Modifying Factors: Improves With: immobilization. Worsens With: movement Allergies/Adverse Reactions: codeine [Codeine] Allergy (Severe, Verified 10/16/21 20:20) Nausea morphine Allergy (Intermediate, Verified 10/16/21 20:20) Vomiting olmesartan medoxomil [From Benicar] Allergy (Verified 10/16/21 20:20) acetaminophen [From Vicodin] Adverse Reaction (Verified 10/16/21 20:24) Vomiting bad for kidney condition amoxicillin Adverse Reaction (Verified 10/16/21 20:24) Difficulty Breathing Androgenic Anabolic Steroid Adverse Reaction (Verified 10/16/21 20:20) dexamethasone Adverse Reaction (Verified 10/16/21 20:24) increased b/p hydrocodone [From Vicodin] Adverse Reaction (Verified 10/16/21 20:24) Vomiting bad for kidney condition losartan Adverse Reaction (Verified 10/16/21 20:24) Rash methylprednisolone Adverse Reaction (Verified 10/16/21 20:24) Muscle Aches sulfamethoxazole [From Bactrim] Adverse Reaction (Verified 10/16/21 20:24) bad for kidney condition trimethoprim [From Bactrim] Adverse Reaction (Verified 10/16/21 20:24) bad for kidney condition Home Medications: ALPRAZolam 0.25 MG [xanAX 0.25 MG] 0.5 mg PO BID PRN PRN 11/07/18 [History] Acetaminophen 325 mg [Tylenol 325 mg] 650 mg PO Q6H PRN PRN 11/07/18 [History] Amlodipine Besylate 5 mg [Norvasc 5 mg] 5 mg PO DAILY 11/07/18 [History] Ascorbic Acid 500 mg [Vitamin C 500 MG] 500 mg PO DAILY 11/07/18 [History] Aspirin EC 81 mg [Ecotrin 81 mg] 81 mg PO UD 11/07/18 [History] Ergocalciferol (Vitamin D2) [Vitamin D2] 50,000 unit PO DAILY 11/07/18 [History] Furosemide 40 mg [Lasix 40 MG] 40 mg PO DAILY 11/07/18 [History] HydrALAzine HCL 25 MG TAB [Apresoline 25 MG TABLET] 1 tab PO TID 11/07/18 [History] Metoprolol Succinate 50 mg [Toprol Xl 50 MG] 1 tab PO BID 11/07/18 [History] Potassium Chloride [K-Dur] 20 meq PO TID 11/07/18 [History] Hx Tetanus, Diphtheria Vaccination/Date Given: Yes Hx Influenza Vaccination/Date Given: No Hx Pneumococcal Vaccination/Date Given: Yes Immunizations Up to Date: Yes Travel Risk - International Travel Have you traveled outside of the country in past 3 weeks: No - Coronavirus Screening Are you exhibiting any of the following symptoms?: No Close contact with a COVID-19 positive Pt in past 14-21 Days: No - Vaccine Status Have you recieved a Covid-19 vaccination: No - Review of Systems Constitutional: No Symptoms Eyes: No Symptoms Ears, Nose, & Throat: No Symptoms Respiratory: No Symptoms Cardiac: No Symptoms Abdominal/Gastrointestinal: No Symptoms Genitourinary Symptoms: No Symptoms Musculoskeletal: Fall, Injury, Joint Pain, Joint Swelling Neurological: No Symptoms Endocrine: No Symptoms Hematologic/Lymphatic: No Symptoms Immunological/Allergic: No Symptoms - Past Medical History Pertinent Past Medical History: Yes Neurological History: No Pertinent History ENT History: No Pertinent History Cardiac History: Hypertension Respiratory History: COPD, Sleep Apnea, Other Endocrine Medical History: No Pertinent History Musculoskeletal History: Arthritis, Fractures GI Medical History: Colitis, Diverticulitis, Polyps, Irritable Bowel, Hemorrhoids History: Renal Disease Psycho-Social History: Anxiety Female Reproductive Disorders: Fibroids Other Medical History: tonsillectomy and addenectomy (childhood), hysterectomy, L knee meniscus repair, breast cancer (L) with lumpectomy x3 (2015), R foot fracture (2006). COVID Feb 2020 - Past Surgical History Past Surgical History: Yes Neuro Surgical History: No Pertinent History Cardiac: No Pertinent History Respiratory: No Pertinent History Gastrointestinal: No Pertinent History Genitourinary: No Pertinent History Musculoskeletal: Orthopedic Surgery Female Surgical History: Hysterectomy, Tubal Ligation Other Surgical History: T&A as a child,. Feb 2019 pin removed from R wrist. L knee meniscus repair, breast cancer (L) with lumpectomy x3 (2015) - Social History Smoking Status: Never smoker Exposure to second hand smoke: No Drug Use: none Patient Lives Alone: Yes - Nursing Vital Signs Nursing Vital Signs: Initial Vital Signs Temperature 99.0 F 10/16/21 20:01 Pulse Rate 74 10/16/21 20:01 Respiratory Rate 18 10/16/21 20:01 Blood Pressure 130/90 10/16/21 20:01 O2 Sat by Pulse Oximetry 94 L 10/16/21 20:01 Pain Scale Pain Intensity 5 - Physical Exam General Appearance: no apparent distress, alert Eyes, Ears, Nose, Throat Exam: normal ENT inspection Neck Exam: normal inspection, full range of motion Cardiovascular/Respiratory Exam: normal breath sounds, regular rate/rhythm Gastrointestinal/Abdominal Exam: soft Back Exam: normal inspection Hips Exam: bilateral: non-tender, normal inspection, normal range of motion Knees Exam: right knee: non-tender, normal inspection, normal range of motion, left knee: bone tenderness (Upper tibia), pain, soft tissue tenderness, swelling Ankle Exam: bilateral ankle: non-tender, normal inspection, normal range of motion, no evidence of injury Neuro/Tendon Exam: normal sensation, normal motor functions Mental Status Exam: alert, oriented x 3, cooperative Skin Exam: normal color SpO2 Interpretation: normal SpO2: 94 O2 Delivery: Room Air Ordered Tests: Active Orders 24 hr Category Date Time Status KNEE (3 VIEWS) Stat Exams 10/16/21 20:41 Taken LOWER LEG Stat Exams 10/16/21 20:42 Taken Medication Summary Discontinued Medications Generic Name Dose Route Start Last Admin Trade Name Lauri PRN Reason Stop Dose Admin Acetaminophen 975 mg 10/16/21 20:26 10/16/21 20:29 Acetaminophen 325 Mg Tablet PO 10/16/21 20:27 975 mg STAT STA Administration Acetaminophen Confirm 10/16/21 20:29 Acetaminophen 325 Mg Tablet Administered 10/16/21 20:30 Dose 975 mg .ROUTE .STK-MED ONE - Progress Progress: improved, pain not gone completely, re-examined Progress Note: 10/16/21 21:23 Tylenol for symptomatic relief. Feeling better on reevaluation. No obvious fracture dislocation on x-rays reviewed by me, official report is pending. Ritchie wrap applied. I believe patient has contusion with hematoma. Recommended intermittent ice and outpatient follow-up with orthopedic surgery. Weightbearing as tolerated. Counseled pt/family regarding: diagnosis, need for follow-up, rad results - Departure Departure Disposition: Home Clinical Impression: Fall, Contusion of knee Condition: Stable Critical Care Time: No Referrals: FLORIDALMA BELLAMY DO [Primary Care Provider] - Follow Up with PCP/3 days ORTHO - ARIANE RESENDEZ NP [NON-STAFF PHY W/O PRIVILEGES] - Follow up/PCP as directed (Early next week for reevaluation) Instructions: Knee Pain (DC) Additional Instructions: Take Tylenol as needed. Intermittent ice application. Weightbearing as tolerated. Follow-up with orthopedic surgery for reevaluation. Return to ER for increasing pain swelling difficulty movements etc.
[2021-10-16 21:35] VITALS: BP 140/78; PULSE 66; O2SAT 98
--- NOTE | 2021-10-16 22:30 | XRAY ---
Indication: Pain following fall. Comparison: None 3 view left knee demonstrates osteopenia, moderate tricompartmental degenerative changes with chondrocalcinosis, small nonspecific effusion, and tiny fabella. No other bony, articular, or soft tissue abnormalities.
--- NOTE | 2021-10-16 22:32 | XRAY ---
Indication: Pain following fall. Comparison: None 2 view left lower leg demonstrates osteopenia, Achilles tendon calcifications sequela to old injury/inflammation, moderate ankle degenerative arthropathy, and knee degenerative arthropathy reported separately. No other bony, articular, or soft tissue abnormalities.
== END 2021-10-16 21:40 | disposition home or self-care (01) ==
LOC: ED 20:01
DX: S80.02XA Contusion of left knee, initial encounter (principal); W18.39XA Other fall on same level, initial encounter; Y93.H2 Activity, gardening and landscaping; Y92.007 Garden or yard of unspecified non-institutional (private) residence as the place of occurrence of the external cause; I10 Essential (primary) hypertension; J44.9 Chronic obstructive pulmonary disease, unspecified; Z79.899 Other long term (current) drug therapy; Z28.310 Unvaccinated for COVID-19; Z86.16 Personal history of COVID-19
CPT/HCPCS: 73562; 73590; 99282; A9270-GY

== ENCOUNTER 2023-02-08 01:19 | Emergency (ER) | payer MEDICARE, OTHER ==
[2023-02-08 01:36] VITALS: TEMP 99.3
--- NOTE | 2023-02-08 02:14 | ERPHSYRPT ---
- History of Present Illness Time Seen by Provider: 02/08/23 01:25 Source: patient Exam Limitations: no limitations Patient Subjective Stated Complaint: pt reports positive covid test on 02/03/23 with symptom onset of 02/01/23, pt reports she has not receieved any treatment for the covid besides increasing fluids and rest. pt reports her eyes are red and burn, states it hurts when she coughs and she is coughing up thick mucous. pt states she sometimes wears home O2. Triage Nursing Assessment: pt is aox3, pupils perrl, afebrile, resps easy and non labored, lung sounds are diminished throughout, intermittent cough noted, cap refill < 3 seconds, radial pulses strong and equal, abd soft non tender, red, dry skin noted to bilat periorbital areas, pt skin pink warm dry. Physician History: 77 years old female with multiple medical problems including hypertension, COPD, anxiety with positive COVID-19 diagnosed 4 days ago having supportive care at home presented in the ER with complaints of coughing up thick mucus and burning of eyes and burning in the chest with coughing. Patient denies any difficulty breathing. She does have oxygen at home but does not use it normally. She is having a saturation around 94% on room air on presentation in the ER. She is not having fevers. Denies any vomiting diarrhea, feeling dizzy or lightheaded. Patient wants to make sure she does not have a pneumonia. She does not want to try Paxlovid. Patient reports it feels sand in her eyes with some redness. She has not been using any lubricants/artificial tears. Allergies/Adverse Reactions: codeine [Codeine] Allergy (Severe, Verified 02/08/23 01:37) Nausea morphine Allergy (Intermediate, Verified 02/08/23 01:37) Vomiting olmesartan medoxomil [From Benicar] Allergy (Verified 02/08/23 01:37) acetaminophen [From Vicodin] Adverse Reaction (Verified 02/08/23 01:37) Vomiting bad for kidney condition amoxicillin Adverse Reaction (Verified 02/08/23 01:37) Difficulty Breathing Androgenic Anabolic Steroid Adverse Reaction (Verified 02/08/23 01:37) dexamethasone Adverse Reaction (Verified 02/08/23 01:37) increased b/p hydrocodone [From Vicodin] Adverse Reaction (Verified 02/08/23 01:37) Vomiting bad for kidney condition losartan Adverse Reaction (Verified 02/08/23 01:37) Rash methylprednisolone Adverse Reaction (Verified 02/08/23 01:37) Muscle Aches sulfamethoxazole [From Bactrim] Adverse Reaction (Verified 02/08/23 01:37) bad for kidney condition trimethoprim [From Bactrim] Adverse Reaction (Verified 02/08/23 01:37) bad for kidney condition Home Medications: ALPRAZolam 0.25 MG [xanAX 0.25 MG] 0.5 mg PO BID PRN PRN 11/07/18 [History] Acetaminophen 325 mg [Tylenol 325 mg] 650 mg PO Q6H PRN PRN 11/07/18 [History] Amlodipine Besylate 5 mg [Norvasc 5 mg] 5 mg PO DAILY 11/07/18 [History] Aspirin EC 81 mg [Ecotrin 81 mg] 81 mg PO UD 11/07/18 [History] Ergocalciferol (Vitamin D2) [Vitamin D2] 50,000 unit PO DAILY 11/07/18 [History] Furosemide 40 mg [Lasix 40 MG] 40 mg PO DAILY 11/07/18 [History] HydrALAzine HCL 25 MG TAB [Apresoline 25 MG TABLET] 50 mg PO TID 11/07/18 [History] Metoprolol Succinate 50 mg [Toprol Xl 50 MG] 1 tab PO BID 11/07/18 [History] Anastrozole 1 mg PO DAILY 02/08/23 [History] Budesonide/Formoterol Fumarate [Budesonide-Formoterol 160-4.5] 2 puffs IH BID 02/08/23 [History] Calcium Carb, Citrate/Vit D3 [Calcium + D3 ER Tablet] 1 each PO DAILY 02/08/23 [History] Clotrimazole Cream 30 gm [Lotrimin Cream 30 gm] 1 dose TOP BID PRN 02/08/23 [History] Cyanocobalamin (Vitamin B-12) [Vitamin B-12] 5,000 mcg PO DAILY 02/08/23 [History] Magnesium Oxide 400 mg [Mag-Ox 400] 400 mg PO DAILY 02/08/23 [History] Potassium Chloride [Klor-Con M20] 20 meq PO TID 02/08/23 [History] Hx Tetanus, Diphtheria Vaccination/Date Given: Yes Hx Influenza Vaccination/Date Given: Yes Hx Pneumococcal Vaccination/Date Given: Yes Immunizations Up to Date: Yes Travel Risk - International Travel Have you traveled outside of the country in past 3 weeks: No - Coronavirus Screening Are you exhibiting any of the following symptoms?: Yes Symptoms: Fever, Cough: New Onset Close contact with a COVID-19 positive Pt in past 14-21 Days: No - Vaccine Status Have you recieved a Covid-19 vaccination: No - Review of Systems Constitutional: No Symptoms Eyes: Eye Redness, Itchy, Tearing, Foreign Body Sensation Ears, Nose, & Throat: Nose Congestion, Throat Pain Respiratory: Cough Cardiac: No Symptoms Abdominal/Gastrointestinal: No Symptoms Genitourinary Symptoms: No Symptoms Musculoskeletal: Arthralgias Skin: No Symptoms Psychological: Anxiety Endocrine: No Symptoms - Past Medical History Pertinent Past Medical History: Yes Neurological History: No Pertinent History ENT History: No Pertinent History Cardiac History: Hypertension Respiratory History: COPD, Sleep Apnea, Other Endocrine Medical History: No Pertinent History Musculoskeletal History: Arthritis, Fractures GI Medical History: Colitis, Diverticulitis, Polyps, Irritable Bowel, Hemorrhoids History: Renal Disease Psycho-Social History: Anxiety Female Reproductive Disorders: Fibroids Other Medical History: tonsillectomy and addenectomy (childhood), hysterectomy, L knee meniscus repair, breast cancer (L) with lumpectomy x3 (2015), R foot fracture (2006). COVID Feb 2020 - Past Surgical History Past Surgical History: Yes Neuro Surgical History: No Pertinent History Cardiac: No Pertinent History Respiratory: No Pertinent History Gastrointestinal: No Pertinent History Genitourinary: No Pertinent History Musculoskeletal: Orthopedic Surgery Female Surgical History: Hysterectomy, Tubal Ligation Other Surgical History: T&A as a child,. Feb 2019 pin removed from R wrist. L knee meniscus repair, breast cancer (L) with lumpectomy x3 (2015) - Social History Smoking Status: Never smoker Exposure to second hand smoke: No Drug Use: none Patient Lives Alone: Yes - Nursing Vital Signs Nursing Vital Signs: Initial Vital Signs Temperature 99.3 F 02/08/23 01:26 Pulse Rate 89 02/08/23 01:26 Respiratory Rate 20 02/08/23 01:26 Blood Pressure 126/69 02/08/23 01:26 O2 Sat by Pulse Oximetry 93 L 02/08/23 01:26 Pain Scale Pain Intensity 0 - Physical Exam General Appearance: no apparent distress, alert Eye Exam: PERRL/EOMI, other (Bilateral conjunctival injection, intact range of motion.) Ears, Nose, Throat Exam: normal ENT inspection, TMs normal, moist mucous membranes, pharyngeal erythema Neck Exam: normal inspection, non-tender, supple, full range of motion Respiratory Exam: normal breath sounds, lungs clear Cardiovascular Exam: regular rate/rhythm, normal heart sounds Gastrointestinal/Abdomen Exam: soft, No tenderness Back Exam: normal inspection, normal range of motion Extremity Exam: normal inspection, pelvis stable Neurologic Exam: alert, oriented x 3, cooperative, 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, nml cerebellar function, nml station & gait, sensation nml, No depressed mood/affect (Anxious) Skin Exam: normal color SpO2 Interpretation: normal SpO2: 93 O2 Delivery: Room Air Ordered Tests: Active Orders 24 hr Category Date Time Status CHEST 1 VIEW (PORTABLE) Stat Exams 02/08/23 01:52 Taken CBC W DIFF Stat Lab 02/08/23 02:28 Completed CMP Stat Lab 02/08/23 02:28 Completed NT PRO BNPII Stat Lab 02/08/23 02:28 Completed TROPONIN Q4H Lab 02/08/23 02:28 Completed TROPONIN Q4H Lab 02/08/23 06:00 Ordered TROPONIN Q4H Lab 02/08/23 10:00 Ordered Lab/Rad Data: Laboratory Result Diagrams 02/08/23 02:28 02/08/23 02:28 Laboratory Results 02/08/23 02/08/23 02/08/23 Range/Units 02:28 02:28 02:28 WBC (4.0-10.5) x10^3/uL RBC (4.1-5.4) x10^6/uL Hgb (12.0-16.0) g/dL Hct (35-47) % MCV (78-100) fL MCH (26-32) pg MCHC (32-36) g/dL RDW (11.5-14.0) % Plt Count (150-450) x10^3/uL MPV (7.5-11.0) fL Gran % (36.0-66.0) % Immature Gran % (Auto) (0.00-0.4) % Nucleat RBC Rel Count (0.00-0.1) % Eos # (Auto) (0-0.5) x10^3/uL Immature Gran # (Auto) (0.00-0.03) x10^3u/L Absolute Lymphs (auto) (1.0-4.6) x10^3/uL Absolute Monos (auto) (0.0-1.3) x10^3/uL Absolute Nucleated RBC (0.00-0.01) x10^3u/L Lymphocytes % (24.0-44.0) % Monocytes % (0.0-12.0) % Eosinophils % (0.00-5.0) % Basophils % (0.0-0.4) % Absolute Granulocytes (1.4-6.9) x10^3/uL Basophils # (0-0.4) x10^3/uL Sodium 132 L (137-145) mmol/L Potassium 4.2 (3.5-5.1) mmol/L Chloride 99 (98-107) mmol/L Carbon Dioxide 27 (22-30) mmol/L Anion Gap 9.7 (5-15) MEQ/L BUN 25 H (7-17) mg/dL Creatinine 1.41 H (0.52-1.04) mg/dL Estimated GFR 38.7 ML/MIN Glucose 139 H (74-106) mg/dL Calcium 9.6 (8.4-10.2) mg/dL Total Bilirubin 0.50 (0.2-1.3) mg/dL AST 31 (14-36) U/L ALT 35 (0-35) U/L Alkaline Phosphatase 112 (38-126) U/L Troponin I < 0.012 (0.000-0.034) ng/mL NT-Pro-B Natriuret Pep 289 (<300) pg/mL Serum Total Protein 6.9 (6.3-8.2) g/dL Albumin 3.8 (3.5-5.0) g/dL 02/08/ Range/Units 02:28 WBC 11.1 H (4.0-10.5) x10^3/uL RBC 3.46 L (4.1-5.4) x10^6/uL Hgb 10.8 L (12.0-16.0) g/dL Hct 34.3 L (35-47) % MCV 99.1 (78-100) fL MCH 31.2 (26-32) pg MCHC 31.5 L (32-36) g/dL RDW 13.8 (11.5-14.0) % Plt Count 285 (150-450) x10^3/uL MPV 11.1 H (7.5-11.0) fL Gran % 70.7 H (36.0-66.0) % Immature Gran % (Auto) 1.0 H (0.00-0.4) % Nucleat RBC Rel Count 0.0 (0.00-0.1) % Eos # (Auto) 0.36 (0-0.5) x10^3/uL Immature Gran # (Auto) 0.11 H (0.00-0.03) x10^3u/L Absolute Lymphs (auto) 1.19 (1.0-4.6) x10^3/uL Absolute Monos (auto) 1.54 H (0.0-1.3) x10^3/uL Absolute Nucleated RBC 0.00 (0.00-0.01) x10^3u/L Lymphocytes % 10.7 L (24.0-44.0) % Monocytes % 13.9 H (0.0-12.0) % Eosinophils % 3.2 (0.00-5.0) % Basophils % 0.5 (0.0-0.4) % Absolute Granulocytes 7.86 H (1.4-6.9) x10^3/uL Basophils # 0.05 (0-0.4) x10^3/uL Sodium (137-145) mmol/L Potassium (3.5-5.1) mmol/L Chloride (98-107) mmol/L Carbon Dioxide (22-30) mmol/L Anion Gap (5-15) MEQ/L BUN (7-17) mg/dL Creatinine (0.52-1.04) mg/dL Estimated GFR ML/MIN Glucose (74-106) mg/dL Calcium (8.4-10.2) mg/dL Total Bilirubin (0.2-1.3) mg/dL AST (14-36) U/L ALT (0-35) U/L Alkaline Phosphatase (38-126) U/L Troponin I (0.000-0.034) ng/mL NT-Pro-B Natriuret Pep (<300) pg/mL Serum Total Protein (6.3-8.2) g/dL Albumin (3.5-5.0) g/dL - Progress Progress: re-examined, unchanged Air Movement: good Progress Note: 02/08/23 02:14 77 years old female with multiple medical problems including hypertension, COPD, anxiety with positive COVID-19 diagnosed 4 days ago having supportive care at home presented in the ER with complaints of coughing up thick mucus and burning of eyes and burning in the chest with coughing. Patient denies any difficulty breathing. She does have oxygen at home but does not use it normally. She is having a saturation around 94% on room air on presentation in the ER. She is not having fevers. Denies any vomiting diarrhea, feeling dizzy or lightheaded. Patient wants to make sure she does not have a pneumonia. She does not want to try Paxlovid. Patient reports it feels sand in her eyes with some redness. She has not been using any lubricants/artificial tears. 02/08/23 03:08 Patient is not in any distress. Lungs fairly clear to auscultation, maintaining oxygen saturation around 94% on room air. Not tachypneic or tachycardic. Minimally elevated white count, chemistries fairly unremarkable. Chest x-ray negative for any acute cardiopulmonary findings reviewed by me, official report is pending. I believe patient has viral syndrome secondary to COVID-19 and recommended continue with supportive care as she does not want Paxlovid. Recommended artificial tears/lubricant and outpatient follow-up. Discussed signs symptoms of worsening needing return to ER which she seems understanding. I do not think patient needs to be admitted or any other workup and is stable for discharge. Blood Culture(s) Obtained: No Antibiotics given: No Counseled pt/family regarding: lab results, diagnosis, need for follow-up, rad results Medical Desision Making - Diagnostic Testing Diagnostic test were ordered, analyzed, and reviewed by me: Yes Radiological Interpretation: Interpreted by me, Reviewed by me - Departure Departure Disposition: Home Clinical Impression: Viral syndrome, COVID-19 Condition: Stable Critical Care Time: No Referrals: ANTHONY SOLO NP [Primary Care Provider] - Follow up with PCP 1 day Instructions: Cough, Adult (DC), COVID-19 (DC) Additional Instructions: Continue with your current medications. Use artificial tears/lubricants. Follow-up with primary care physician for reevaluation. Return to ER for worsening cough or if having difficulty breathing/chest pains/persistent high- grade fever chills etc.
[2023-02-08 02:31] LABS: Absolute Neutrophil Ct (ANC) 7.86 x10^3/uL (1.4-6.9); BASOPHIL % 0.5 % (0.0-0.4); Basophil (Absolute #) 0.05 x10^3/uL (0-0.4); Eosinophil % 3.2 % (0.00-5.0); Eosinophil (Absolute #) 0.36 x10^3/uL (0-0.5); Hematocrit 34.3 % (35-47); Hemoglobin 10.8 g/dL (12.0-16.0); IMMATURE GRAN # 0.11 x10^3u/L (0.00-0.03); Lymphocyte (Absolute #) 1.19 x10^3/uL (1.0-4.6); Lymphocytes % 10.7 % (24.0-44.0); Mean Cell Volume 99.1 fL (78-100); Mean Corpuscular Hemoglobin 31.2 pg (26-32); Mean Corpuscular Hgb Concent. 31.5 g/dL (32-36); Mean Platelet Volume 11.1 fL (7.5-11.0); Monocyte (Absolute #) 1.54 x10^3/uL (0.0-1.3); Monocytes % 13.9 % (0.0-12.0); Neutrophil % 70.7 % (36.0-66.0); Platelet Count 285 x10^3/uL (150-450); Red Blood Count 3.46 x10^6/uL (4.1-5.4); Red Cell Distribution Width 13.8 % (11.5-14.0); White Blood Count 11.1 x10^3/uL (4.0-10.5)
[2023-02-08 02:44] LABS: ALBUMIN 3.8 g/dL (3.5-5.0); ANION GAP 9.7 MEQ/L (5-15); BILIRUBIN,TOTAL 0.5 mg/dL (0.2-1.3); Calcium 9.6 mg/dL (8.4-10.2); Creatinine 1 1.41 mg/dL (0.52-1.04); EST GLOMERULAR FILTRATION RATE 38.7 ML/MIN; Potassium 4.2 mmol/L (3.5-5.1); Total Protein 6.9 g/dL (6.3-8.2)
[2023-02-08 03:09] VITALS: O2SAT 93
[2023-02-08 03:11] VITALS: BP 130/78; PULSE 80; RESP 18
[2023-02-08 04:25] LABS: Slide Review 1 YES
--- NOTE | 2023-02-08 08:35 | XRAY ---
Indication: Cough. Positive Covid 19. Comparison: May 24, 2020 Portable chest again demonstrates chronic right hemidiaphragm elevation and tiny left lung calcified granuloma. No focal infiltrate, consolidation, or large effusion. Heart not enlarged again with small hiatal hernia. Bony thorax intact again with osteopenia and mild degenerative changes. Impression: Continued nonacute chest with chronic features.
== END 2023-02-08 03:40 | disposition home or self-care (01) ==
LOC: ED 01:19
DX: U07.1 COVID-19 (principal); R05.1 Acute cough; H57.89 Other specified disorders of eye and adnexa; I10 Essential (primary) hypertension; Z79.899 Other long term (current) drug therapy; Z28.310 Unvaccinated for COVID-19; Z86.16 Personal history of COVID-19
CPT/HCPCS: 36415; 71045; 80053; 83880; 84484; 85025; 99283